=== PATIENT | female | born 2000 | race Caucasian/White ===

== ENCOUNTER 2021-11-08 12:56 | Emergency (ER) | payer OTHER ==
[2021-11-08 13:32] LABS: BASOPHILS % (AUTO) 0.4 %; EOSINOPHILS % (AUTO) 0.5 %; HCT - HEMATOCRIT 43.5 % (37.0-47.0); HGB - HEMOGLOBIN 14.4 g/dL (12.0-16.0); LYMPHOCYTES % (AUTO) 26.3 %; MEAN CORPUSCULAR HEMOGLOBIN 28.9 pg (27.0-31.0); MEAN CORPUSCULAR HGB CONC 33.1 g/dL (32.0-36.0); MEAN CORPUSCULAR VOLUME 87.3 fL (81.0-99.0); MEAN PLATELET VOLUME 10.4 fL (7.9-10.8); MONOCYTES # (AUTO) 0.5 10^3/uL (0.0-1.0); MONOCYTES % (AUTO) 6.7 %; NEUTROPHILS % (AUTO) 65.8 %; PLT - PLATELET COUNT 292 10^3/uL (130-450); RED BLOOD COUNT 4.98 10^6/uL (4.20-5.40); RED CELL DISTRIBUTION WIDTH 11.9 % (12.0-15.0); WHITE BLOOD COUNT 7.6 x10^3/uL (4.8-10.8)
[2021-11-08 13:58] LABS: ALBUMIN 4.1 g/dL (3.2-5.5); ALBUMIN/GLOBULIN RATIO 1.3 (1.0-2.2); BILIRUBIN,TOTAL 0.9 mg/dL (0.2-1.0); CALCIUM 9.1 mg/dL (8.5-10.3); CREATININE 0.7 mg/dL (0.4-1.0); POTASSIUM 4.1 mmol/L (3.5-5.0); TOTAL PROTEIN 7.2 g/dL (6.7-8.2)
[2021-11-08] MEDS ORDERED: SODIUM CHLORIDE 0.9% 1,000 ML IV STA (13:58)
--- NOTE | 2021-11-08 13:59 | ED Physician Documentation ---
PD HPI ABD PAIN - Stated complaint Stated Complaint: ABD PAIN/NAUSEA - Chief complaint Chief Complaint: Abd Pain - History obtained from History obtained from: Patient - Additional information Additional information: Patient comes the emergency department chief complaint of lower abdominal pain with nausea and vomiting for the last approximately 5 days. She states she has not been able to keep anything down including food or liquids during that time. She states it started with some mild lower abdominal discomfort and did not seem to be too bad. She went to the fair the next day and after eating some the food at the fair, began vomiting. That was 5 days ago. The patient denies a feeling of fever or chills, though she was seen in the urgent care clinic a couple of days ago and told she had a temperature of about 100 orally. Patient denies any cough or shortness of breath. She denies dysuria, back pain, diarrhea, or vaginal symptoms. She is not known to be . No other complaints at this time. Review of Systems Ten Systems: 10 systems reviewed and negative Constitutional: reports: Reviewed and negative Eyes: reports: Reviewed and negative Ears: reports: Reviewed and negative Nose: reports: Reviewed and negative Throat: reports: Reviewed and negative Cardiac: reports: Reviewed and negative Respiratory: reports: Reviewed and negative GI: reports: Abdominal Pain, Nausea, Vomiting : reports: Reviewed and negative Skin: reports: Reviewed and negative Musculoskeletal: reports: Reviewed and negative Neurologic: reports: Reviewed and negative Psychiatric: reports: Reviewed and negative Endocrine: reports: Reviewed and negative Immunocompromised: reports: Reviewed and negative PD PAST MEDICAL HISTORY - Past Medical History Past Medical History: Yes - Past Surgical History Past Surgical History: No - Present Medications Home Medications: Ambulatory Orders Medication Instructions Recorded Confirmed Ondansetron Odt [Zofran] 4 mg TL Q6H PRN #10 tablet 11/08/21 - Allergies Allergies/Adverse Reactions: Allergies Allergy/AdvReac Type Severity Reaction Status Date / Time sumatriptan Allergy Anaphylaxis Verified 11/08/21 13:05 - Social History Does the pt smoke?: No Smoking Status: Never smoker Does the pt drink ETOH?: No Does the pt have substance abuse?: No - Immunizations Immunizations are current?: Yes - POLST Patient has POLST: No PD ED PE NORMAL - Vitals Vital signs reviewed: Yes - General General: Alert and oriented X 3, No acute distress, Well developed/nourished - HEENT HEENT: Atraumatic, PERRL, EOMI, Moist mucous membranes - Neck Neck: Supple, no meningeal sign - Cardiac Cardiac: RRR, No murmur, Strong equal pulses - Respiratory Respiratory: No respiratory distress, Clear bilaterally - Abdomen Abdomen: Soft, Non distended, Other (Moderate tenderness left lower quadrant, no rebound or guarding) - Back Back: No CVA TTP - Derm Derm: Normal color, Warm and dry, No rash - Extremities Extremities: No deformity, No edema - Neuro Neuro: Alert and oriented X 3, 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, No motor deficit, Normal speech, Other (Grossly intact) - Psych Psych: Normal mood, Normal affect Results - Vitals Vitals: Vital Signs - 24 hr 11/08/21 11/08/21 13:01 15:50 Temperature 36.9 C Heart Rate 76 48 L Respiratory 16 18 Rate Blood Pressure 145/58 H 130/70 O2 Saturation 99 99 Oxygen O2 Source Room air - Labs Labs: Laboratory Tests 11/08/21 11/08/21 11/08/21 13:17 13:17 14:20 WBC 7.6 RBC 4.98 Hgb 14.4 Hct 43.5 MCV 87.3 MCH 28.9 MCHC 33.1 RDW 11.9 L Plt Count 292 MPV 10.4 Neut # (Auto) 5.0 Lymph # (Auto) 2.0 [place] # (Auto) 0.5 Eos # (Auto) 0.0 Baso # (Auto) 0.0 Absolute Nucleated RBC 0.00 Nucleated RBC % 0.0 Sodium 138 Potassium 4.1 Chloride 105 Carbon Dioxide 26 Anion Gap 7.0 BUN 8 Creatinine 0.7 Estimated GFR (MDRD) 108 Glucose 90 Calcium 9.1 Total Bilirubin 0.9 AST 17 ALT 19 Alkaline Phosphatase 59 Total Protein 7.2 Albumin 4.1 Globulin 3.1 Albumin/Globulin Ratio 1.3 Lipase 28 Urine Color YELLOW Urine Clarity CLEAR Urine pH 7.0 Ur Specific [place] 1.020 Urine Protein NEGATIVE Urine Glucose (UA) NEGATIVE Urine Ketones NEGATIVE Urine Occult Blood NEGATIVE Urine Nitrite NEGATIVE Urine Bilirubin NEGATIVE Urine Urobilinogen 1 (NORMAL) Ur Leukocyte Esterase NEGATIVE Ur Microscopic Review NOT INDICATED Urine Culture Comments NOT INDICATED Urine HCG, Qual NEGATIVE Urine Opiates Screen NEGATIVE Ur Oxycodone Screen NEGATIVE Urine Methadone Screen NEGATIVE Ur Propoxyphene Screen NEGATIVE Ur Barbiturates Screen NEGATIVE Ur Tricyclics Screen NEGATIVE Ur Phencyclidine Scrn NEGATIVE Ur Amphetamine Screen NEGATIVE U Methamphetamines Scrn NEGATIVE U Benzodiazepines Scrn NEGATIVE Urine Cocaine Screen NEGATIVE U Cannabinoids Screen NEGATIVE PD MEDICAL DECISION MAKING - ED course Complexity details: reviewed results, re-evaluated patient, considered differential, d/w patient ED course: The patient was treated with IV fluids, Toradol and Zofran, and worked up with laboratory studies and CT scan of the abdomen and pelvis, both of which were ultimately negative. Urinalysis was also sent and negative. I discussed the findings with the patient and that she most likely has a viral illness. We have discussed timeline for expected resolution of symptoms and the usual indications for follow-up and return. Departure - Departure Disposition: 01 Home, Self Care Clinical Impression: Viral syndrome Vomiting Qualifiers: Vomiting type: bilious vomiting Nausea presence: with nausea Qualified Code(s): R11.14 - Bilious vomiting Condition: Stable Instructions: ED Viral Syndrome, ED Nausea Vomiting Prescriptions: Ondansetron Odt [Zofran] 4 mg TL Q6H PRN #10 tablet PRN Reason: Nausea / Vomiting Comments: Your labs and CT look good, as does your urinalysis. There is no evidence of a serious condition causing your symptoms. You most likely have one of the many viruses that go around and cause such symptoms. In general, these symptoms are self-limited, given several days to week. A prescription for nausea medication has been electronically transmitted to [facility] in [place], your pharmacy of preference on record. You do not have appendicitis, diverticulitis, or gallstones, the most common conditions that would require antibiotics or surgery. You also do not have a urinary tract infection or kidney stones. Please take the medications prescribed, as needed. Take only very small amounts of clear liquids by mouth over the next 24 hours. Take only 1 or 2 sips, then wait a minimum of 20 minutes before trying it again. If you tolerate this, then you may gradually drink more clear liquid and ultimately, progressed to simple starches like saltine crackers, Ramen noodles, or white rice. If you tolerate these, then you may progress to more complex foods. You should follow-up with your primary care physician if you are not feeling better by the end of the weekend. Forms: Activity restrictions Discharge Date/Time: 11/08/21 15:55
[2021-11-08 14:24] LABS: MUDS CUTOFF CONCENTRATIONS CUTOFF CONC BELOW:
[2021-11-08 14:30] LABS: BILIRUBIN,URINE NEGATIVE (NEGATIVE); GLUCOSE, URINE (UA) NEGATIVE (NEGATIVE); KETONES,URINE (UA) NEGATIVE (NEGATIVE); LEUKOCYTE ESTERASE, URINE NEGATIVE (NEGATIVE); NITRITE,URINE NEGATIVE (NEGATIVE); OCCULT BLOOD,URINE NEGATIVE (NEGATIVE); PROTEIN,URINE NEGATIVE (NEGATIVE); UROBILINOGEN,URINE 1 (NORMAL) E.U./dL (NORMAL)
[2021-11-08 14:32] LABS: CLARITY,URINE CLEAR (CLEAR); HCG UR QUAL NEGATIVE
[2021-11-08 14:39] LABS: AMPHETAMINE SCREEN,URINE NEGATIVE (NEGATIVE); BARBITURATE SCREEN,UR NEGATIVE (NEGATIVE); BENZODIAZEPINES SCREEN, URINE NEGATIVE (NEGATIVE); COCAINE SCREEN URINE NEGATIVE (NEGATIVE); METHADONE SCREEN, URINE NEGATIVE (NEGATIVE); METHAMPHETAMINES SCREEN, URINE NEGATIVE (NEGATIVE); OPIATE SCREEN, URINE NEGATIVE (NEGATIVE); OXYCODONE SCREEN, URINE NEGATIVE (NEGATIVE); PROPOXYPHENE SCREEN, URINE NEGATIVE (NEGATIVE); THC CANNABINOID SCREEN, URINE NEGATIVE (NEGATIVE); TRICYCLIC ANTIDEPRESSANT,URINE NEGATIVE (NEGATIVE)
--- NOTE | 2021-11-08 15:28 | CT Report ---
PROCEDURE: Abdomen/Pelvis W INDICATIONS: LLQ abd pain/vomiting CONTRAST: IV CONTRAST: Optiray 320 ml: 100 PO CONTRAST: *NO PO CONTRAST TECHNIQUE: After the administration of IV contrast, 5 mm thick sections acquired from the diaphragms to the symp hysis. 5 mm thick coronal and sagittal reformats were acquired. For radiation dose reduction, the f ollowing was used: automated exposure control, adjustment of mA and/or kV according to patient size. COMPARISON: None. FINDINGS: Image quality: Excellent. ABDOMEN: Lung bases: Lung bases are clear. Heart size is normal. Solid organs: Liver and spleen are normal in size and enhancement. Gallbladder is within normal gutierrez its Biliary system is non dilated. Pancreas enhances normally. No adrenal nodules. Kidneys demons trate normal size and enhancement, without hydronephrosis. Peritoneum and bowel: Bowel loops demonstrate normal wall thickness and caliber. No free fluid or a ir. Normal appendix. Nodes and vessels: No retroperitoneal or mesenteric adenopathy by size criteria. Aorta and inferior vena cava are normal in size. Miscellaneous: No ventral hernias. PELVIS: Genitourinary: Bladder wall thickness is normal. Miscellaneous: No inguinal hernias or adenopathy. Bones: No suspicious bony lesions. No vertebral body compression fractures. IMPRESSION: 1. No acute process. 2. Normal appendix. Reviewed by: Gary Loomis MD on 11/08/2021 3:26 PM PDT Approved by: Gary Loomis MD on 11/08/2021 3:26 PM PDT Station ID: [id number]
[2021-11-08] MEDS ORDERED: KETOROLAC 30 MG/ML VIAL IVP STA (15:42)
[2021-11-08 15:51] VITALS: BP 130/70
== END 2021-11-08 15:55 | disposition home or self-care (01) ==
LOC: ED 12:56
DX: B34.9 Viral infection, unspecified (principal)
CPT/HCPCS: 36415; 74177; 80053; 80306; 81003; 81025; 83690; 85025; 96374; 99282; 99284; Q9967; 81001; 87086

== ENCOUNTER → 2022-10-11 | Outpatient (CLI) | payer OTHER | END | disposition short-term general hospital (02) | LOC: EMS 16:11 | DX: R07.9 Chest pain, unspecified (principal); R00.0 Tachycardia, unspecified | CPT/HCPCS: A0425; A0427 ==

== ENCOUNTER 2023-01-16 16:36 | Emergency (ER) | payer OTHER ==
[2023-01-16 16:48] VITALS: BP 150/80; O2SAT 99
[2023-01-16] MEDS ORDERED: IBUPROFEN 800 MG TABLET PO STA (16:53)
--- NOTE | 2023-01-16 16:57 | ED Physician Documentation ---
PD HPI LOWER EXT INJURY - Stated complaint Stated Complaint: LT ANK INJ - Chief complaint Chief Complaint: Ext Problem - History obtained from History obtained from: Patient - Additional information Additional information: Inversion injury of the left ankle with moderate pain, last happened at 9 AM today while at work. Is able to walk and bear weight. No other injuries. 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 - Past Surgical History Past Surgical History: No - Present Medications Home Medications: Ambulatory Orders Medication Instructions Recorded Confirmed Metoprolol Tartrate [Lopressor] 25 mg PO DAILY 01/16/23 - Allergies Allergies/Adverse Reactions: Allergies Allergy/AdvReac Type Severity Reaction Status Date / Time sumatriptan Allergy Anaphylaxis Verified 11/08/21 13:05 - Social History Does the pt smoke?: No Smoking Status: Never smoker Does the pt drink ETOH?: No Does the pt have substance abuse?: No - Immunizations Immunizations are current?: Yes - POLST Patient has POLST: No PD ED PE NORMAL - Vitals Vital signs reviewed: Yes - General General: Alert and oriented X 3, No acute distress - Extremities Extremities: Other (Tenderness over the ATFL more than the lateral malleolus of the left ankle. No swelling or deformity. No proximal foot tenderness. No proximal fibular tenderness.) - Neuro Neuro: Alert and oriented X 3, Normal speech Results - Vitals Vitals: Vital Signs - 24 hr 01/16/23 01/16/23 16:43 16:53 Temperature 37 C Heart Rate 79 Respiratory 18 17 Rate Blood Pressure 150/80 H O2 Saturation 99 Oxygen O2 Source Room air - Rads (name of study) Three-view x-ray of left ankle is negative Relevant Findings:: Final report received, EMP independent interpretation of test PD Medical Decision Making - ED course ED course: 22-year-old woman with ankle sprain, x-ray done given pain over the malleolus as well with negative findings. Wanted a boot as opposed to an Aircast. Departure - Departure Disposition: 01 Home, Self Care Clinical Impression: Left ankle sprain Qualifiers: Encounter type: initial encounter Involved ligament of ankle: anterior talofibular ligament Qualified Code(s): S93.492A - Sprain of other ligament of left ankle, initial encounter Condition: Good Record reviewed to determine appropriate education?: Yes Instructions: ED Sprain Ankle W X Ray Comments: Tylenol and/or ibuprofen as needed for pain. You can walk and bear weight as tolerated but keep it up as much as possible. Ice may be helpful as well. Follow-up with your doctor in a week if not improving. Forms: PCP List Discharge Date/Time: 01/16/23 17:52
--- NOTE | 2023-01-16 18:01 | XRAY Report ---
PROCEDURE: Ankle 3 View LT INDICATIONS: ankle inj TECHNIQUE: 3 views of the ankle were acquired. COMPARISON: None. FINDINGS: Bones: No fractures or dislocations. Ankle mortise is normally aligned. No suspicious bony lesions . Soft tissues: No tibiotalar joint effusion. Achilles tendon appears normal. IMPRESSION: No acute bony abnormality. Ankle mortise is congruent. Reviewed by: Aidan Hinton MD on 01/16/2023 6:00 PM [facility] Approved by: Aidan Hinton MD on 01/16/2023 6:00 PM [facility] Station ID: [id number]
== END 2023-01-16 17:52 | disposition home or self-care (01) ==
LOC: ED 16:36
DX: S93.492A Sprain of other ligament of left ankle, initial encounter (principal); X50.1XXA Overexertion from prolonged static or awkward postures, initial encounter; Y99.0 Civilian activity done for income or pay
CPT/HCPCS: 73610; 99283; A9270

== ENCOUNTER 2023-02-05 08:00 | Outpatient (CLI) | payer OTHER ==
[2023-02-06 12:09] LABS: ADENOVIRUS F 40/41 Not Detected (Not Detected); ASTROVIRUS Not Detected (Not Detected); C DIFFICILE TOXIN A/B Not Detected (Not Detected); CAMPYLOBACTER Not Detected (Not Detected); CRYPTOSPORIDIUM Not Detected (Not Detected); CYCLOSPORA CAYETANENSIS Not Detected (Not Detected); ENTAMOEBA HISTOLYTICA Not Detected (Not Detected); ENTEROAGGREGATIVE E COLI Not Detected (Not Detected); ENTEROPATHOGENIC E COLI Not Detected (Not Detected); ENTEROTOXIGENIC E COLI Not Detected (Not Detected); GIARDIA LAMBLIA Not Detected (Not Detected); NOROVIRUS GI/GII Not Detected (Not Detected); PLESIOMONAS SHIGELLOIDES Not Detected (Not Detected); ROTAVIRUS A Not Detected (Not Detected); SALMONELLA Not Detected (Not Detected); SAPOVIRUS Detected (Not Detected); SHIGA-TOXIN-PRODUCING E COLI Not Detected (Not Detected); SHIGELLA/ENTEROINVASIVE E COLI Not Detected (Not Detected); VIBRIO Not Detected (Not Detected); VIBRIO CHOLERAE Not Detected (Not Detected); YERSINIA ENTEROCOLITICA Not Detected (Not Detected)
== END 2023-02-05 23:59 | disposition home or self-care (01) ==
LOC: LAB.R 08:00
PROVIDERS: ATTEND Physician Assistant
DX: K52.9 Noninfective gastroenteritis and colitis, unspecified (principal)
CPT/HCPCS: 87507

== ENCOUNTER 2023-02-10 22:30 | Inpatient (IN) | payer OTHER ==
[2023-02-10 23:03] LABS: BILIRUBIN,URINE NEGATIVE (NEGATIVE); GLUCOSE, URINE (UA) NEGATIVE (NEGATIVE); KETONES,URINE (UA) NEGATIVE (NEGATIVE); LEUKOCYTE ESTERASE, URINE NEGATIVE (NEGATIVE); NITRITE,URINE NEGATIVE (NEGATIVE); OCCULT BLOOD,URINE NEGATIVE (NEGATIVE); PH,URINE 6.5 PH (5.0-7.5); PROTEIN,URINE NEGATIVE (NEGATIVE); UROBILINOGEN,URINE 2 E.U./dL (NORMAL)
[2023-02-10 23:04] LABS: CLARITY,URINE CLEAR (CLEAR); HCG UR QUAL NEGATIVE
[2023-02-10 23:22] LABS: BASOPHILS % (AUTO) 0.3 %; EOSINOPHILS % (AUTO) 0.7 %; HCT - HEMATOCRIT 43.6 % (37.0-47.0); HGB - HEMOGLOBIN 14.4 g/dL (12.0-16.0); LYMPHOCYTES # (AUTO) 2.2 10^3/uL (1.5-3.5); LYMPHOCYTES % (AUTO) 35.3 %; MEAN CORPUSCULAR HEMOGLOBIN 28.7 pg (27.0-31.0); MEAN PLATELET VOLUME 10.1 fL (7.9-10.8); MONOCYTES # (AUTO) 0.6 10^3/uL (0.0-1.0); MONOCYTES % (AUTO) 9.6 %; NEUTROPHILS # (AUTO) 3.3 10^3/uL (1.5-6.6); NEUTROPHILS % (AUTO) 53.9 %; PLT - PLATELET COUNT 283 10^3/uL (130-450); RED BLOOD COUNT 5.01 10^6/uL (4.20-5.40); RED CELL DISTRIBUTION WIDTH 11.9 % (12.0-15.0); WHITE BLOOD COUNT 6.1 x10^3/uL (4.8-10.8)
[2023-02-10] MEDS ORDERED: ONDANSETRON 4 MG/2 ML VIAL IVP STA (23:34)
[2023-02-10] MEDS ORDERED: HYDROmorphone 1 MG/ML CARPUJECT IVP STA (23:34)
[2023-02-10] MEDS ORDERED: SODIUM CHLORIDE 0.9% 1,000 ML IV STA (23:34)
[2023-02-10 23:38] LABS: ALBUMIN 4.4 g/dL (3.2-5.5); ALBUMIN/GLOBULIN RATIO 1.6 (1.0-2.2); BILIRUBIN,TOTAL 0.4 mg/dL (0.2-1.0); CALCIUM 9.2 mg/dL (8.5-10.3); CREATININE 0.6 mg/dL (0.6-1.3); POTASSIUM 3.5 mmol/L (3.5-4.5); TOTAL PROTEIN 7.2 g/dL (6.4-8.9)
--- NOTE | 2023-02-11 01:03 | Ultrasound Report ---
PROCEDURE: Abdomen Limited INDICATIONS: abd. pain TECHNIQUE: Real-time focused scanning was performed of the abdomen, with image documentation. COMPARISONS: CT abdomen and pelvis dated 11/08/2021. FINDINGS: Liver: Liver is heterogeneous in echotexture with possible 1.6 x 0.9 cm echogenic focus in the left hepatic lobe, possibly representing a hemangioma. There is normal hepatopedal flow. Gallbladder: Gallbladder wall measures at the upper limits of normal at 3 mm. Otherwise, no sonograph ic evidence for acute cholecystitis or cholelithiasis. Biliary ducts: Intrahepatic bile ducts are non-dilated. Extrahepatic bile duct caliber measures 4 m m. Normal is 6-7 mm or less in diameter, or 10 mm or less post-cholecystectomy. Pancreas: Not well visualized due to overlying bowel gas. Right kidney: Normal in size and echotexture. Right kidney measures 10.3 cm long. Tiny punctate echo genic foci measuring approximately 2 mm in size. No hydronephrosis. No solid masses. No complex bernadette l cystic lesions which require follow-up. Aorta: Visualized aorta is normal in caliber at less than 3 cm. IVC: Intrahepatic inferior vena cava is patent. Miscellaneous: No free abdominal fluid. IMPRESSION: Limited evaluation secondary to patient's inability to perform adequate breath-hold. There is also mo derate overlying bowel gas. There is heterogeneous hepatic echotexture with possible 1.6 cm left hepa tic lobe hemangioma. This was not definitively seen on comparison CT. Punctate nonobstructing 2 mm right renal stones. Borderline thickening of the gallbladder wall without evidence for cholelithiasis or acute cholecysti tis. Reviewed by: Tyler Gonsalez MD on 02/11/2023 1:01 AM PST Approved by: Tyler Gonsalez MD on 02/11/2023 1:01 AM PST Station ID: [id number]
[2023-02-11] MEDS ORDERED: ONDANSETRON 4 MG/2 ML VIAL IVP STA ×2 (01:20→05:19)
[2023-02-11] MEDS ORDERED: SODIUM CHLORIDE 0.9% 1,000 ML IV STA ×2 (01:20→05:19)
[2023-02-11] MEDS ORDERED: iohexoL-300 100 ML VIAL IVP ONE (01:24)
[2023-02-11] MEDS ORDERED: LIDOCAINE VISCOUS 2% 15 ML UDC MM STA (01:37)
[2023-02-11] MEDS ORDERED: MAG HYDROX/AL HYDROX/SIMETH 30 ML UDC PO STA ×2 (01:37→06:38)
[2023-02-11] MEDS ORDERED: KETOROLAC 30 MG/ML VIAL IVP STA (01:38)
[2023-02-11] MEDS ORDERED: PANTOPRAZOLE 40 MG VIAL IVP STA (01:38)
--- NOTE | 2023-02-11 01:59 | CT Report ---
PROCEDURE: ABDOMEN/PELVIS W INDICATIONS: abd. pain, TTP (RUQ, LLQ) CONTRAST: Omni 300 100ml TECHNIQUE: After the administration of intravenous contrast, 5 mm thick sections acquired from the diaphragms to the symphysis. 5 mm thick coronal and sagittal reformats were acquired. For radiation dose reducti on, the following was used: automated exposure control, adjustment of mA and/or kV according to brit ent size. COMPARISON: 11/08/2021 and ultrasound performed earlier same day. FINDINGS: Image quality: Diagnostic. Lung bases and heart: Unremarkable. Liver: Liver appears unremarkable in CT appearance. Previously described possible echogenic lesion in the left hepatic lobe is not visualized on CT. There is diffuse hypoattenuation of the liver relativ e to the spleen compatible with mild hepatic steatosis. Gallbladder and biliary tree: No radiopaque stones or wall thickening. No biliary dilation. Spleen: No splenomegaly. Pancreas: No pancreatic ductal dilation. Adrenals: No adrenal nodule. Kidneys and ureters: No hydronephrosis. No renal cystic lesion which requires follow up. No solid mas s. Bowel and peritoneum: No bowel distension. No pathologic free fluid. Normal appendix. Lymph nodes: Multiple scattered prominent mesenteric lymph nodes are more notable in number rather th an size and likely reactive in etiology. Vessels: No infrarenal aortic aneurysm. PELVIS Reproductive organs: Unremarkable. Bladder: No abnormal wall thickening, accounting for underdistension. Pelvic lymph nodes: No pelvic adenopathy by size criteria. Bones: No aggressive osseous abnormality. Other: No significant ventral or inguinal hernia. IMPRESSION: Multiple scattered prominent mesenteric lymph nodes which are more notable for number rather than siz e and are favored to represent reactive lymph nodes. Follow-up imaging can be considered if persisten t or worsening symptoms. Otherwise, no acute abnormalities identified in the abdomen or pelvis. The appendix is normal. Mild hepatic steatosis. Reviewed by: Tyler Gonsalez MD on 02/11/2023 1:58 AM PST Approved by: Tyler Gonsalez MD on 02/11/2023 1:58 AM PST Station ID: [id number]
--- NOTE | 2023-02-11 02:29 | ED Physician Documentation ---
PD HPI ABD PAIN - Stated complaint Stated Complaint: N/V/D/ABD PX - Chief complaint Chief Complaint: Abd Pain - History obtained from History obtained from: Patient - Additional information Additional information: HPI from patient. Patient c/o 8 days of nausea, vomiting, diarrhea, and generalized abdominal pain. There was no inciting event. The symptoms are exacerbated with PO intake; the n/v has progressed to the point of not tolerating any PO intake including liquids (she says she did have a small amount of food last night for dinner but vomited several hours later what appeared to be undigested food that she had for dinner). Patient did not have improvement with Zofran (prescribed for a previous illness, but was not an outdated/ prescription). 5 days ago, she went to a walk-in clinic for evaluation of the symptoms. She says that a stool test was performed and this detected no evidence of infectious cause. She says that Phenergan was prescribed. However, she says that not only did the Phenergan help with the symptoms, but she describes significant akathisia and thus did not take any more doses. Patient denies fever. Denies past abd/pelvic surgical history. Review of Systems Constitutional: denies: Fever Cardiac: reports: Reviewed and negative Respiratory: reports: Reviewed and negative GI: reports: Abdominal Pain, Abdominal Swelling, Nausea, Vomiting, Diarrhea. 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 - Past Surgical History Past Surgical History: No - Present Medications Home Medications: Ambulatory Orders Medication Instructions Recorded Confirmed Metoprolol Tartrate [Lopressor] 25 mg PO DAILY 01/16/23 - Allergies Allergies/Adverse Reactions: Allergies Allergy/AdvReac Type Severity Reaction Status Date / Time sumatriptan Allergy Anaphylaxis Verified 02/10/23 22:49 promethazine [From Phenergan] AdvReac Anxiety Verified 02/11/23 08:00 - Social History Does the pt smoke?: No Smoking Status: Never smoker Does the pt drink ETOH?: No Does the pt have substance abuse?: No - Immunizations Immunizations are current?: Yes - POLST Patient has POLST: No PD ED PE NORMAL - Vitals Vital signs reviewed: Yes - General General: Alert and oriented X 3, Other (appears to be in painful discomfort) - HEENT HEENT: Other (tacky/pasty mucous membranes) - Neck Neck: Supple, no meningeal sign - Cardiac Cardiac: RRR, No murmur - Respiratory Respiratory: No respiratory distress, Clear bilaterally - Abdomen Abdomen: Normal bowel sounds, Soft, Non distended, Other (mild TTP diffusely but more prominent in RUQ and LLQ; no rebound nor guarding) - Back Back: No CVA TTP Results - Vitals Vitals: Vital Signs - 24 hr 02/10/23 02/10/23 02/11/23 22:41 22:48 00:05 Temperature 36.7 C Heart Rate 86 86 67 Respiratory 18 18 17 Rate Blood Pressure 121/71 O2 Saturation 98 98 98 02/11/23 02/11/23 02/11/23 02:00 02:39 04:00 Temperature Heart Rate 67 66 71 Respiratory 17 17 17 Rate Blood Pressure 101/49 L O2 Saturation 97 98 99 02/11/23 06:00 Temperature Heart Rate 64 Respiratory 17 Rate Blood Pressure 128/65 O2 Saturation 96 Oxygen O2 Source Room air - Labs Labs: Laboratory Tests 02/10/23 02/10/23 02/10/23 22:54 23:07 23:07 WBC 6.1 RBC 5.01 Hgb 14.4 Hct 43.6 MCV 87.0 MCH 28.7 MCHC 33.0 RDW 11.9 L Plt Count 283 MPV 10.1 Neut # (Auto) 3.3 Lymph # (Auto) 2.2 [place] # (Auto) 0.6 Eos # (Auto) 0.0 Baso # (Auto) 0.0 Absolute Nucleated RBC 0.00 Nucleated RBC % 0.0 Sodium 137 Potassium 3.5 Chloride 104 Carbon Dioxide 27 Anion Gap 6.0 BUN 7 Creatinine 0.6 Estimated GFR (MDRD) 126 Glucose 94 Calcium 9.2 Total Bilirubin 0.4 AST 12 ALT 17 Alkaline Phosphatase 59 Total Protein 7.2 Albumin 4.4 Globulin 2.8 Albumin/Globulin Ratio 1.6 Lipase 57 Urine Color YELLOW Urine Clarity CLEAR Urine pH 6.5 Ur Specific [place] 1.010 Urine Protein NEGATIVE Urine Glucose (UA) NEGATIVE Urine Ketones NEGATIVE Urine Occult Blood NEGATIVE Urine Nitrite NEGATIVE Urine Bilirubin NEGATIVE Urine Urobilinogen 2 H Ur Leukocyte Esterase NEGATIVE Ur Microscopic Review NOT INDICATED Urine Culture Comments NOT INDICATED Urine HCG, Qual NEGATIVE - Rads (name of study) RUQ US Relevant Findings:: Prelim report reviewed, See rad report CT A/P with IV contrast Relevant Findings:: Prelim report reviewed, See rad report PD Medical Decision Making - ED course Complexity details: reviewed results, re-evaluated patient, considered differential, d/w patient ED course: I am able to see the results of the stool studies that were performed 02/05/2023, and there is a positive result on this test for sapovirus. This could certainly explain GI symptoms and cramping abdominal discomfort but the persistence of symptoms this long would be atypical for this organism. The panel was negative for a number of other infectious agents including c. diff, salmonella, norovirus, rotavirus, shigella, enteroinvasive e. coli, campylobacter. Patient CBC is normal except for low RDW. ER abdominal panel is normal. Urinalysis is normal except for urobilinogen. Urine hCG negative. Right upper quadrant ultrasound is limited, mostly due to overlying bowel gas, but there are no concerning or diagnostic findings on this study. A 1.6 cm hepatic lesion is noted suspicious for hemangioma; this can be followed up in the outpatient setting. Incidental note is also made of "punctate nonobstructing 2 mm right renal stones" (per radiologist reading).Radiologist reading also notes "borderline thickening of the gallbladder wall without evidence for cholelithiasis or acute cholecystitis". CT with contrast of the abdomen and pelvis is interpreted by the radiologist as "multiple scattered prominent mesenteric lymph nodes which are more notable for number rather than size and are favored to represent reactive lymph nodes. Follow-up imaging can be considered if persistent or worsening symptoms. Otherwise no acute abnormalities identified in the abdomen or pelvis. The appendix is normal. Mild hepatic steatosis". Despite nondiagnostic findings on these tests, patient's symptoms were persistent, particularly the nausea and vomiting, despite treatment which included IV fluids, IV zofran (8 mg IVP, subsequently given 4mg IV), PO viscous lidocaine with maalox w/ simethicone, 40mg IVP protonix, 30mg IV ketorolac. She was also given 1mg IV dilaudid which improved the pain level but required a second dose for gradually returning pain. The second dose did achieve good analgesia. Despite these interventions, she had recurrent vomiting. I discussed this case with telehealth who agrees with admission to [facility] for persistent/intractable vomiting. I did not order phenergan due to the description of akithesia with recent PO dose (reglan and compazine likely to cause similar side effect). Would consider inapsine but [facility] does not currently have this medication in stock. Telehealth practitioner says his orders will include doxylamine. Departure - Departure Disposition: ED Place in Observation Clinical Impression: Intractable vomiting with nausea, Abdominal pain Condition: Good
[2023-02-11] MEDS ORDERED: HYDROmorphone 1 MG/ML CARPUJECT IVP STA (05:19)
[2023-02-11] MEDS ORDERED: ONDANSETRON ODT 4 MG TABLET TL PRN (06:41)
[2023-02-11] MEDS ORDERED: DOXYLAMINE 25 MG TABLET PO PRN (06:45)
[2023-02-11] MEDS ORDERED: PANTOPRAZOLE 40 MG TABLET PO SCH (07:00)
[2023-02-11 07:13] LABS: BASOPHILS % (AUTO) 0.2 %; EOSINOPHILS # (AUTO) 0.1 10^3/uL (0.0-0.7); EOSINOPHILS % (AUTO) 1.6 %; HGB - HEMOGLOBIN 13.5 g/dL (12.0-16.0); LYMPHOCYTES # (AUTO) 2.4 10^3/uL (1.5-3.5); LYMPHOCYTES % (AUTO) 47.8 %; MEAN CORPUSCULAR HEMOGLOBIN 28.7 pg (27.0-31.0); MEAN CORPUSCULAR HGB CONC 32.9 g/dL (32.0-36.0); MEAN PLATELET VOLUME 10.1 fL (7.9-10.8); MONOCYTES # (AUTO) 0.5 10^3/uL (0.0-1.0); MONOCYTES % (AUTO) 9.2 %; NEUTROPHILS # (AUTO) 2.1 10^3/uL (1.5-6.6); PLT - PLATELET COUNT 240 10^3/uL (130-450); RED BLOOD COUNT 4.71 10^6/uL (4.20-5.40); RED CELL DISTRIBUTION WIDTH 11.9 % (12.0-15.0)
[2023-02-11 07:32] LABS: ALBUMIN 3.9 g/dL (3.2-5.5); ALBUMIN/GLOBULIN RATIO 1.6 (1.0-2.2); BILIRUBIN,TOTAL 0.4 mg/dL (0.2-1.0); CALCIUM 8.6 mg/dL (8.5-10.3); CREATININE 0.6 mg/dL (0.6-1.3); MAGNESIUM 1.7 mg/dL (1.7-2.3); POTASSIUM 3.4 mmol/L (3.5-4.5); TOTAL PROTEIN 6.3 g/dL (6.4-8.9)
[2023-02-11 07:44] LABS: THYROID STIMULATING HORMONE 5.65 uIU/mL (0.34-5.60)
--- NOTE | 2023-02-11 08:09 | HISTORY & PHYSICAL EXAMINATION ---
Chief Complaint - Chief Complaint Chief Complaint: N/V/D, abd pain History of Present Illness - Admitted From Admitted From:: ED - History Obtained From History obtained from: ED provider and the patient - History of Present Illness HPI Comment/Other: This is a 22-year-old female, is a [employer]ER, works here, with a history of migraines and takes oral contraceptive pill, has polycystic ovaries. She presented to the ER last night with complaints of 9 days of nausea, vomiting, diarrhea and abdominal pain. This is not the abd pain of her ovarian cysts. She has not even been able to keep down liquids orally for a day. She gets crampy abd pain and describes the diarrhea as watery or estrada-yellow and mucosy. She had a workup started on 02/05 in a clinic and a stool culture was sent off. This came back showing positive Sapovirus but negative for other organisms and neg for C. diff. In the ER today, she had abdominal pain and tenderness in the right abdomen and had incessant nausea and vomiting. She has required several doses of Dilaudid IV which helped the pain temporarily, and had multiple doses of antiemetics including repeat doses of Zofran, 8 mg, 4 mg doses, Phenergan was also given that caused her to be dystonic. Droperidol is not available. She underwent workup with CT abdomen pelvis that showed innumerable mesenteric lymph nodes, felt to be reactive. She had incidental findings of hepatic steatosis and a 1.6 cm left liver mass (probable hemangioma) and a punctate right-sided renal stones. The ER doctor reported these findings to her. She also underwent right upper quadrant ultrasound which was negative but there was a lot of intestinal gas seen. Her labs were stable and her hcg neg. While in the ER, she also received iv fluids, a GI cocktail, IV Protonix, IV Toradol and po Simethicone. Despite these, she has continued nausea and vomiting and the abd pain returns, is rated 9/10. The ER doctor spoke to the night Hospitalist who placed orders for Observation management of this patient, but did not meet the patient by video. The ER provider then spoke to me about the patient. She will be brought into Observation status for managing intractable nausea and vomiting. History - Past Medical History Cardiovascular: reports: None Respiratory: reports: None Neuro: reports: Migraines Endocrine/Autoimmune: reports: None CASH APPLICATION CLERK: reports: Other : reports: Other (Polycystic ovarian disease) Psych: reports: None Musculoskeletal: reports: None Derm: reports: None MRSA Hx?: No - Family & Social History Living arrangement: At home Living Situation: With spouse/s.o. Social History Notes: She is a non-smoker and drinks rarely. 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 - POLST Patient has POLST: No Meds/Allgy - Home Medications Home Medications: Ambulatory Orders Medication Instructions Recorded Confirmed Metoprolol Tartrate [Lopressor] 12.5 mg PO DAILY PRN 01/16/23 02/11/23 Norethindrone 0.35 mg PO DAILY 02/11/23 02/11/23 Promethazine [Phenergan] 25 mg PO Q6H PRN 02/11/23 02/11/23 Sertraline HCl 100 mg PO DAILY 02/11/23 02/11/23 - Allergies Allergies/Adverse Reactions: Allergies Allergy/AdvReac Type Severity Reaction Status Date / Time sumatriptan Allergy Anaphylaxis Verified 02/10/23 22:49 promethazine [From Phenergan] AdvReac Anxiety Verified 02/11/23 08:00 Review of Systems - Constitutional Constitutional: reports: Poor appetite - Gastrointestinal Gastrointestinal: reports: Abdominal pain, Abdominal distention, Diarrhea, Nausea, Vomiting - All Other Systems All Other Systems: reports: Reviewed and negative Exam - Vital Signs Vital Signs: Vital Signs x48h Pulse Resp BP Pulse Ox 02/11/23 06:00 64 17 128/65 96 02/11/23 04:00 71 17 99 02/11/23 02:39 66 17 101/49 L 98 02/11/23 02:00 67 17 97 02/11/23 00:05 67 17 98 - Physical Exam General Appearance: positive: Mild distress (from abd cramps) Eyes Bilateral: positive: Normal inspection, EOMI ENT: positive: No signs of dehydration Neck: positive: Nml inspection, No JVD Respiratory: positive: No respiratory distress, Breath sounds nml Cardiovascular: positive: Regular rate & rhythm, No murmur Abdomen: positive: Non-tender, No organomegaly, Nml bowel sounds Skin: positive: Warm, Dry Extremities: positive: Non-tender, No pedal edema Neurologic/Psychiatric: positive: Oriented x3, CN's nml (2-12), Motor nml Conclusion/Plan - Problem List (1) Intractable vomiting with nausea Conclusion/Plan: Etiology is not entirely clear. Her Sapovirus positive stool finding suggests that she had a viral ga stroenteritis. It is usually self-limited with symptoms subsiding in under a week. Hers have been lasting for 9 days. Excessive gas is found on imaging which could add to some of the symptoms but no t 9/10 pain Plan: Bowel rest by having clear liquid diet IV fluids Pain medications to include Tylenol and as needed Dilaudid iv Antiemetics with Zofran IV since Zofran trans lingual is not helping. The telemedicine night doctor also put her on Unisom and Pyridoxine which sometimes helps and nausea and vomiting of . I will add Haldol as needed nausea and vomiting as well Monitor for developing a surgical abdomen and will consider Gen Surg consult Avoid medications that could increase nausea such as marijuana (2) Diarrhea Conclusion/Plan: Her does not have any sx. She cannot remember eating anything unusual before her sx started. 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 Plan: Symptomatic treatment as in #1 and cont iv fluids (3) Polycystic ovarian disease Conclusion/Plan: Plan: Cont her hormonal meds Check a TSH, given her obesity (BMI 36.9) (4) Migraines Conclusion/Plan: As per Hx, none now Plan: Cont her B-yohana dosing for this - Lab Results Fish Bones: 02/12/23 10:59 02/12/23 10:59 - Diagnostic Imaging Results Diagnostic Imaging Results: positive: Final report reviewed
[2023-02-11] MEDS ORDERED: METOPROLOL TARTRATE 25 MG TABLET PO PRN (09:00)
[2023-02-11] MEDS: LACTATED RINGERS 1,000 ML IV SCH ×3 (09:04→23:15)
[2023-02-11] MEDS: PYRIDOXINE 100 MG TABLET PO SCH (09:06)
[2023-02-11] MEDS: SODIUM CHLORIDE FLUSH 0.9% 10 ML SYRINGE IVP SCH ×2 (09:06→16:29)
[2023-02-11] MEDS: ACETAMINOPHEN 325 MG TABLET PO PRN ×2 (09:06→16:23)
[2023-02-11] MEDS: SUCRALFATE 1 GM/10 ML UDC PO SCH ×4 (09:09→21:47)
[2023-02-11] MEDS: LACTOBACILLUS RHAMNOSUS GG CAPSULE PO SCH (09:12)
[2023-02-11] MEDS: SIMETHICONE CHEW 80 MG TABLET PO SCH ×3 (12:43→21:39)
[2023-02-11] MEDS: HYDROmorphone 1 MG/ML CARPUJECT IVP PRN ×4 (12:44→23:51)
[2023-02-11] MEDS: HALOPERIDOL 5 MG/ML VIAL IVP PRN ×2 (12:44→21:37)
[2023-02-11] MEDS: ONDANSETRON 4 MG/2 ML VIAL IVP PRN ×3 (14:40→23:44)
--- NOTE | 2023-02-11 14:49 | PHARMACY PROGRESS NOTE ---
- Best Possible Medication History Admit Date and Time: 02/11/23 0641 Processed by: Pharmacy Medication History completed: Yes Patient Interview: Completed Secondary Source(s): Insurance records As the person ultimately responsible for medication therapy, providers are able to order a medication from an existing home medication list in [facility] via the "Reconcile Routine" prior to Confirmation of that medication by presidential support specialist. Such practice is discouraged except when the physician, in their clinical judgment, deems that a medical need exists for a medication without regard to previous use.
[2023-02-11] MEDS ORDERED: SUCRALFATE 1 GM/10 ML UDC PO SCH ×2 (16:30→22:00)
[2023-02-11] MEDS: SODIUM CHLORIDE FLUSH 0.9% 10 ML SYRINGE IVP PRN ×4 (18:44→23:51)
[2023-02-11] MEDS: NORETHINDRONE 0.35 MG PO SCH (18:45)
[2023-02-11] MEDS ORDERED: NORETHINDRONE 0.35 MG PO SCH (19:30)
[2023-02-11] MEDS: PANTOPRAZOLE 40 MG VIAL IV SCH (21:36)
[2023-02-11] MEDS: LOPERAMIDE 2 MG CAPSULE PO PRN (23:51)
[2023-02-12] MEDS: SODIUM CHLORIDE FLUSH 0.9% 10 ML SYRINGE IVP SCH ×3 (01:40→18:03)
[2023-02-12] MEDS: ACETAMINOPHEN 325 MG TABLET PO PRN ×3 (01:47→17:10)
[2023-02-12] MEDS: HYDROmorphone 1 MG/ML CARPUJECT IVP PRN ×5 (04:50→22:07)
[2023-02-12] MEDS: ONDANSETRON 4 MG/2 ML VIAL IVP PRN ×4 (04:50→21:53)
[2023-02-12] MEDS: LACTATED RINGERS 1,000 ML IV SCH ×2 (06:38→16:55)
[2023-02-12] MEDS: SUCRALFATE 1 GM/10 ML UDC PO SCH ×4 (06:46→22:03)
[2023-02-12] MEDS: LACTOBACILLUS RHAMNOSUS GG CAPSULE PO SCH (08:18)
[2023-02-12] MEDS: PANTOPRAZOLE 40 MG VIAL IV SCH ×2 (08:18→22:03)
[2023-02-12] MEDS: PYRIDOXINE 100 MG TABLET PO SCH ×2 (08:18→21:57)
[2023-02-12] MEDS: SERTRALINE 50 MG TABLET PO SCH (08:18)
[2023-02-12] MEDS: SIMETHICONE CHEW 80 MG TABLET PO SCH ×4 (08:30→22:06)
[2023-02-12] MEDS ORDERED: METOPROLOL TARTRATE 25 MG TABLET PO PRN (10:40)
[2023-02-12 11:05] LABS: BASOPHILS % (AUTO) 0.5 %; EOSINOPHILS # (AUTO) 0.2 10^3/uL (0.0-0.7); EOSINOPHILS % (AUTO) 2.9 %; HCT - HEMATOCRIT 43.4 % (37.0-47.0); HGB - HEMOGLOBIN 14.2 g/dL (12.0-16.0); LYMPHOCYTES # (AUTO) 2.8 10^3/uL (1.5-3.5); LYMPHOCYTES % (AUTO) 42.5 %; MEAN CORPUSCULAR HEMOGLOBIN 27.8 pg (27.0-31.0); MEAN CORPUSCULAR HGB CONC 32.7 g/dL (32.0-36.0); MEAN CORPUSCULAR VOLUME 85.1 fL (81.0-99.0); MEAN PLATELET VOLUME 9.8 fL (7.9-10.8); MONOCYTES # (AUTO) 0.6 10^3/uL (0.0-1.0); MONOCYTES % (AUTO) 9.1 %; NEUTROPHILS % (AUTO) 44.8 %; PLT - PLATELET COUNT 295 10^3/uL (130-450); RED CELL DISTRIBUTION WIDTH 11.8 % (12.0-15.0); WHITE BLOOD COUNT 6.6 x10^3/uL (4.8-10.8)
[2023-02-12] MEDS: LOPERAMIDE 2 MG CAPSULE PO PRN (11:23)
[2023-02-12 14:26] LABS: ALBUMIN 4.4 g/dL (3.2-5.5); ALBUMIN/GLOBULIN RATIO 1.5 (1.0-2.2); BILIRUBIN,TOTAL 0.4 mg/dL (0.2-1.0); CALCIUM 9.6 mg/dL (8.5-10.3); CREATININE 0.8 mg/dL (0.6-1.3); MAGNESIUM 1.8 mg/dL (1.7-2.3); POTASSIUM 3.6 mmol/L (3.5-4.5); TOTAL PROTEIN 7.3 g/dL (6.4-8.9)
--- NOTE | 2023-02-12 14:56 | CT Report ---
PROCEDURE: ABDOMEN/PELVIS WO INDICATIONS: Persistent N/V, crampy abdominal pain, diarrhea TECHNIQUE: A CT scan of the abdomen and pelvis was performed without the use of intravenous contrast. Images we re recorded and evaluated at appropriate window settings. Reformats: coronal and sagittal. For radiat ion dose reduction, the following was used: automated exposure control, adjustment of mA and/or kV ac cording to patient size. COMPARISON: None. FINDINGS: Image quality: Excellent. Lung bases and heart: Unremarkable. Liver: No solid mass. Gallbladder and biliary tree: There is either milk of calcium present or numerous tiny stones or grav el. No gallbladder wall thickening. Spleen: No splenomegaly. Pancreas: No pancreatic ductal dilation. Adrenals: No adrenal nodule. Kidneys and ureters: No hydronephrosis. No renal cystic lesion which requires follow up. No solid mas s. Bowel and peritoneum: No bowel distension. No pathologic free fluid. Normal appendix. Lymph nodes: No central or retroperitoneal adenopathy. Vessels: No infrarenal aortic aneurysm. PELVIS Reproductive organs: Unremarkable. Bladder: No wall thickness, accounting for underdistention. Pelvic lymph nodes: No pelvic adenopathy by size criteria. Bones: No aggressive osseous abnormality. Other: No significant ventral or inguinal hernia. IMPRESSION: 1. No acute abdominal process noted. 2. Gallbladder milk of calcium versus numerous tiny stones or gravel. Reviewed by: Himanshu Rush MD on 02/12/2023 2:55 PM PST Approved by: Himanshu Rush MD on 02/12/2023 2:55 PM PST Station ID: [id number]
--- NOTE | 2023-02-12 16:40 | PROVIDER PROGRESS NOTE ---
Assessment/Plan - Problem List (1) Intractable vomiting with nausea Assessment/Plan: Etiology is not entirely clear. Her Sapovirus positive stool finding suggests that she had a viral gastroenteritis. It is usually self-limited with symptoms subsiding in under a week. Hers have been lasting for 9 days. Excessive gas was found on imaging which could add to some of the symptoms but not 9/10 pain Plan: When the medicines wear off, her nausea, vomiting and abdominal pain return. She is not ready ready for discharge. She will be admitted to inpatient status Cont clear liquid diet and iv maintenance fluids Repeat CT abd/pelvis today Cont pain medications to include Tylenol and as needed Dilaudid iv Cont Simethicone satnam QID Cont antiemetics with Zofran IV. The telemedicine night doctor also put her on Unisom and Pyridoxine which sometimes helps and nausea and vomiting of . These were ordered as needed. I will make the Unisom scheduled and make the pyridoxine scheduled and BID I will stop Haldol given her bradycardia and risk of QT prolongation. Monitor for developing a surgical abdomen and will consider Gen Surg consult Avoid medications that could increase nausea such as marijuana (2) Diarrhea Conclusion/Plan: Inciting cause is still unclear. 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 Plan: Symptomatic treatment as in #1 and cont iv fluids Imodium prn was started (3) Bradycardia Conclusion/Plan: While sleeping and asymptomatic, the patient's heart rate dropped to 29. This morning I learned she has a history of tachycardia-bradycardia syndrome and wore a Zio patch in the past Her bradycardia is not treating the tachycardia but was ordered for migraine treatment Plan: Will obtain an EKG, Echo and try to contact her carburizer, Dr Villaseñor at [facility] and learn what workup she had and what was found. Will stop the Metoprolol (4) Polycystic ovarian disease Her TSH was checked due to her obesity (BMI 36.9), and TSH came back elevated at 5.65 (upper limit of normal is 5.6) Plan: Cont her hormonal ( control?) meds Will check a free T4 to see if Thyroid meds are indicated (5) Migraines Conclusion/Plan: As per Hx, none now Plan: I will stop her beta-yohana, so that this will not promoting bradycardia She will need to be on different migraine medicine - Current Meds Current Meds: Current Medications Generic Name Dose Route Start Last Admin Trade Name Yoni PRN Reason Stop Dose Admin Acetaminophen 650 mg 02/11/23 06:50 02/12/23 08:18 Acetaminophen 325 Mg Tablet PO 650 mg Q6H PRN Administration Pain or Fever > 38C (100.4F) Hydromorphone HCl 1 mg 02/11/23 12:06 02/12/23 15:14 Hydromorphone 1 Mg/Ml Carpuject IVP 1 mg Q2HR PRN Administration Severe Pain (Level 7-10) Lactated Ringer's 1,000 mls @ 150 mls/hr 02/11/23 07:00 02/12/23 06:38 Lr IV 150 mls/hr .Q6H40M SATNAM Administration Lactobacillus Rhamnosus 1 cap 02/11/23 09:00 02/12/23 08:18 Lactobacillus Rhamnosus Gg Capsule PO 1 cap DAILY SATNAM Administration Loperamide HCl 2 mg 02/11/23 19:06 02/12/23 11:23 Loperamide 2 Mg Capsule PO 2 mg QID PRN Administration Diarrhea Ondansetron HCl 4 mg 02/11/23 12:08 02/12/23 08:59 Ondansetron 4 Mg/2 Ml Vial IVP 4 mg Q4HR PRN Administration Nausea / Vomiting Pantoprazole Sodium 40 mg 02/11/23 21:00 02/12/23 08:18 Pantoprazole 40 Mg Vial IV 40 mg BID SATNAM Administration Patient Own Med ( 1 each 02/11/23 19:00 02/11/23 18:45 Incassia 0.35mg) PO 1 each 1900 SATNAM Administration Sertraline HCl 100 mg 02/12/23 09:00 02/12/23 08:18 Sertraline 50 Mg Tablet PO 100 mg DAILY SATNAM Administration Simethicone 80 mg 02/11/23 13:00 02/12/23 15:13 Simethicone Chew 80 Mg Tablet PO 80 mg 0900,1300,1800,2100 SATNAM Administration Sodium Chloride 10 ml 02/11/23 06:41 02/11/23 23:51 Sodium Chloride Flush 0.9% 10 Ml Syringe IVP 10 ml PRN PRN Administration NEEDED PER PROVIDER ORDERS Sodium Chloride 10 ml 02/11/23 09:00 02/12/23 04:51 Sodium Chloride Flush 0.9% 10 Ml Syringe IVP 10 ml 0100,0900,1700 SATNAM Administration Sucralfate 1 gm 02/11/23 07:00 02/12/23 15:10 Sucralfate 1 Gm/10 Ml Udc PO 1 gm 0700,1100,1600,2200 SATNAM Administration - Lab Result Fish Bone Diagrams: 02/13/23 05:21 02/13/23 05:38 - EKG Results EKG Comparison: Old EKG unavailable EKG Findings: Normal sinus rhythm, normal intervals and axis, and is within normal limits. - Additional Planning My Orders: My Active Orders 02/11/23 19:00 Patient Own Med 1 each PO 1900 02/11/23 19:06 Loperamide [Imodium] 2 mg PO QID PRN 02/11/23 21:00 Pantoprazole [Protonix] 40 mg IV BID 02/12/23 09:00 Sertraline [Zoloft] 100 mg PO DAILY 02/12/23 10:40 Metoprolol Tartrate [Lopressor] 12.5 mg PO DAILY PRN 02/12/23 10:41 Echo Transthoracic Complete [ECHO] Routine 02/12/23 13:48 Telemetry- [RC] Q4HR 02/12/23 21:00 Doxylamine [Unisom] 25 mg PO QPM Pyridoxine [Vitamin B-6] 100 mg PO BID 02/13/23 05:00 BMP - BASIC METABOLIC PANEL [CHEM] DAILYLAB CBC - COMP BLD CT W/AUTO DIFF [HEME] DAILYLAB MAGNESIUM [CHEM] DAILYLAB 02/14/23 05:00 BMP - BASIC METABOLIC PANEL [CHEM] DAILYLAB CBC - COMP BLD CT W/AUTO DIFF [HEME] DAILYLAB 02/15/23 05:00 BMP - BASIC METABOLIC PANEL [CHEM] DAILYLAB CBC - COMP BLD CT W/AUTO DIFF [HEME] DAILYLAB Subjective - Subjective Patient Reports: Abdominal Pain (still reaches 8/10 pain, needs iv Dilaudid), Nausea (Needed anti-emetics all day. Vomited liquid breakfast . No vomiting since this afternoon, 1/2 cup of liquids or dinner is staying down) Objective Vital Signs: Vital Signs - 24 hr 02/11/23 02/12/23 02/12/23 21:18 00:00 07:46 Temperature 37.0 C 36.6 C 36.8 C Heart Rate [ 53 L 70 58 L Brachial] Respiratory 16 16 17 Rate Blood Pressure 105/49 L 121/59 L 122/66 [Right Brachial artery] O2 Saturation 96 94 98 02/12/23 14:11 Temperature 36.6 C Heart Rate [ 59 L Brachial] Respiratory 16 Rate Blood Pressure 116/64 [Right Brachial artery] O2 Saturation 98 Oxygen O2 Source Room air I&O (Last 24 Hrs): Intake and Output Totals x24h 02/10/23 02/11/23 02/12/23 23:59 23:59 23:59 Intake Total 4652.5 1540 Output Total 0 Balance 4652.5 1540 General: Alert, Moderate distress (from abd pain and nausea) HEENT: EOMI, Mucous membr. moist/pink Neck: Supple, No JVD Neuro: Alert, Non Focal Cardiovascular: Regular rate, No murmurs Respiratory: No respiratory distress, Breath sounds nml Abdomen: Normal bowel sounds, Soft, Other (Mild tenderness, mid abd, no rebound or guarding.) Extremities: No clubbing, No edema, No tenderness/swelling - Results Results: Laboratory Results WBC 6.6 x10^3/uL (4.8-10.8) 02/12/23 10:59 RBC 5.10 10^6/uL (4.20-5.40) 02/12/23 10:59 Hgb 14.2 g/dL (12.0-16.0) 02/12/23 10:59 Hct 43.4 % (37.0-47.0) 02/12/23 10:59 MCV 85.1 fL (81.0-99.0) 02/12/23 10:59 MCH 27.8 pg (27.0-31.0) 02/12/23 10:59 MCHC 32.7 g/dL (32.0-36.0) 02/12/23 10:59 RDW 11.8 % (12.0-15.0) L 02/12/23 10:59 Plt Count 295 10^3/uL (130-450) 02/12/23 10:59 MPV 9.8 fL (7.9-10.8) 02/12/23 10:59 Neut # (Auto) 3.0 10^3/uL (1.5-6.6) 02/12/23 10:59 Lymph # (Auto) 2.8 10^3/uL (1.5-3.5) 02/12/23 10:59 [place] # (Auto) 0.6 10^3/uL (0.0-1.0) 02/12/23 10:59 Eos # (Auto) 0.2 10^3/uL (0.0-0.7) 02/12/23 10:59 Baso # (Auto) 0.0 10^3/uL (0.0-0.1) 02/12/23 10:59 Absolute Nucleated RBC 0.00 x10^3/uL 02/12/23 10:59 Nucleated RBC % 0.0 /100WBC 02/12/23 10:59 Sodium 136 mmol/L (135-145) 02/12/23 10:59 Potassium 3.6 mmol/L (3.5-4.5) 02/12/23 10:59 Chloride 102 mmol/L (101-111) 02/12/23 10:59 Carbon Dioxide 28 mmol/L (21-32) 02/12/23 10:59 Anion Gap 6.0 (6-13) 02/12/23 10:59 BUN 4 mg/dL (6-20) L 02/12/23 10:59 Creatinine 0.8 mg/dL (0.6-1.3) 02/12/23 10:59 Estimated GFR (MDRD) 91 (>89) 02/12/23 10:59 Glucose 92 mg/dL (74-104) 02/12/23 10:59 Calcium 9.6 mg/dL (8.5-10.3) 02/12/23 10:59 Magnesium 1.8 mg/dL (1.7-2.3) 02/12/23 10:59 Total Bilirubin 0.4 mg/dL (0.2-1.0) 02/12/23 10:59 AST 17 IU/L (10-42) 02/12/23 10:59 ALT 19 IU/L (10-60) 02/12/23 10:59 Alkaline Phosphatase 57 IU/L (42-121) 02/12/23 10:59 Total Protein 7.3 g/dL (6.4-8.9) 02/12/23 10:59 Albumin 4.4 g/dL (3.2-5.5) 02/12/23 10:59 Globulin 2.9 g/dL (2.1-4.2) 02/12/23 10:59 Albumin/Globulin Ratio 1.5 (1.0-2.2) 02/12/23 10:59 Lipase 57 U/L (11-82) 02/10/23 23:07 TSH 5.65 uIU/mL (0.34-5.60) H 02/11/23 07:10 Free T4 Direct 0.95 ng/dL (0.58-1.64) 02/12/23 10:59 Urine Color YELLOW 02/10/23 22:54 Urine Clarity CLEAR (CLEAR) 02/10/23 22:54 Urine pH 6.5 PH (5.0-7.5) 02/10/23 22:54 Ur Specific [place] 1.010 (1.002-1.030) 02/10/23 22:54 Urine Protein NEGATIVE mg/dL (NEGATIVE) 02/10/23 22:54 Urine Glucose (UA) NEGATIVE mg/dL (NEGATIVE) 02/10/23 22:54 Urine Ketones NEGATIVE mg/dL (NEGATIVE) 02/10/23 22:54 Urine Occult Blood NEGATIVE (NEGATIVE) 02/10/23 22:54 Urine Nitrite NEGATIVE (NEGATIVE) 02/10/23 22:54 Urine Bilirubin NEGATIVE (NEGATIVE) 02/10/23 22:54 Urine Urobilinogen 2 E.U./dL (NORMAL) H 02/10/23 22:54 Ur Leukocyte Esterase NEGATIVE (NEGATIVE) 02/10/23 22:54 Ur Microscopic Review NOT INDICATED 02/10/23 22:54 Urine Culture Comments NOT INDICATED 02/10/23 22:54 Urine HCG, Qual NEGATIVE 02/10/23 22:54
[2023-02-12] MEDS: NORETHINDRONE 0.35 MG PO SCH (19:02)
[2023-02-12] MEDS: DOXYLAMINE 25 MG TABLET PO SCH (21:57)
[2023-02-13] MEDS: HYDROmorphone 1 MG/ML CARPUJECT IVP PRN ×9 (00:19→20:40)
[2023-02-13] MEDS: SODIUM CHLORIDE FLUSH 0.9% 10 ML SYRINGE IVP SCH ×3 (00:19→16:04)
[2023-02-13] MEDS: LACTATED RINGERS 1,000 ML IV SCH ×2 (00:19→07:42)
[2023-02-13] MEDS: ONDANSETRON 4 MG/2 ML VIAL IVP PRN ×6 (01:48→22:34)
[2023-02-13 05:49] LABS: BASOPHILS % (AUTO) 0.6 %; EOSINOPHILS # (AUTO) 0.2 10^3/uL (0.0-0.7); EOSINOPHILS % (AUTO) 2.9 %; HCT - HEMATOCRIT 41.3 % (37.0-47.0); HGB - HEMOGLOBIN 13.6 g/dL (12.0-16.0); LYMPHOCYTES # (AUTO) 2.4 10^3/uL (1.5-3.5); LYMPHOCYTES % (AUTO) 45.1 %; MEAN CORPUSCULAR HEMOGLOBIN 28.6 pg (27.0-31.0); MEAN CORPUSCULAR HGB CONC 32.9 g/dL (32.0-36.0); MEAN CORPUSCULAR VOLUME 86.8 fL (81.0-99.0); MEAN PLATELET VOLUME 9.8 fL (7.9-10.8); MONOCYTES # (AUTO) 0.5 10^3/uL (0.0-1.0); MONOCYTES % (AUTO) 9.7 %; NEUTROPHILS # (AUTO) 2.2 10^3/uL (1.5-6.6); NEUTROPHILS % (AUTO) 41.3 %; PLT - PLATELET COUNT 246 10^3/uL (130-450); RED BLOOD COUNT 4.76 10^6/uL (4.20-5.40); RED CELL DISTRIBUTION WIDTH 11.9 % (12.0-15.0); WHITE BLOOD COUNT 5.3 x10^3/uL (4.8-10.8)
[2023-02-13] MEDS: SUCRALFATE 1 GM/10 ML UDC PO SCH ×4 (05:50→21:16)
[2023-02-13 06:15] LABS: CALCIUM 9.3 mg/dL (8.5-10.3); CREATININE 0.8 mg/dL (0.6-1.3); MAGNESIUM 1.8 mg/dL (1.7-2.3)
[2023-02-13] MEDS: SERTRALINE 50 MG TABLET PO SCH (09:32)
[2023-02-13] MEDS: LACTOBACILLUS RHAMNOSUS GG CAPSULE PO SCH (09:32)
[2023-02-13] MEDS: SIMETHICONE CHEW 80 MG TABLET PO SCH ×4 (09:32→21:16)
[2023-02-13] MEDS: PANTOPRAZOLE 40 MG VIAL IV SCH ×2 (09:32→21:17)
[2023-02-13] MEDS: PYRIDOXINE 100 MG TABLET PO SCH ×2 (09:32→21:17)
[2023-02-13] MEDS: ACETAMINOPHEN 325 MG TABLET PO PRN ×2 (11:53→20:46)
[2023-02-13] MEDS ORDERED: D5NS W/20 MEQ KCL 1,000 ML IV STA (12:26)
[2023-02-13] MEDS ORDERED: MAGNESIUM SULFATE 2 GRAM 2 GM/50 ML BAG IV ONE (12:31)
--- NOTE | 2023-02-13 16:41 | PROVIDER PROGRESS NOTE ---
Assessment/Plan - Problem List (1) Intractable vomiting with nausea Assessment/Plan: Etiology is not entirely clear. Her Sapovirus positive stool finding suggests that she had a viral gastroenteritis. It is usually self-limited with symptoms subsiding in under a week. Hers have been lasting for >[address] abd/pelvis yesterday showed no signif findings except gallbladder sand. I stopped Haldol prn nausea, given the bradycardia we saw and risk of QT prolongation. Excessive gas was found on imaging and today she c/o increased flatulance and burping Today she has c/o twitching of the right arm and right facial muscles which her RN saw, and this could be from getting Unisom, per my discussion with our Pharmacist Sigrid. Today I called and requested a consult with GI, but was told they only do consults for established patients. I spoke to Int Medicine Hospitalist doctor and reviewed the case. Recommendation was to get a lactic acid level and also to try Reglan before meals Mg level 1.8 today (all labs were reviewed) Plan: Cont clear liquid diet and iv maintenance fluids I discussed with her that Unisom could be adding to muscle twitching which would decrease if Unisom is stopped but twitching would not be permanent. She opted to continue with scheduled Unisom to help control nausea Cont pain medications as needed with Dilaudid iv daytime, and will make Dilaudid 1 mg iv satnam q2h between midnite and 0600, and give Toradol at 0100 and 0500 scheduled Cont Simethicone satnam QID Cont prn Zofran IV. Will give a Mg iv Deshaun today. Watch Mg and BMP daily Will obtain a Lactic Acid level and order Reglan iv 30 min before meal tray The gallbladder will need outpatient follow-up. The doctor also thought the most likely cause of her illness is the Sapovirus, which usually has the course of getting better than a second flareup occurs, which is what happened in this case. I explained all this and the doctor's recommendations to the patient. 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 This was also the impression of the IM doctor at that I spoke to today. Plan: Symptomatic treatment as in #1 and cont iv fluids Imodium prn was started (3) Bradycardia Conclusion/Plan: While sleeping and asymptomatic, the patient's heart rate dropped to 29 several nights ago. The next day she told us that she has a history of Tachy-kain syndrome and that she had tachycardia at 140 which was associated with syncope. Possibly that was Asfib, she said. She wore a Zio patch twice in the past Her prn Metoprolol is not treating the tachycardia but was ordered for migraine treatment Her EKG done yesterday was within normal limits Today I contacted the office of her Wireless Team Member, Dr Villaseñor at [facility] and learned that she does not carry a diagnosis of Tachy-Kain or Afib like she told us. Her Zio patch wearing both times did not show any SVT, only PACs and PVCs. Her Echo was normal. Plan: Remain off the Metoprolol (4) Polycystic ovarian disease Her TSH was checked due to her obesity (BMI 36.9), and TSH came back elevated at 5.65 (upper limit of normal is 5.6). Her free T4 was low end of normal range. She told us the TSH is followed by her PCP because it has been elevated in the past. Plan: Cont her hormonal ( control?) med (5) Migraines Conclusion/Plan: As per Hx, none now Plan: Remian off the beta-yohana, so that this will not promoting bradycardia She will need to be on different migraine medicine - Current Meds Current Meds: Current Medications Generic Name Dose Route Start Last Admin Trade Name Freq PRN Reason Stop Dose Admin Acetaminophen 650 mg 02/11/23 06:50 02/13/23 11:53 Acetaminophen 325 Mg Tablet PO 650 mg Q6H PRN Administration Pain or Fever > 38C (100.4F) Doxylamine Succinate 25 mg 02/12/23 21:00 02/12/23 21:57 Doxylamine 25 Mg Tablet PO 25 mg QPM SATNAM Administration Hydromorphone HCl 1 mg 02/11/23 12:06 02/13/23 16:02 Hydromorphone 1 Mg/Ml Carpuject IVP 1 mg Q2HR PRN Administration Severe Pain (Level 7-10) Potassium Chloride/Dextrose/Sod Cl 1,000 mls @ 125 mls/hr 02/13/23 12:26 02/13/23 15:00 D5ns W/20 Meq Kcl IV 02/13/23 20:25 125 mls/hr .Q8H STA Infusion Lactobacillus Rhamnosus 1 cap 02/11/23 09:00 02/13/23 09:32 Lactobacillus Rhamnosus Gg Capsule PO 1 cap DAILY SATNAM Administration Loperamide HCl 2 mg 02/11/23 19:06 02/12/23 11:23 Loperamide 2 Mg Capsule PO 2 mg QID PRN Administration Diarrhea Ondansetron HCl 8 mg 02/12/23 18:13 02/13/23 13:57 Ondansetron 4 Mg/2 Ml Vial IVP 8 mg Q4HR PRN Administration Nausea / Vomiting Pantoprazole Sodium 40 mg 02/11/23 21:00 02/13/23 09:32 Pantoprazole 40 Mg Vial IV 40 mg BID SATNAM Administration Patient Own Med ( 1 each 02/11/23 19:00 02/12/23 19:02 Incassia 0.35mg) PO 1 each 1900 SATNAM Administration Pyridoxine HCl 100 mg 02/12/23 21:00 02/13/23 09:32 Pyridoxine 100 Mg Tablet PO 100 mg BID SATNAM Administration Sertraline HCl 100 mg 02/12/23 09:00 02/13/23 09:32 Sertraline 50 Mg Tablet PO 100 mg DAILY SATNAM Administration Simethicone 80 mg 02/11/23 13:00 02/13/23 14:06 Simethicone Chew 80 Mg Tablet PO 80 mg 0900,1300,1800,2100 SATNAM Administration Sodium Chloride 10 ml 02/11/23 06:41 02/11/23 23:51 Sodium Chloride Flush 0.9% 10 Ml Syringe IVP 10 ml PRN PRN Administration NEEDED PER PROVIDER ORDERS Sodium Chloride 10 ml 02/11/23 09:00 02/13/23 16:04 Sodium Chloride Flush 0.9% 10 Ml Syringe IVP 10 ml 0100,0900,1700 SATNAM Administration Sucralfate 1 gm 02/11/23 07:00 02/13/23 16:00 Sucralfate 1 Gm/10 Ml Udc PO 1 gm 0700,1100,1600,2200 SATNAM Administration - Lab Result Fish Bone Diagrams: 02/13/23 05:21 02/13/23 05:38 - Additional Planning My Orders: My Active Orders 02/12/23 18:13 Ondansetron Inj [Zofran Inj] 8 mg IVP Q4HR PRN 02/12/23 21:00 Doxylamine [Unisom] 25 mg PO QPM Pyridoxine [Vitamin B-6] 100 mg PO BID 02/13/23 12:26 D5ns W/20 Meq KCl 1,000 ml IV 125 mls/hr 02/13/23 16:16 LACTIC ACID, VENOUS [CHEM] Stat 02/13/23 16:30 Metoclopramide Inj [Reglan Inj] 5 mg IVP AC 02/14/23 05:00 BMP - BASIC METABOLIC PANEL [CHEM] DAILYLAB CBC - COMP BLD CT W/AUTO DIFF [HEME] DAILYLAB 02/15/23 05:00 BMP - BASIC METABOLIC PANEL [CHEM] DAILYLAB CBC - COMP BLD CT W/AUTO DIFF [HEME] DAILYLAB Subjective - Subjective Patient Reports: Abdominal Pain, Diarrhea (watery & yellow), Nausea (No vomiting for a day), Other (Feels muscle twitching in R cheek and R upper arm this a.m.) Objective Vital Signs: Vital Signs - 24 hr 02/12/23 02/12/23 02/13/23 17:39 19:51 00:24 Temperature 37.1 C 37.1 C 37 C Heart Rate [ 67 71 74 Brachial] Respiratory 16 18 18 Rate Blood Pressure 131/69 H 139/71 H 119/71 [Right Brachial artery] O2 Saturation 96 94 97 02/13/23 02/13/23 02/13/23 05:36 09:00 12:09 Temperature 37 C 37.0 C Heart Rate [ 76 63 76 Brachial] Respiratory 16 16 Rate Blood Pressure 126/76 133/77 H 139/84 H [Right Brachial artery] O2 Saturation 97 95 02/13/23 16:17 Temperature 36.7 C Heart Rate [ 70 Brachial] Respiratory 20 Rate Blood Pressure 129/80 [Right Brachial artery] O2 Saturation 96 Oxygen O2 Source Room air I&O (Last 24 Hrs): Intake and Output Totals x24h 02/11/23 02/12/23 02/13/23 23:59 23:59 23:59 Intake Total 4652.5 3540 1390 Output Total 0 Balance 4652.5 3540 1390 General: Alert, Moderate distress (from abd pain, gassiness and nausea) HEENT: EOMI, Mucous membr. moist/pink Neck: Supple, No JVD Neuro: Alert, Non Focal Cardiovascular: Regular rate, No murmurs Abdomen: Normal bowel sounds, Other (Distended, mild tenderness, no guarding or rebound) Extremities: No clubbing, No edema, No tenderness/swelling (several old iv sites have bruises) - Results Results: Laboratory Results WBC 5.3 x10^3/uL (4.8-10.8) 02/13/23 05:21 RBC 4.76 10^6/uL (4.20-5.40) 02/13/23 05:21 Hgb 13.6 g/dL (12.0-16.0) 02/13/23 05:21 Hct 41.3 % (37.0-47.0) 02/13/23 05:21 MCV 86.8 fL (81.0-99.0) 02/13/23 05:21 MCH 28.6 pg (27.0-31.0) 02/13/23 05:21 MCHC 32.9 g/dL (32.0-36.0) 02/13/23 05:21 RDW 11.9 % (12.0-15.0) L 02/13/23 05:21 Plt Count 246 10^3/uL (130-450) 02/13/23 05:21 MPV 9.8 fL (7.9-10.8) 02/13/23 05:21 Neut # (Auto) 2.2 10^3/uL (1.5-6.6) 02/13/23 05:21 Lymph # (Auto) 2.4 10^3/uL (1.5-3.5) 02/13/23 05:21 [place] # (Auto) 0.5 10^3/uL (0.0-1.0) 02/13/23 05:21 Eos # (Auto) 0.2 10^3/uL (0.0-0.7) 02/13/23 05:21 Baso # (Auto) 0.0 10^3/uL (0.0-0.1) 02/13/23 05:21 Absolute Nucleated RBC 0.00 x10^3/uL 02/13/23 05:21 Nucleated RBC % 0.0 /100WBC 02/13/23 05:21 Sodium 141 mmol/L (135-145) 02/13/23 05:38 Potassium 4.0 mmol/L (3.5-4.5) 02/13/23 05:38 Chloride 105 mmol/L (101-111) 02/13/23 05:38 Carbon Dioxide 30 mmol/L (21-32) 02/13/23 05:38 Anion Gap 6.0 (6-13) 02/13/23 05:38 BUN 4 mg/dL (6-20) L 02/13/23 05:38 Creatinine 0.8 mg/dL (0.6-1.3) 02/13/23 05:38 Estimated GFR (MDRD) 91 (>89) 02/13/23 05:38 Glucose 79 mg/dL (74-104) 02/13/23 05:38 POC Whole Bld Glucose 100 mg/dL (70 - 100) 02/13/23 10:53 Calcium 9.3 mg/dL (8.5-10.3) 02/13/23 05:38 Magnesium 1.8 mg/dL (1.7-2.3) 02/13/23 05:38 Total Bilirubin 0.4 mg/dL (0.2-1.0) 02/12/23 10:59 AST 17 IU/L (10-42) 02/12/23 10:59 ALT 19 IU/L (10-60) 02/12/23 10:59 Alkaline Phosphatase 57 IU/L (42-121) 02/12/23 10:59 Total Protein 7.3 g/dL (6.4-8.9) 02/12/23 10:59 Albumin 4.4 g/dL (3.2-5.5) 02/12/23 10:59 Globulin 2.9 g/dL (2.1-4.2) 02/12/23 10:59 Albumin/Globulin Ratio 1.5 (1.0-2.2) 02/12/23 10:59 Lipase 57 U/L (11-82) 02/10/23 23:07 TSH 5.65 uIU/mL (0.34-5.60) H 02/11/23 07:10 Free T4 Direct 0.95 ng/dL (0.58-1.64) 02/12/23 10:59 Urine Color YELLOW 02/10/23 22:54 Urine Clarity CLEAR (CLEAR) 02/10/23 22:54 Urine pH 6.5 PH (5.0-7.5) 02/10/23 22:54 Ur Specific [employer] 1.010 (1.002-1.030) 02/10/23 22:54 Urine Protein NEGATIVE mg/dL (NEGATIVE) 02/10/23 22:54 Urine Glucose (UA) NEGATIVE mg/dL (NEGATIVE) 02/10/23 22:54 Urine Ketones NEGATIVE mg/dL (NEGATIVE) 02/10/23 22:54 Urine Occult Blood NEGATIVE (NEGATIVE) 02/10/23 22:54 Urine Nitrite NEGATIVE (NEGATIVE) 02/10/23 22:54 Urine Bilirubin NEGATIVE (NEGATIVE) 02/10/23 22:54 Urine Urobilinogen 2 E.U./dL (NORMAL) H 02/10/23 22:54 Ur Leukocyte Esterase NEGATIVE (NEGATIVE) 02/10/23 22:54 Ur Microscopic Review NOT INDICATED 02/10/23 22:54 Urine Culture Comments NOT INDICATED 02/10/23 22:54 Urine HCG, Qual NEGATIVE 02/10/23 22:54
[2023-02-13] MEDS: METOCLOPRAMIDE 10 MG/2 ML VIAL IVP SCH (17:09)
[2023-02-13] MEDS: NORETHINDRONE 0.35 MG PO SCH (19:34)
[2023-02-13] MEDS: SODIUM CHLORIDE FLUSH 0.9% 10 ML SYRINGE IVP PRN ×2 (21:17→22:34)
[2023-02-13] MEDS: DOXYLAMINE 25 MG TABLET PO SCH (21:17)
[2023-02-14] MEDS: SODIUM CHLORIDE FLUSH 0.9% 10 ML SYRINGE IVP SCH ×3 (00:22→17:19)
[2023-02-14] MEDS: HYDROmorphone 1 MG/ML CARPUJECT IVP PRN ×5 (00:23→22:18)
[2023-02-14] MEDS: KETOROLAC 30 MG/ML VIAL IVP SCH ×2 (01:54→05:50)
[2023-02-14] MEDS: HYDROmorphone 1 MG/ML CARPUJECT IVP SCH ×4 (02:28→11:54)
[2023-02-14] MEDS: ONDANSETRON 4 MG/2 ML VIAL IVP PRN ×3 (02:32→18:11)
[2023-02-14] MEDS: SODIUM CHLORIDE FLUSH 0.9% 10 ML SYRINGE IVP PRN ×4 (05:52→22:18)
[2023-02-14 06:39] LABS: BASOPHILS % (AUTO) 0.8 %; EOSINOPHILS # (AUTO) 0.2 10^3/uL (0.0-0.7); EOSINOPHILS % (AUTO) 3.7 %; HCT - HEMATOCRIT 45.1 % (37.0-47.0); HGB - HEMOGLOBIN 14.7 g/dL (12.0-16.0); LYMPHOCYTES # (AUTO) 2.4 10^3/uL (1.5-3.5); LYMPHOCYTES % (AUTO) 47.4 %; MEAN CORPUSCULAR HEMOGLOBIN 28.6 pg (27.0-31.0); MEAN CORPUSCULAR HGB CONC 32.6 g/dL (32.0-36.0); MEAN CORPUSCULAR VOLUME 87.7 fL (81.0-99.0); MEAN PLATELET VOLUME 10.2 fL (7.9-10.8); MONOCYTES # (AUTO) 0.5 10^3/uL (0.0-1.0); MONOCYTES % (AUTO) 9.6 %; NEUTROPHILS # (AUTO) 1.9 10^3/uL (1.5-6.6); NEUTROPHILS % (AUTO) 38.1 %; PLT - PLATELET COUNT 291 10^3/uL (130-450); RED BLOOD COUNT 5.14 10^6/uL (4.20-5.40); RED CELL DISTRIBUTION WIDTH 11.8 % (12.0-15.0); WHITE BLOOD COUNT 5.1 x10^3/uL (4.8-10.8)
[2023-02-14 06:50] LABS: CALCIUM 9.5 mg/dL (8.5-10.3); CREATININE 0.7 mg/dL (0.6-1.3); POTASSIUM 3.7 mmol/L (3.5-4.5)
[2023-02-14] MEDS: METOCLOPRAMIDE 10 MG/2 ML VIAL IVP SCH ×3 (07:02→16:05)
[2023-02-14] MEDS: SUCRALFATE 1 GM/10 ML UDC PO SCH ×4 (07:02→22:18)
[2023-02-14] MEDS: SIMETHICONE CHEW 80 MG TABLET PO SCH ×4 (08:27→20:42)
[2023-02-14] MEDS: LACTOBACILLUS RHAMNOSUS GG CAPSULE PO SCH (08:27)
[2023-02-14] MEDS: PYRIDOXINE 100 MG TABLET PO SCH ×2 (08:27→20:40)
[2023-02-14] MEDS: SERTRALINE 50 MG TABLET PO SCH (08:28)
[2023-02-14] MEDS: PANTOPRAZOLE 40 MG VIAL IV SCH ×2 (08:28→20:35)
[2023-02-14] MEDS: ACETAMINOPHEN 325 MG TABLET PO PRN ×3 (08:43→19:01)
[2023-02-14] MEDS: D5.45NS W/20 MEQ KCL 1,000 ML IV SCH ×2 (09:57→22:33)
[2023-02-14] MEDS ORDERED: GADOTERATE MEGLUMINE 2.5 MMOL/5 ML VIAL ONE (15:37)
[2023-02-14] MEDS ORDERED: GADOTERATE MEGLUMINE 10 MMOL/20 ML VIAL ONE (15:37)
[2023-02-14] MEDS ORDERED: GADOTERATE MEGLUMINE 10 MMOL/20 ML VIAL IVP ONE (17:35)
--- NOTE | 2023-02-14 18:04 | MRI Report ---
PROCEDURE: MRCP W/WO INDICATIONS: Abd pain and abn GB on US CONTRAST: CLARISCAN 21.4 ML TECHNIQUE: Coronal ultra fast SE through the abdomen, axial 2-D spoiled GE in- and [id number], and breath-hold T2 FSE with fat saturation through the biliary system and pancreas. Oblique coronal and axial thin- slice ultra fast SE, radial thick-slab ultra fast SE centered on the extrahepatic bile ducts. COMPARISON: CT abdomen pelvis without contrast 02/12/2023. FINDINGS: Image quality: Excellent. Gallbladder: Not significantly distended. No stones identified. Biliary tree: No intrahepatic or extrahepatic dilation. No filling defects within the common bile [place] t. Pancreas: No pancreatic ductal dilation. Lung bases and heart: Unremarkable. Liver: No solid mass. Spleen: No splenomegaly. Adrenals: No adrenal nodule. Kidneys and ureters: No hydronephrosis. No renal cystic lesion which requires follow up. No solid mas s. Bowel and peritoneum: No bowel distension. No pathologic free fluid. Normal appendix. Lymph nodes: No central or retroperitoneal adenopathy. Vessels: No infrarenal aortic aneurysm. Bones: No aggressive osseous abnormality. Other: No significant ventral hernia. IMPRESSION: 1. No acute cholecystitis. No free fluid. No gallstones identified. 2. No biliary or pancreatic ductal dilatation. Reviewed by: Gregg Vaz MD on 02/14/2023 6:02 PM PST Approved by: Gregg Vaz MD on 02/14/2023 6:02 PM PST Station ID: [id number]
[2023-02-14] MEDS: KETOROLAC 30 MG/ML VIAL IVP PRN (19:02)
[2023-02-14] MEDS: NORETHINDRONE 0.35 MG PO SCH (19:02)
--- NOTE | 2023-02-14 19:46 | PROVIDER PROGRESS NOTE ---
Assessment/Plan - Problem List (1) Intractable vomiting with nausea Assessment/Plan: Etiology is not entirely clear. Her Sapovirus positive stool finding suggests that she had a viral gastroenteritis. First CT and repeat CT abd/pelvis showed no signif findings except gallbladder sand. I stopped Haldol prn nausea, given the bradycardia we saw and risk of QT prolongation. Excessive gas was found on imaging and Simethicone has helped Today she has vomited again and needs around the clock antiemetics and Dilaudid and Toradol On 02/13 I called and requested a consult with GI, but was told they only do consults for established patients. I spoke to Int Medicine Hospitalist doctor and reviewed the case. Recommendation was to get a lactic acid level and also to try Reglan before meals and to cont supportive care and that doctor thought it may last a few more days Plan: Cont clear liquid diet and iv maintenance fluids Cont antiemetics and pain meds iv I will get MRCP today to more closely eval the GB>> normal MRCP result. 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 This was also the impression of the IM doctor at that I spoke to. Plan: Symptomatic treatment as in #1 and cont iv fluids Imodium prn was started (3) Bradycardia Conclusion/Plan: While sleeping and asymptomatic, the patient's heart rate dropped to 29 several nights ago. The next day she told us that she has a history of Tachy-aria syndrome and that she had tachycardia at 140 which was associated with syncope. Possibly that was Asfib, she said. She wore a Zio patch twice in the past Her prn Metoprolol is not treating the tachycardia but was ordered for migraine treatment Her EKG done was within normal limits On 02/13 I contacted the office of her Manager Of Compensation, Dr Villaseñor at [facility] and learned that she does not carry a diagnosis of Tachy-Aria or Afib like she told us. Her Zio patch wearing both times did not show any SVT, only PACs and PVCs. Her Echo was normal. Plan: The prn Metoprolol was stopped (4) Polycystic ovarian disease Her TSH was checked due to her obesity (BMI 36.9), and TSH came back elevated at 5.65 (upper limit of normal is 5.6). Her free T4 was low end of normal range. She told us the TSH is followed by her PCP because it has been elevated in the past. Plan: Cont her hormonal ( control?) med (5) Migraines Conclusion/Plan: As per Hx, none now Plan: Remain off the beta-yohana, so that this will not promoting bradycardia She will need to be on different migraine medicine - Current Meds Current Meds: Current Medications Generic Name Dose Route Start Last Admin Trade Name Freq PRN Reason Stop Dose Admin Acetaminophen 650 mg 02/11/23 06:50 02/14/23 19:01 Acetaminophen 325 Mg Tablet PO 650 mg Q6H PRN Administration Pain or Fever > 38C (100.4F) Doxylamine Succinate 25 mg 02/12/23 21:00 02/13/23 21:17 Doxylamine 25 Mg Tablet PO 25 mg QPM HUMBERTO Administration Hydromorphone HCl 1 mg 02/11/23 12:06 02/14/23 18:12 Hydromorphone 1 Mg/Ml Carpuject IVP 1 mg Q2HR PRN Administration Severe Pain (Level 7-10) Hydromorphone HCl 1 mg 02/14/23 12:00 02/14/23 11:54 Hydromorphone 1 Mg/Ml Carpuject IVP 1 mg 1200 HUMBERTO Administration Hydromorphone HCl 1 mg 02/14/23 02:00 02/14/23 02:28 Hydromorphone 1 Mg/Ml Carpuject IVP 1 mg 0200 HUMBERTO Administration Hydromorphone HCl 1 mg 02/14/23 04:00 02/14/23 05:00 Hydromorphone 1 Mg/Ml Carpuject IVP 1 mg 0400 HUMBERTO Administration Hydromorphone HCl 1 mg 02/14/23 06:00 02/14/23 06:58 Hydromorphone 1 Mg/Ml Carpuject IVP 1 mg 0600 HUMBERTO Administration Potassium Chloride/Dextrose/Sod Cl 1,000 mls @ 100 mls/hr 02/14/23 10:00 02/14/23 18:48 D5.45ns W/20 Meq Kcl IV 100 mls/hr .Q10H HUMBERTO Infusion Ketorolac Tromethamine 30 mg 02/14/23 01:00 02/14/23 05:50 Ketorolac 30 Mg/Ml Vial IVP 02/19/23 00:59 30 mg 0100,0500 HUMBERTO Administration Ketorolac Tromethamine 30 mg 02/14/23 18:41 02/14/23 19:02 Ketorolac 30 Mg/Ml Vial IVP 02/19/23 18:40 30 mg Q6HR PRN Administration Severe Pain (Level 7-10) Lactobacillus Rhamnosus 1 cap 02/11/23 09:00 02/14/23 08:27 Lactobacillus Rhamnosus Gg Capsule PO 1 cap DAILY HUMBERTO Administration Loperamide HCl 2 mg 02/11/23 19:06 02/12/23 11:23 Loperamide 2 Mg Capsule PO 2 mg QID PRN Administration Diarrhea Metoclopramide HCl 5 mg 02/13/23 16:30 02/14/23 16:05 Metoclopramide 10 Mg/2 Ml Vial IVP 5 mg AC HUMBERTO Administration Ondansetron HCl 8 mg 02/12/23 18:13 02/14/23 18:11 Ondansetron 4 Mg/2 Ml Vial IVP 8 mg Q4HR PRN Administration Nausea / Vomiting Pantoprazole Sodium 40 mg 02/11/23 21:00 02/14/23 08:28 Pantoprazole 40 Mg Vial IV 40 mg BID HUMBERTO Administration Patient Own Med ( 1 each 02/11/23 19:00 02/14/23 19:02 Incassia 0.35mg) PO 1 each 1900 HUMBERTO Administration Pyridoxine HCl 100 mg 02/12/23 21:00 02/14/23 08:27 Pyridoxine 100 Mg Tablet PO 100 mg BID HUMBERTO Administration Sertraline HCl 100 mg 02/12/23 09:00 02/14/23 08:28 Sertraline 50 Mg Tablet PO 100 mg DAILY HUMBERTO Administration Simethicone 80 mg 02/11/23 13:00 02/14/23 17:19 Simethicone Chew 80 Mg Tablet PO 80 mg 0900,1300,1800,2100 HUMBERTO Administration Sodium Chloride 10 ml 02/11/23 06:41 02/14/23 09:57 Sodium Chloride Flush 0.9% 10 Ml Syringe IVP 10 ml PRN PRN Administration NEEDED PER PROVIDER ORDERS Sodium Chloride 10 ml 02/11/23 09:00 02/14/23 17:19 Sodium Chloride Flush 0.9% 10 Ml Syringe IVP 10 ml 0100,0900,1700 HUMBERTO Administration Sucralfate 1 gm 02/11/23 07:00 02/14/23 16:04 Sucralfate 1 Gm/10 Ml Udc PO 1 gm 0700,1100,1600,2200 HUMBERTO Administration - Lab Result Fish Bone Diagrams: 02/14/23 05:51 02/14/23 05:51 - Additional Planning My Orders: My Active Orders 02/14/23 01:00 Ketorolac Inj (30Mg) [Toradol Inj (30Mg)] 30 mg IVP 0100,0500 02/14/23 02:00 HYDROmorphone 1MG CARP [Dilaudid 1Mg Carp] 1 mg IVP 0200 02/14/23 04:00 HYDROmorphone 1MG CARP [Dilaudid 1Mg Carp] 1 mg IVP 0400 02/14/23 06:00 HYDROmorphone 1MG CARP [Dilaudid 1Mg Carp] 1 mg IVP 0600 02/14/23 10:00 D5.45ns W/20 Meq KCl 1,000 ml IV 100 mls/hr 02/14/23 12:00 HYDROmorphone 1MG CARP [Dilaudid 1Mg Carp] 1 mg IVP 1200 02/14/23 18:41 Ketorolac Inj (30Mg) [Toradol Inj (30Mg)] 30 mg IVP Q6HR PRN 02/15/23 05:00 BMP - BASIC METABOLIC PANEL [CHEM] DAILYLAB CBC - COMP BLD CT W/AUTO DIFF [HEME] DAILYLAB MAGNESIUM [CHEM] DAILYLAB Subjective - Subjective Patient Reports: Abdominal Pain, Nausea (Her nausea comes back if she does not get IV antiemetics. She vomited twice today after breakfast. (Had not vomited for the past 2 days already)) Objective Vital Signs: Vital Signs - 24 hr 02/13/23 02/14/23 02/14/23 19:45 00:00 05:00 Temperature 36.6 C 36.8 C 36.9 C Heart Rate [ 61 57 L 67 Brachial] Respiratory 16 14 16 Rate Blood Pressure 112/51 L 125/84 H [Left Brachial artery] Blood Pressure 130/61 [Right Brachial artery] O2 Saturation 98 97 99 02/14/23 02/14/23 02/14/23 08:19 12:15 17:00 Temperature 36.9 C 36.7 C 36.5 C Heart Rate [ 55 L 82 78 Brachial] Respiratory 14 16 16 Rate Blood Pressure 125/76 131/86 H 144/85 H [Left Brachial artery] Blood Pressure [Right Brachial artery] O2 Saturation 96 96 95 Oxygen O2 Source Room air I&O (Last 24 Hrs): Intake and Output Totals x24h 02/12/23 02/13/23 02/14/23 23:59 23:59 23:59 Intake Total 3540 3617.5 945 Output Total 0 70 150 Balance 3540 3547.5 795 General: Moderate distress (She is rolled up in the left lateral decubitus position, has abdominal pain and nausea) HEENT: Mucous membr. moist/pink Neck: Supple Neuro: Alert, Non Focal Cardiovascular: Regular rate Respiratory: No respiratory distress Abdomen: Normal bowel sounds, Other (mild tenderness, no rebound, diminished bowel sounds) Extremities: No clubbing, No edema, No tenderness/swelling - Results Results: Laboratory Results WBC 5.1 x10^3/uL (4.8-10.8) 02/14/23 05:51 RBC 5.14 10^6/uL (4.20-5.40) 02/14/23 05:51 Hgb 14.7 g/dL (12.0-16.0) 02/14/23 05:51 Hct 45.1 % (37.0-47.0) 02/14/23 05:51 MCV 87.7 fL (81.0-99.0) 02/14/23 05:51 MCH 28.6 pg (27.0-31.0) 02/14/23 05:51 MCHC 32.6 g/dL (32.0-36.0) 02/14/23 05:51 RDW 11.8 % (12.0-15.0) L 02/14/23 05:51 Plt Count 291 10^3/uL (130-450) 02/14/23 05:51 MPV 10.2 fL (7.9-10.8) 02/14/23 05:51 Neut # (Auto) 1.9 10^3/uL (1.5-6.6) 02/14/23 05:51 Lymph # (Auto) 2.4 10^3/uL (1.5-3.5) 02/14/23 05:51 [place] # (Auto) 0.5 10^3/uL (0.0-1.0) 02/14/23 05:51 Eos # (Auto) 0.2 10^3/uL (0.0-0.7) 02/14/23 05:51 Baso # (Auto) 0.0 10^3/uL (0.0-0.1) 02/14/23 05:51 Absolute Nucleated RBC 0.00 x10^3/uL 02/14/23 05:51 Nucleated RBC % 0.0 /100WBC 02/14/23 05:51 Sodium 140 mmol/L (135-145) 02/14/23 05:51 Potassium 3.7 mmol/L (3.5-4.5) 02/14/23 05:51 Chloride 105 mmol/L (101-111) 02/14/23 05:51 Carbon Dioxide 28 mmol/L (21-32) 02/14/23 05:51 Anion Gap 7.0 (6-13) 02/14/23 05:51 BUN 4 mg/dL (6-20) L 02/14/23 05:51 Creatinine 0.7 mg/dL (0.6-1.3) 02/14/23 05:51 Estimated GFR (MDRD) 106 (>89) 02/14/23 05:51 Glucose 74 mg/dL (74-104) 02/14/23 05:51 POC Whole Bld Glucose 100 mg/dL (70 - 100) 02/13/23 10:53 Lactic Acid 0.6 mmol/L (0.5-2.2) 02/13/23 16:16 Calcium 9.5 mg/dL (8.5-10.3) 02/14/23 05:51 Magnesium 1.8 mg/dL (1.7-2.3) 02/13/23 05:38 Total Bilirubin 0.4 mg/dL (0.2-1.0) 02/12/23 10:59 AST 17 IU/L (10-42) 02/12/23 10:59 ALT 19 IU/L (10-60) 02/12/23 10:59 Alkaline Phosphatase 57 IU/L (42-121) 02/12/23 10:59 Total Protein 7.3 g/dL (6.4-8.9) 02/12/23 10:59 Albumin 4.4 g/dL (3.2-5.5) 02/12/23 10:59 Globulin 2.9 g/dL (2.1-4.2) 02/12/23 10:59 Albumin/Globulin Ratio 1.5 (1.0-2.2) 02/12/23 10:59 Lipase 57 U/L (11-82) 02/10/23 23:07 TSH 5.65 uIU/mL (0.34-5.60) H 02/11/23 07:10 Free T4 Direct 0.95 ng/dL (0.58-1.64) 02/12/23 10:59 Urine Color YELLOW 02/10/23 22:54 Urine Clarity CLEAR (CLEAR) 02/10/23 22:54 Urine pH 6.5 PH (5.0-7.5) 02/10/23 22:54 Ur Specific [place] 1.010 (1.002-1.030) 02/10/23 22:54 Urine Protein NEGATIVE mg/dL (NEGATIVE) 02/10/23 22:54 Urine Glucose (UA) NEGATIVE mg/dL (NEGATIVE) 02/10/23 22:54 Urine Ketones NEGATIVE mg/dL (NEGATIVE) 02/10/23 22:54 Urine Occult Blood NEGATIVE (NEGATIVE) 02/10/23 22:54 Urine Nitrite NEGATIVE (NEGATIVE) 02/10/23 22:54 Urine Bilirubin NEGATIVE (NEGATIVE) 02/10/23 22:54 Urine Urobilinogen 2 E.U./dL (NORMAL) H 02/10/23 22:54 Ur Leukocyte Esterase NEGATIVE (NEGATIVE) 02/10/23 22:54 Ur Microscopic Review NOT INDICATED 02/10/23 22:54 Urine Culture Comments NOT INDICATED 02/10/23 22:54 Urine HCG, Qual NEGATIVE 02/10/23 22:54
[2023-02-14] MEDS: DOXYLAMINE 25 MG TABLET PO SCH (20:40)
[2023-02-15] MEDS: SODIUM CHLORIDE FLUSH 0.9% 10 ML SYRINGE IVP SCH ×3 (00:50→18:00)
[2023-02-15] MEDS: KETOROLAC 30 MG/ML VIAL IVP SCH ×3 (00:54→08:23)
[2023-02-15] MEDS: SODIUM CHLORIDE FLUSH 0.9% 10 ML SYRINGE IVP PRN ×6 (00:55→22:33)
[2023-02-15] MEDS: HYDROmorphone 1 MG/ML CARPUJECT IVP SCH ×4 (01:58→12:37)
[2023-02-15] MEDS: ONDANSETRON 4 MG/2 ML VIAL IVP PRN ×4 (04:04→19:31)
[2023-02-15 06:02] LABS: BASOPHILS % (AUTO) 0.6 %; EOSINOPHILS # (AUTO) 0.2 10^3/uL (0.0-0.7); EOSINOPHILS % (AUTO) 3.7 %; HCT - HEMATOCRIT 41.5 % (37.0-47.0); HGB - HEMOGLOBIN 13.7 g/dL (12.0-16.0); LYMPHOCYTES % (AUTO) 30.5 %; MEAN CORPUSCULAR HEMOGLOBIN 28.1 pg (27.0-31.0); MEAN PLATELET VOLUME 9.9 fL (7.9-10.8); MONOCYTES # (AUTO) 0.7 10^3/uL (0.0-1.0); MONOCYTES % (AUTO) 11.5 %; NEUTROPHILS # (AUTO) 3.5 10^3/uL (1.5-6.6); NEUTROPHILS % (AUTO) 53.5 %; PLT - PLATELET COUNT 289 10^3/uL (130-450); RED BLOOD COUNT 4.88 10^6/uL (4.20-5.40); RED CELL DISTRIBUTION WIDTH 11.6 % (12.0-15.0); WHITE BLOOD COUNT 6.5 x10^3/uL (4.8-10.8)
[2023-02-15 06:27] LABS: CALCIUM 9.1 mg/dL (8.5-10.3); CREATININE 0.9 mg/dL (0.6-1.3); MAGNESIUM 1.8 mg/dL (1.7-2.3); POTASSIUM 3.8 mmol/L (3.5-4.5)
[2023-02-15] MEDS: SUCRALFATE 1 GM/10 ML UDC PO SCH ×4 (06:29→21:24)
[2023-02-15] MEDS: METOCLOPRAMIDE 10 MG/2 ML VIAL IVP SCH ×3 (07:25→16:32)
[2023-02-15] MEDS: SERTRALINE 50 MG TABLET PO SCH (08:21)
[2023-02-15] MEDS: PANTOPRAZOLE 40 MG VIAL IV SCH ×2 (08:21→20:50)
[2023-02-15] MEDS: PYRIDOXINE 100 MG TABLET PO SCH ×2 (08:21→21:22)
[2023-02-15] MEDS: LACTOBACILLUS RHAMNOSUS GG CAPSULE PO SCH (08:22)
[2023-02-15] MEDS: D5.45NS W/20 MEQ KCL 1,000 ML IV SCH ×2 (10:33→20:48)
[2023-02-15] MEDS: SIMETHICONE CHEW 80 MG TABLET PO SCH ×4 (10:35→20:50)
[2023-02-15] MEDS: ACETAMINOPHEN 325 MG TABLET PO PRN (10:36)
--- NOTE | 2023-02-15 10:58 | PROVIDER PROGRESS NOTE ---
Assessment/Plan - Problem List (1) Gastroenteritis due to sapovirus Assessment/Plan: Plan: I asked for Surg consult today from Dr Gilmore, and we spoke about this patient. He feels she does not have a surgical abdomen. As per literature review, the virus can shed for 6 weeks, so she needs to be in contact infectious isolation, which had not been advised by our Infection diesel dinkey operator or by the [facility] doctor I spoke to several days ago. Possibly her Sapovirus result needs to be reported to [facility][NOTE 3]. I will contact our Infection diesel dinkey operator, Kathrine Marcial (but today is Sat and she is not here on weekends) (2) Intractable vomiting with nausea Assessment/Plan: Etiology is not entirely clear. Her only abn finding is her Sapovirus positive stool finding suggests a viral gastroenteritis. First CT and repeat CT abd/pelvis showed no signif findings except gallbladder sand. MRCP done 02/14 showed normal result. I stopped Haldol prn nausea, given the bradycardia we saw and risk of QT prolongation. Excessive gas was found on initial imaging and Simethicone has helped She vomited last on 02/14 and needs around the clock antiemetics and Dilaudid and Toradol On 02/13 I called and requested a consult with GI, but was told they only do consults for established patients. I spoke to Int Medicine Hospitalist doctor and reviewed the case. Recommendation was to get a lactic acid level which was normal and also to use Reglan before meals and to cont supportive care and that doctor thought it may last a few more days. She is on Day #14 with symptoms. 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 This was also the impression of the IM doctor at that I spoke to. Plan: Recheck daphne for C. diff and a repeat stool cx, since her diarrhea has changed Symptomatic treatment as in #2 and cont iv fluids Imodium prn was started (4) Bradycardia Conclusion/Plan: While sleeping and asymptomatic, the patient's heart rate dropped to 29 several nights ago. The next day she told us that she has a history of Tachy-kain syndrome and that she had tachycardia at 140 which was associated with syncope. Possibly that was Asfib, she said. She wore a Zio patch twice in the past Her prn Metoprolol is not treating the tachycardia but was ordered for migraine treatment Her EKG done was within normal limits On 02/13 I contacted the office of her Order Booker, Dr Villaseñor at [facility] and learned that she does not carry a diagnosis of Tachy-Kain or Afib like she told us. Her Zio patch wearing both times did not show any SVT, only PACs and PVCs. Her Echo was normal. Plan: The prn Metoprolol was stopped (5) Polycystic ovarian disease Her TSH was checked due to her obesity (BMI 36.9), and TSH came back elevated at 5.65 (upper limit of normal is 5.6). Her free T4 was low end of normal range. She told us the TSH is followed by her PCP because it has been elevated in the past. Plan: Cont her hormonal ( control?) med (6) Migraines Conclusion/Plan: As per Hx, none now Plan: Remain off the beta-yohana, so that this will not promoting bradycardia She will need to be on different migraine medicine - Current Meds Current Meds: Current Medications Generic Name Dose Route Start Last Admin Trade Name Freq PRN Reason Stop Dose Admin Acetaminophen 650 mg 02/11/23 06:50 02/15/23 10:36 Acetaminophen 325 Mg Tablet PO 650 mg Q6H PRN Administration Pain or Fever > 38C (100.4F) Doxylamine Succinate 25 mg 02/12/23 21:00 02/14/23 20:40 Doxylamine 25 Mg Tablet PO 25 mg QPM HUMBERTO Administration Hydromorphone HCl 1 mg 02/11/23 12:06 02/14/23 22:18 Hydromorphone 1 Mg/Ml Carpuject IVP 1 mg Q2HR PRN Administration Severe Pain (Level 7-10) Hydromorphone HCl 1 mg 02/14/23 12:00 02/14/23 11:54 Hydromorphone 1 Mg/Ml Carpuject IVP 1 mg 1200 HUMBERTO Administration Hydromorphone HCl 1 mg 02/14/23 02:00 02/15/23 01:58 Hydromorphone 1 Mg/Ml Carpuject IVP 1 mg 0200 HUMBERTO Administration Hydromorphone HCl 1 mg 02/14/23 04:00 02/15/23 03:59 Hydromorphone 1 Mg/Ml Carpuject IVP 1 mg 0400 HUMBERTO Administration Hydromorphone HCl 1 mg 02/14/23 06:00 02/15/23 05:53 Hydromorphone 1 Mg/Ml Carpuject IVP 1 mg 0600 HUMBERTO Administration Potassium Chloride/Dextrose/Sod Cl 1,000 mls @ 100 mls/hr 02/14/23 10:00 02/15/23 10:33 D5.45ns W/20 Meq Kcl IV 100 mls/hr .Q10H HUMBERTO Administration Ketorolac Tromethamine 30 mg 02/14/23 01:00 02/15/23 08:23 Ketorolac 30 Mg/Ml Vial IVP 02/19/23 00:59 30 mg 0100,0500 HUMBERTO Administration Ketorolac Tromethamine 30 mg 02/14/23 18:41 02/14/23 19:02 Ketorolac 30 Mg/Ml Vial IVP 02/19/23 18:40 30 mg Q6HR PRN Administration Severe Pain (Level 7-10) Lactobacillus Rhamnosus 1 cap 02/11/23 09:00 02/15/23 08:22 Lactobacillus Rhamnosus Gg Capsule PO 1 cap DAILY HUMBERTO Administration Loperamide HCl 2 mg 02/11/23 19:06 02/12/23 11:23 Loperamide 2 Mg Capsule PO 2 mg QID PRN Administration Diarrhea Metoclopramide HCl 5 mg 02/13/23 16:30 02/15/23 07:25 Metoclopramide 10 Mg/2 Ml Vial IVP 5 mg AC HUMBERTO Administration Ondansetron HCl 8 mg 02/12/23 18:13 02/15/23 08:22 Ondansetron 4 Mg/2 Ml Vial IVP 8 mg Q4HR PRN Administration Nausea / Vomiting Pantoprazole Sodium 40 mg 02/11/23 21:00 02/15/23 08:21 Pantoprazole 40 Mg Vial IV 40 mg BID HUMBERTO Administration Patient Own Med ( 1 each 02/11/23 19:00 02/14/23 19:02 Incassia 0.35mg) PO 1 each 1900 HUMBERTO Administration Pyridoxine HCl 100 mg 02/12/23 21:00 02/15/23 08:21 Pyridoxine 100 Mg Tablet PO 100 mg BID HUMBERTO Administration Sertraline HCl 100 mg 02/12/23 09:00 02/15/23 08:21 Sertraline 50 Mg Tablet PO 100 mg DAILY HUMBERTO Administration Simethicone 80 mg 02/11/23 13:00 02/15/23 10:35 Simethicone Chew 80 Mg Tablet PO 80 mg 0900,1300,1800,2100 HUMBERTO Administration Sodium Chloride 10 ml 02/11/23 06:41 02/15/23 09:10 Sodium Chloride Flush 0.9% 10 Ml Syringe IVP 10 ml PRN PRN Administration NEEDED PER PROVIDER ORDERS Sodium Chloride 10 ml 02/11/23 09:00 02/15/23 08:22 Sodium Chloride Flush 0.9% 10 Ml Syringe IVP Not Given 0100,0900,1700 HUMBERTO Sucralfate 1 gm 02/11/23 07:00 02/15/23 06:29 Sucralfate 1 Gm/10 Ml Udc PO 1 gm 0700,1100,1600,2200 HUMBERTO Administration - Lab Result Fish Bone Diagrams: 02/15/23 05:43 02/15/23 05:43 - Additional Planning My Orders: My Active Orders 02/14/23 10:00 D5.45ns W/20 Meq KCl 1,000 ml IV 100 mls/hr 02/14/23 12:00 HYDROmorphone 1MG CARP [Dilaudid 1Mg Carp] 1 mg IVP 1200 02/14/23 18:41 Ketorolac Inj (30Mg) [Toradol Inj (30Mg)] 30 mg IVP Q6HR PRN 02/15/23 Consult [General Surgery Consult] [CONS] Routine 02/15/23 10:57 Isolation [Infection Precautions] [RC] QSHIFT Subjective - Subjective Patient Reports: Feeling Better (Only had to ask for iv Dilaudid once in the past 12 hours. No vomiting today.), Diarrhea (Increased diarrhea which is now green and liquid) Objective Vital Signs: Vital Signs - 24 hr 02/14/23 02/14/23 02/14/23 12:15 17:00 20:30 Temperature 36.7 C 36.5 C 37.0 C Heart Rate [ 82 78 76 Brachial] Respiratory 16 16 16 Rate Blood Pressure 131/86 H 144/85 H 107/63 [Left Brachial artery] O2 Saturation 96 95 98 02/15/23 02/15/2323 00:55 04:40 08:23 Temperature 36.7 C 36.7 C 36.9 C Heart Rate [ 66 64 86 Brachial] Respiratory 18 16 16 Rate Blood Pressure 122/69 114/64 117/66 [Left Brachial artery] O2 Saturation 99 97 96 Oxygen O2 Source Room air I&O (Last 24 Hrs): Intake and Output Totals x24h 02/13/23 02/14/23 02/15/23 23:59 23:59 23:59 Intake Total 3617.5 1320 1120 Output Total 70 150 Balance 3547.5 1170 1120 General: Alert, Oriented x3 HEENT: Mucous membr. moist/pink Neck: Supple Neuro: Alert, Non Focal Cardiovascular: Regular rate Respiratory: No respiratory distress Abdomen: Soft Extremities: No clubbing, No edema, No tenderness/swelling - Results Results: Laboratory Results WBC 6.5 x10^3/uL (4.8-10.8) 02/15/23 05:43 RBC 4.88 10^6/uL (4.20-5.40) 02/15/23 05:43 Hgb 13.7 g/dL (12.0-16.0) 02/15/23 05:43 Hct 41.5 % (37.0-47.0) 02/15/23 05:43 MCV 85.0 fL (81.0-99.0) 02/15/23 05:43 MCH 28.1 pg (27.0-31.0) 02/15/23 05:43 MCHC 33.0 g/dL (32.0-36.0) 02/15/23 05:43 RDW 11.6 % (12.0-15.0) L 02/15/23 05:43 Plt Count 289 10^3/uL (130-450) 02/15/23 05:43 MPV 9.9 fL (7.9-10.8) 02/15/23 05:43 Neut # (Auto) 3.5 10^3/uL (1.5-6.6) 02/15/23 05:43 Lymph # (Auto) 2.0 10^3/uL (1.5-3.5) 02/15/23 05:43 [place] # (Auto) 0.7 10^3/uL (0.0-1.0) 02/15/23 05:43 Eos # (Auto) 0.2 10^3/uL (0.0-0.7) 02/15/23 05:43 Baso # (Auto) 0.0 10^3/uL (0.0-0.1) 02/15/23 05:43 Absolute Nucleated RBC 0.00 x10^3/uL 02/15/23 05:43 Nucleated RBC % 0.0 /100WBC 02/15/23 05:43 Sodium 138 mmol/L (135-145) 02/15/23 05:43 Potassium 3.8 mmol/L (3.5-4.5) 02/15/23 05:43 Chloride 104 mmol/L (101-111) 02/15/23 05:43 Carbon Dioxide 27 mmol/L (21-32) 02/15/23 05:43 Anion Gap 7.0 (6-13) 02/15/23 05:43 BUN 6 mg/dL (6-20) 02/15/23 05:43 Creatinine 0.9 mg/dL (0.6-1.3) 02/15/23 05:43 Estimated GFR (MDRD) 79 (>89) L 02/15/23 05:43 Glucose 99 mg/dL (74-104) 02/15/23 05:43 POC Whole Bld Glucose 100 mg/dL (70 - 100) 02/13/23 10:53 Lactic Acid 0.6 mmol/L (0.5-2.2) 02/13/23 16:16 Calcium 9.1 mg/dL (8.5-10.3) 02/15/23 05:43 Phosphorus 4.5 mg/dL (2.5-5.0) 02/15/23 05:43 Magnesium 1.8 mg/dL (1.7-2.3) 02/15/23 05:43 Total Bilirubin 0.4 mg/dL (0.2-1.0) 02/12/23 10:59 AST 17 IU/L (10-42) 02/12/23 10:59 ALT 19 IU/L (10-60) 02/12/23 10:59 Alkaline Phosphatase 57 IU/L (42-121) 02/12/23 10:59 Total Protein 7.3 g/dL (6.4-8.9) 02/12/23 10:59 Albumin 4.4 g/dL (3.2-5.5) 02/12/23 10:59 Globulin 2.9 g/dL (2.1-4.2) 02/12/23 10:59 Albumin/Globulin Ratio 1.5 (1.0-2.2) 02/12/23 10:59 Lipase 57 U/L (11-82) 02/10/23 23:07 TSH 5.65 uIU/mL (0.34-5.60) H 02/11/23 07:10 Free T4 Direct 0.95 ng/dL (0.58-1.64) 02/12/23 10:59 Urine Color YELLOW 02/10/23 22:54 Urine Clarity CLEAR (CLEAR) 02/10/23 22:54 Urine pH 6.5 PH (5.0-7.5) 02/10/23 22:54 Ur Specific [place] 1.010 (1.002-1.030) 02/10/23 22:54 Urine Protein NEGATIVE mg/dL (NEGATIVE) 02/10/23 22:54 Urine Glucose (UA) NEGATIVE mg/dL (NEGATIVE) 02/10/23 22:54 Urine Ketones NEGATIVE mg/dL (NEGATIVE) 02/10/23 22:54 Urine Occult Blood NEGATIVE (NEGATIVE) 02/10/23 22:54 Urine Nitrite NEGATIVE (NEGATIVE) 02/10/23 22:54 Urine Bilirubin NEGATIVE (NEGATIVE) 02/10/23 22:54 Urine Urobilinogen 2 E.U./dL (NORMAL) H 02/10/23 22:54 Ur Leukocyte Esterase NEGATIVE (NEGATIVE) 02/10/23 22:54 Ur Microscopic Review NOT INDICATED 02/10/23 22:54 Urine Culture Comments NOT INDICATED 02/10/23 22:54 Urine HCG, Qual NEGATIVE 02/10/23 22:54
--- NOTE | 2023-02-15 11:25 | CONSULTATION NOTE ---
Surgery Consult - Admit Date Hospital Admission Date: 02/12/23 - Consult Date Consult Date: 02/15/23 Requesting Provider: Dr. Faith Yu - Chief Complaint Chief Complaint: Protracted nausea, vomiting and diarrhea - Home Meds/Allergies Home Medications: Patient History Medication Instructions Recorded Confirmed Metoprolol Tartrate [Lopressor] 12.5 mg PO DAILY PRN 01/16/23 02/11/23 Norethindrone 0.35 mg PO DAILY 02/11/23 02/11/23 Promethazine [Phenergan] 25 mg PO Q6H PRN 02/11/23 02/11/23 Sertraline HCl 100 mg PO DAILY 02/11/23 02/11/23 Allergies/Adverse Reactions: Allergies Allergy/AdvReac Type Severity Reaction Status Date / Time sumatriptan Allergy Anaphylaxis Verified 02/10/23 22:49 promethazine [From Phenergan] AdvReac Anxiety Verified 02/11/23 08:00 - Vital Signs Vital Signs: Last Vital Signs Temp 36.9 C 02/15/23 08:23 Pulse 86 02/15/23 08:23 Resp 16 02/15/23 08:23 BP 117/66 02/15/23 08:23 Pulse Ox 96 02/15/23 08:23 O2 Flow Rate Intake & Output: Intake & Output 02/12/23 02/13/23 02/14/23 02/15/23 23:59 23:59 23:59 23:59 Intake Total 3540 3617.5 1320 1120 Output Total 0 70 150 Balance 3540 3547.5 1170 1120 - Lab Results Result Diagrams: 02/15/23 05:43 02/15/23 05:43 - Consultation Note Consultation Note: I was called on consultation by Dr. Faith Yu to evaluate this patient for protracted nausea and vomiting and diarrhea. An extensive workup has already been completed and it has been shown that she has been infected with Sapovirus. Before I go much further into the description of the viral infection let me state that a chart review shows that the patient's labs are normal, her radiographic studies are normal and nothing is seen to suggest that surgical intervention will be helpful. Rather, Dr. Yu and myself put her heads together and I did a "deep dive" into sapoviruses. In summary this single stranded RNA infection causes disease in humans of all ages both sporadically and with outbreaks. These cause acute gastroenteritis with the associated symptoms. The transmission appears to be fecal oral. Patients are described as infectious for weeks (even after resolution of the symptoms). The vomitus and the stool carry a very high viral load (10^9 particles per gram of feces or vomit) and only a small amount of the virus is necessary to infect someone else (as few as 10 particles). Infection can occur via inhalation, such as after a patient vomits or when the toilet is flushed. Poor personal hygiene can also result in infection. As a result strict isolation is recommended. Disinfection with bleach and the wearing of personal protective gear is indicated. In general, vomiting, watery diarrhea, stomach pain and/or cramps, headache and less commonly fever are the presenting symptoms. There typically is a 1 to 4- day incubation followed by a 4 to 8-day course. Because this is a single-strand ed RNA particle the treatment is strictly supportive. To be clear, I did not examine this patient and there does not appear to be a surgical issue. I wish to thank Dr. Faith Yu very much for this opportunity to collaborate with her in this very interesting patient's care.
[2023-02-15] MEDS: LOPERAMIDE 2 MG CAPSULE PO PRN (12:13)
[2023-02-15] MEDS: HYDROmorphone 1 MG/ML CARPUJECT IVP PRN ×3 (12:53→20:50)
[2023-02-15] MEDS: KETOROLAC 30 MG/ML VIAL IVP PRN ×2 (16:32→22:33)
[2023-02-15] MEDS: NORETHINDRONE 0.35 MG PO SCH (18:38)
[2023-02-15] MEDS: DOXYLAMINE 25 MG TABLET PO SCH (21:22)
[2023-02-16] MEDS: ACETAMINOPHEN 325 MG TABLET PO PRN ×2 (00:22→18:02)
[2023-02-16] MEDS: ONDANSETRON 4 MG/2 ML VIAL IVP PRN ×4 (00:26→19:05)
[2023-02-16] MEDS: SODIUM CHLORIDE FLUSH 0.9% 10 ML SYRINGE IVP SCH ×3 (00:32→14:39)
[2023-02-16] MEDS: HYDROmorphone 1 MG/ML CARPUJECT IVP SCH ×3 (02:01→06:10)
[2023-02-16] MEDS: KETOROLAC 30 MG/ML VIAL IVP SCH (05:14)
[2023-02-16] MEDS: D5.45NS W/20 MEQ KCL 1,000 ML IV SCH ×2 (07:10→08:50)
[2023-02-16] MEDS: SUCRALFATE 1 GM/10 ML UDC PO SCH ×4 (07:10→21:18)
[2023-02-16] MEDS: METOCLOPRAMIDE 10 MG/2 ML VIAL IVP SCH ×3 (07:10→16:33)
[2023-02-16] MEDS: SIMETHICONE CHEW 80 MG TABLET PO SCH ×4 (08:50→21:26)
[2023-02-16] MEDS: PYRIDOXINE 100 MG TABLET PO SCH ×2 (08:50→21:17)
[2023-02-16] MEDS: PANTOPRAZOLE 40 MG VIAL IV SCH ×2 (08:50→21:17)
[2023-02-16] MEDS: LACTOBACILLUS RHAMNOSUS GG CAPSULE PO SCH (08:50)
[2023-02-16] MEDS: SODIUM CHLORIDE FLUSH 0.9% 10 ML SYRINGE IVP PRN ×2 (11:18→21:18)
[2023-02-16] MEDS: HYDROmorphone 1 MG/ML CARPUJECT IVP PRN ×2 (11:19→22:54)
[2023-02-16] MEDS: SERTRALINE 50 MG TABLET PO SCH (11:26)
[2023-02-16] MEDS: KETOROLAC 30 MG/ML VIAL IVP PRN (14:48)
--- NOTE | 2023-02-16 15:31 | PROVIDER PROGRESS NOTE ---
Assessment/Plan - Problem List (1) Gastroenteritis due to sapovirus Assessment/Plan: As per literature review, the virus can shed for 6 weeks, so she needed to be put in contact infectious isolation, which was started on 02/15.. This had not been advised by our Infection building guard deputy sheriff or by the doctor I spoke to several days ago. Possibly her Sapovirus result needs to be reported to [facility]. I will contact our Infection building guard deputy sheriff, Kathrine Marcial (but today is Sat and she is not here on weekends) (2) Intractable vomiting with nausea Assessment/Plan: Etiology is most likely the sa[povirus gastroenteritis. Her first CT and repeat CT abd/pelvis showed no signif findings except gallbladder sand. MRCP done 02/14 showed normal result. Excessive gas was found on initial imaging and Simethicone has helped On 02/13 I called and spoke to Int Medicine Hospitalist doctor and reviewed the case. Recommendation was to use Reglan before meals and to cont supportive care and that doctor thought it may last a few more days. She is on Day #15 with symptoms. Since yesterday afternoon she feels a little bit stronger. 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 This was also the impression of the IM doctor at that I spoke to. Plan: Recheck daphne for C. diff and a repeat stool cx, since her diarrhea has changed Symptomatic treatment as in #2 and cont iv fluids Imodium prn was started (4) Bradycardia Conclusion/Plan: While sleeping and asymptomatic, the patient's heart rate dropped to 29 several nights ago. The next day she told us that she has a history of Tachy-kain syndrome and that she had tachycardia at 140 which was associated with syncope. Possibly that was Asfib, she said. She wore a Zio patch twice in the past Her prn Metoprolol is not treating the tachycardia but was ordered for migraine treatment Her EKG done was within normal limits On 02/13 I contacted the office of her Medical Csr, Dr Villaseñor at [facility] and learned that she does not carry a diagnosis of Tachy-Kain or Afib like she told us. Her Zio patch wearing both times did not show any SVT, only PACs and PVCs. Her Echo was normal. Plan: The prn Metoprolol was stopped (5) Polycystic ovarian disease Her TSH was checked due to her obesity (BMI 36.9), and TSH came back elevated at 5.65 (upper limit of normal is 5.6). Her free T4 was low end of normal range. She told us the TSH is followed by her PCP because it has been elevated in the past. Plan: Cont her hormonal ( control?) med (6) Migraines Conclusion/Plan: As per Hx, none now Plan: Remain off the beta-yohana, so that this will not promoting bradycardia She will need to be on different migraine medicine - Current Meds Current Meds: Current Medications Generic Name Dose Route Start Last Admin Trade Name Freq PRN Reason Stop Dose Admin Acetaminophen 650 mg 02/11/23 06:50 02/16/23 00:22 Acetaminophen 325 Mg Tablet PO 650 mg Q6H PRN Administration Pain or Fever > 38C (100.4F) Doxylamine Succinate 25 mg 02/12/23 21:00 02/15/23 21:22 Doxylamine 25 Mg Tablet PO 25 mg QPM HUMBERTO Administration Hydromorphone HCl 1 mg 02/11/23 12:06 02/16/23 11:19 Hydromorphone 1 Mg/Ml Carpuject IVP 1 mg Q2HR PRN Administration Severe Pain (Level 7-10) Hydromorphone HCl 1 mg 02/14/23 04:00 02/16/23 04:03 Hydromorphone 1 Mg/Ml Carpuject IVP 1 mg 0400 HUMBERTO Administration Potassium Chloride/Dextrose/Sod Cl 1,000 mls @ 60 mls/hr 02/16/23 07:40 02/16/23 08:50 D5.45ns W/20 Meq Kcl IV 60 mls/hr .[id number] HUMBERTO Administration Ketorolac Tromethamine 30 mg 02/14/23 18:41 02/16/23 14:48 Ketorolac 30 Mg/Ml Vial IVP 02/19/23 18:40 30 mg Q6HR PRN Administration Severe Pain (Level 7-10) Lactobacillus Rhamnosus 1 cap 02/11/23 09:00 02/16/23 08:50 Lactobacillus Rhamnosus Gg Capsule PO 1 cap DAILY HUMBERTO Administration Loperamide HCl 2 mg 02/11/23 19:06 02/15/23 12:13 Loperamide 2 Mg Capsule PO 2 mg QID PRN Administration Diarrhea Metoclopramide HCl 5 mg 02/13/23 16:30 02/16/23 11:24 Metoclopramide 10 Mg/2 Ml Vial IVP 5 mg AC HUMBERTO Administration Ondansetron HCl 8 mg 02/12/23 18:13 02/16/23 14:40 Ondansetron 4 Mg/2 Ml Vial IVP 8 mg Q4HR PRN Administration Nausea / Vomiting Pantoprazole Sodium 40 mg 02/11/23 21:00 02/16/23 08:50 Pantoprazole 40 Mg Vial IV 40 mg BID HUMBERTO Administration Patient Own Med ( 1 each 02/11/23 19:00 02/15/23 18:38 Incassia 0.35mg) PO 1 each 1900 HUMBERTO Administration Pyridoxine HCl 100 mg 02/12/23 21:00 02/16/23 08:50 Pyridoxine 100 Mg Tablet PO 100 mg BID HUMBERTO Administration Sertraline HCl 100 mg 02/12/23 09:00 02/16/23 11:26 Sertraline 50 Mg Tablet PO 100 mg DAILY HUMBERTO Administration Simethicone 80 mg 02/11/23 13:00 02/16/23 14:39 Simethicone Chew 80 Mg Tablet PO 80 mg 0900,1300,1800,2100 HUMBERTO Administration Sodium Chloride 10 ml 02/11/23 06:41 02/16/23 11:18 Sodium Chloride Flush 0.9% 10 Ml Syringe IVP 10 ml PRN PRN Administration NEEDED PER PROVIDER ORDERS Sodium Chloride 10 ml 02/11/23 09:00 02/16/23 14:39 Sodium Chloride Flush 0.9% 10 Ml Syringe IVP 10 ml 0100,0900,1700 HUMBERTO Administration Sucralfate 1 gm 02/11/23 07:00 02/16/23 11:26 Sucralfate 1 Gm/10 Ml Udc PO 1 gm 0700,1100,1600,2200 HUMBERTO Administration - Lab Result Fish Bone Diagrams: 02/15/23 05:43 02/15/23 05:43 - Additional Planning My Orders: My Active Orders 02/16/23 07:40 D5.45ns W/20 Meq KCl 1,000 ml IV 60 mls/hr 02/16/23 15:05 C DIFF PCR Urgent STOOL CULTURE [REFLAB] Stat 02/17/23 01:00 HYDROmorphone 1MG CARP [Dilaudid 1Mg Carp] 1 mg IVP 0100 02/17/23 03:00 Ketorolac Inj (30Mg) [Toradol Inj (30Mg)] 30 mg IVP 0300 Subjective - Subjective Patient Reports: Feeling Better (Still has abdominal pain, no further diarrhea, slightly better nausea) Objective Vital Signs: Vital Signs - 24 hr 02/15/23 02/16/23 02/16/23 21:10 00:23 05:00 Temperature 36.8 C 36.6 C 36.5 C Heart Rate [ 61 64 61 Brachial] Respiratory 16 16 16 Rate Blood Pressure 105/65 96/52 L 107/57 L [Left Brachial artery] O2 Saturation 98 98 97 02/16/23 02/16/23 08:08 12:04 Temperature 36.6 C 37.1 C Heart Rate [ 67 70 Brachial] Respiratory 14 14 Rate Blood Pressure 133/62 H 123/66 [Left Brachial artery] O2 Saturation 94 97 Oxygen O2 Source Room air I&O (Last 24 Hrs): Intake and Output Totals x24h 02/14/23 02/15/23 02/16/23 23:59 23:59 23:59 Intake Total 1320 2516.667 1503.333 Output Total 150 Balance 1170 2516.667 1503.333 General: Alert, Oriented x3 HEENT: EOMI, Mucous membr. moist/pink Neck: Supple Neuro: Alert, Non Focal Cardiovascular: Regular rate Respiratory: No respiratory distress Abdomen: Soft, No tenderness Extremities: No clubbing, No edema, No tenderness/swelling - Results Results: Laboratory Results WBC 6.5 x10^3/uL (4.8-10.8) 02/15/23 05:43 RBC 4.88 10^6/uL (4.20-5.40) 02/15/23 05:43 Hgb 13.7 g/dL (12.0-16.0) 02/15/23 05:43 Hct 41.5 % (37.0-47.0) 02/15/23 05:43 MCV 85.0 fL (81.0-99.0) 02/15/23 05:43 MCH 28.1 pg (27.0-31.0) 02/15/23 05:43 MCHC 33.0 g/dL (32.0-36.0) 02/15/23 05:43 RDW 11.6 % (12.0-15.0) L 02/15/23 05:43 Plt Count 289 10^3/uL (130-450) 02/15/23 05:43 MPV 9.9 fL (7.9-10.8) 02/15/23 05:43 Neut # (Auto) 3.5 10^3/uL (1.5-6.6) 02/15/23 05:43 Lymph # (Auto) 2.0 10^3/uL (1.5-3.5) 02/15/23 05:43 [place] # (Auto) 0.7 10^3/uL (0.0-1.0) 02/15/23 05:43 Eos # (Auto) 0.2 10^3/uL (0.0-0.7) 02/15/23 05:43 Baso # (Auto) 0.0 10^3/uL (0.0-0.1) 02/15/23 05:43 Absolute Nucleated RBC 0.00 x10^3/uL 02/15/23 05:43 Nucleated RBC % 0.0 /100WBC 02/15/23 05:43 Sodium 138 mmol/L (135-145) 02/15/23 05:43 Potassium 3.8 mmol/L (3.5-4.5) 02/15/23 05:43 Chloride 104 mmol/L (101-111) 02/15/23 05:43 Carbon Dioxide 27 mmol/L (21-32) 02/15/23 05:43 Anion Gap 7.0 (6-13) 02/15/23 05:43 BUN 6 mg/dL (6-20) 02/15/23 05:43 Creatinine 0.9 mg/dL (0.6-1.3) 02/15/23 05:43 Estimated GFR (MDRD) 79 (>89) L 02/15/23 05:43 Glucose 99 mg/dL (74-104) 02/15/23 05:43 POC Whole Bld Glucose 100 mg/dL (70 - 100) 02/13/23 10:53 Lactic Acid 0.6 mmol/L (0.5-2.2) 02/13/23 16:16 Calcium 9.1 mg/dL (8.5-10.3) 02/15/23 05:43 Phosphorus 4.5 mg/dL (2.5-5.0) 02/15/23 05:43 Magnesium 1.8 mg/dL (1.7-2.3) 02/15/23 05:43 Total Bilirubin 0.4 mg/dL (0.2-1.0) 02/12/23 10:59 AST 17 IU/L (10-42) 02/12/23 10:59 ALT 19 IU/L (10-60) 02/12/23 10:59 Alkaline Phosphatase 57 IU/L (42-121) 02/12/23 10:59 Total Protein 7.3 g/dL (6.4-8.9) 02/12/23 10:59 Albumin 4.4 g/dL (3.2-5.5) 02/12/23 10:59 Globulin 2.9 g/dL (2.1-4.2) 02/12/23 10:59 Albumin/Globulin Ratio 1.5 (1.0-2.2) 02/12/23 10:59 Lipase 57 U/L (11-82) 02/10/23 23:07 TSH 5.65 uIU/mL (0.34-5.60) H 02/11/23 07:10 Free T4 Direct 0.95 ng/dL (0.58-1.64) 02/12/23 10:59 Urine Color YELLOW 02/10/23 22:54 Urine Clarity CLEAR (CLEAR) 02/10/23 22:54 Urine pH 6.5 PH (5.0-7.5) 02/10/23 22:54 Ur Specific [place] 1.010 (1.002-1.030) 02/10/23 22:54 Urine Protein NEGATIVE mg/dL (NEGATIVE) 02/10/23 22:54 Urine Glucose (UA) NEGATIVE mg/dL (NEGATIVE) 02/10/23 22:54 Urine Ketones NEGATIVE mg/dL (NEGATIVE) 02/10/23 22:54 Urine Occult Blood NEGATIVE (NEGATIVE) 02/10/23 22:54 Urine Nitrite NEGATIVE (NEGATIVE) 02/10/23 22:54 Urine Bilirubin NEGATIVE (NEGATIVE) 02/10/23 22:54 Urine Urobilinogen 2 E.U./dL (NORMAL) H 02/10/23 22:54 Ur Leukocyte Esterase NEGATIVE (NEGATIVE) 02/10/23 22:54 Ur Microscopic Review NOT INDICATED 02/10/23 22:54 Urine Culture Comments NOT INDICATED 02/10/23 22:54 Urine HCG, Qual NEGATIVE 02/10/23 22:54
[2023-02-16] MEDS: LOPERAMIDE 2 MG CAPSULE PO PRN (19:05)
[2023-02-16] MEDS: NORETHINDRONE 0.35 MG PO SCH (21:17)
[2023-02-16] MEDS: DOXYLAMINE 25 MG TABLET PO SCH (21:17)
[2023-02-17] MEDS ORDERED: HYDROmorphone 1 MG/ML CARPUJECT IVP SCH (01:00)
[2023-02-17] MEDS: D5.45NS W/20 MEQ KCL 1,000 ML IV SCH (01:48)
[2023-02-17] MEDS: ACETAMINOPHEN 325 MG TABLET PO PRN (01:48)
[2023-02-17] MEDS: SODIUM CHLORIDE FLUSH 0.9% 10 ML SYRINGE IVP SCH ×3 (02:00→16:38)
[2023-02-17] MEDS ORDERED: KETOROLAC 30 MG/ML VIAL IVP SCH (03:00)
[2023-02-17] MEDS ORDERED: oxyCODONE 5 MG TABLET PO PRN (04:32)
[2023-02-17] MEDS: METOCLOPRAMIDE 10 MG/2 ML VIAL IVP SCH ×3 (07:04→16:36)
[2023-02-17] MEDS: SUCRALFATE 1 GM/10 ML UDC PO SCH ×3 (07:04→16:36)
[2023-02-17] MEDS: LACTOBACILLUS RHAMNOSUS GG CAPSULE PO SCH (10:02)
[2023-02-17] MEDS: PANTOPRAZOLE 40 MG VIAL IV SCH (10:02)
[2023-02-17] MEDS: PYRIDOXINE 100 MG TABLET PO SCH (10:02)
[2023-02-17] MEDS: SERTRALINE 50 MG TABLET PO SCH (10:03)
[2023-02-17] MEDS: SIMETHICONE CHEW 80 MG TABLET PO SCH ×2 (10:03→13:15)
[2023-02-17] MEDS: HYDROmorphone 1 MG/ML CARPUJECT IVP SCH (12:59)
[2023-02-17 16:09] VITALS: O2SAT 97
--- NOTE | 2023-02-17 17:46 | Discharge Plan ---
Discharge Plan Problem Reviewed?: Yes Disposition: Home, Self Care Condition: Fair Prescriptions: Diphenoxylate/Atropine [Lomotil] 1 each PO QID PRN #10 tablet PRN Reason: Diarrhea ONDANSETRON ODT Prepack 2 [ZOFRAN ODT Prepack 2] 4 mg TL Q6H PRN #10 tablet PRN Reason: Nausea / Vomiting Diet: Soft Activity Restrictions: Activity as Tolerated Shower Restrictions: No Driving Restrictions: No Health Concerns: You were hospitalized to treat a severe case of Sapovirus gastroenteritis causing nausea, vomiting and diarrhea. You needed bowel rest by having clear liquids and you needed IV fluids. We gave you antiemetics and antidiarrheal medicines. The last 12 to 24 hours you have improved and are tolerating a pured diet therefore you are being discharged home today. If you have vomiting or diarrhea, remember there are particles of virus in those liquids that could be contagious to other people, so practice good hygiene. Please still get plenty of rest. Stay well-hydrated. Please still eat a pured bland diet for many days and advance slowly as tolerated. Several tablets of Lomotil for diarrhea and Zofran for nausea have been prescribed for you and electronically sent to your [facility] in [place]. Please do not use your Metoprolol, since we documented that your heart rate can go as low as 29 when you are sleeping. Please have follow-up with a (different) Automotive Mechanic. You need to get established with a new Primary Care Provider. You need a hospital follow-up visit with a PCP doctor's office, in the next 1 to 2 weeks. Plan of Treatment: As above. Care Goals: Improvement in symptoms and stabilization are the goals. Assessment: The patient understands and is agreeable with the plan. Additional Instructions or Follow Up instructions: If you have new or worsening symptoms, call your PCP or your Automotive Mechanic, or come to the ER. No Smoking: If you smoke, Please STOP! Call for help.
[2023-02-17 18:03] VITALS: BP 120/70
--- NOTE | 2023-02-18 12:15 | DISCHARGE SUMMARY ---
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 She presented to the ER last night with complaints of 9 days of nausea, vomiting, diarrhea and abdominal pain. This is not the abd pain of her ovarian cysts. She has not even been able to keep down liquids orally for a day. She gets crampy abd pain and describes the diarrhea as watery or estrada-yellow and mucosy. She had a workup started on 02/05 in a clinic and a stool culture was sent off. This came back showing positive Sapovirus but negative for other organisms and neg for C. diff. In the ER today, she had abdominal pain and tenderness in the right abdomen and had incessant nausea and vomiting. She has required several doses of Dilaudid IV which helped the pain temporarily, and had multiple doses of antiemetics including repeat doses of Zofran, 8 mg, 4 mg doses, Phenergan was also given that caused her to be dystonic. Droperidol is not available. She underwent workup with CT abdomen pelvis that showed innumerable mesenteric lymph nodes, felt to be reactive. She had incidental findings of hepatic steatosis and a 1.6 cm left liver mass (probable hemangioma) and a punctate right-sided renal stones. The ER doctor reported these findings to her. She also underwent right upper quadrant ultrasound which was negative but there was a lot of intestinal gas seen. Her labs were stable and her hcg neg. While in the ER, she also received iv fluids, a GI cocktail, IV Protonix, IV Toradol and po Simethicone. Despite these, she has continued nausea and vomiting and the abd pain returns, is rated 9/10. The ER doctor spoke to the night Hospitalist who placed orders for Observation management of this patient, but did not meet the patient by telemedicine video. The ER provider then spoke to me on Day shift about the patient. She will be brought into Observation status for managing intractable nausea and vomiting. - HOSPITAL COURSE Hospital Course: (1) Gastroenteritis due to sapovirus As per literature review, the virus can shed for 6 weeks, so she was put in contact infectious isolation, which was started on 02/15/23. Isolation had not been advised by our Infection cartridge belt puncher or by the doctor I spoke to. (2) Intractable vomiting with nausea Her N/V persisted and she was made an Inpatient. Her first CT and a repeat CT abd/pelvis showed no signif findings except gallbladder sand. MRCP done 02/14/23 showed normal result. All her labs including Lipase and LFTs were normal. She required frequent pain meds (iv Dilaudid and iv Toradol) and frequent Zofran. Excessive gas was found on initial imaging and Simethicone also helped. She was on a clear liquid diet and got iv fluids throughout her hospital stay. The etiology was most likely sapovirus gastroenteritis. On 02/13/23, I katy led for advice and was put in contact with Int Medicine Hospitalist doctor (GI only gave assistance if the patient was an established GI patient, they said). and reviewed the case. Recommendation was to use Reglan before meals and to continue supportive care. On 02/17/23, she tried pureed food, had no N/V/D, and was able to be discharged with diet instructions. 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 Later she remembered she had eaten shellfish 2 days before the sx began. She received iv fluids throughout her hospital stay and Imodium prn. We sent off a stool to recheck, which was not resulted at the time of discharge. (4) Bradycardia While sleeping the patient's heart rate dropped to 29 one night. The next day she told us that she may have a history of Tachy-aria syndrome and that she had tachycardia at 140 which was associated once with syncope. She wore a Zio patch twice in the past. Her EKG was done here and was within normal limits. I contacted the office of her Speaking Unit Assembler, Dr Villaseñor at [facility] and learned that she does not carry a diagnosis of Tachy-Aria like she told us. Her Zio patch wearing both times did not show any SVT, or bradycardia, only PACs and PVCs. Her Echo at their office was normal. Her prn Metoprolol, which she used for migraine treatment, was stopped. (5) Polycystic ovarian disease Her TSH was checked due to her obesity (BMI 36.9), and TSH came back elevated at 5.65 (upper limit of normal is 5.6). Her free T4 was low end of normal range. She told us the TSH is followed by her PCP because it has been elevated in the past. She was kept on her hormonal ( control?) med. (6) Migraines As per Hx, none during this admission. She was advised to remain off the beta-bl ockers to not promote bradycardia. She will need to be on different migraine medicine - ALLERGIES Allergies/Adverse Reactions: Allergies Allergy/AdvReac Type Severity Reaction Status Date / Time sumatriptan Allergy Anaphylaxis Verified 02/10/23 22:49 promethazine [From Phenergan] AdvReac Anxiety Verified 02/11/23 08:00 - MEDICATIONS Home Medications: Ambulatory Orders Medication Instructions Recorded Confirmed Norethindrone 0.35 mg PO DAILY 02/11/23 02/11/23 Promethazine [Phenergan] 25 mg PO Q6H PRN 02/11/23 02/11/23 Sertraline HCl 100 mg PO DAILY 02/11/23 02/11/23 Diphenoxylate/Atropine [Lomotil] 1 each PO QID PRN #10 tablet 02/17/23 ONDANSETRON ODT Prepack 2 [ZOFRAN 4 mg TL Q6H PRN #10 tablet 02/17/23 ODT Prepack 2] - PHYSICAL EXAM AT DISCHARGE General Appearance: positive: No acute distress, Alert Eyes Bilateral: positive: Normal inspection, EOMI ENT: positive: ENT inspection nml, No signs of dehydration Neck: positive: Nml inspection, No JVD Respiratory: positive: No respiratory distress Cardiovascular: positive: Regular rate & rhythm Abdomen: positive: Non-tender, No distention, Other (Obese) Skin: positive: Warm, Dry Extremities: positive: Non-tender, No pedal edema Neurologic/Psychiatric: positive: Oriented x3, CN's nml (2-12), Motor nml - LABS Result Diagrams: 02/15/23 05:43 02/15/23 05:43 - DIAGNOSTIC IMAGING Diagnostic Imaging Results: Final report reviewed - FOLLOW UP Follow Up: Establish with a PCP and have a hospital follow-up office visit in 5-10 days. - TIME SPENT Time Spent in Discharge (Minutes): 45
== END 2023-02-17 18:15 | disposition home or self-care (01) | DRG 392 ==
LOC: ED 22:30 → MS3 02-11 06:41 → OBSVTOIN 02-12 10:36
PROVIDERS: ADMIT Student in an Organized Health Care Education/Training Program; ATTEND Internal Medicine
DX: A08.39 Other viral enteritis (principal); R00.1 Bradycardia, unspecified; E28.2 Polycystic ovarian syndrome; G43.909 Migraine, unspecified, not intractable, without status migrainosus; N20.0 Calculus of kidney
CPT/HCPCS: 36415; 74176; 74177; 74183; 76705; 80048; 80053; 81003; 81025; 83605; 83690; 83735; 84100; 84439; 84443; 85025; 87045; 87046; 87427; 93005; 93306; 96361; 96374; 96375; 96376; 99285; A9270; A9575; G0378; J1170; J2765; J7120; Q0162; Q9967; 81001; 87086; 87493

== ENCOUNTER 2023-02-19 01:42 | Outpatient (CLI) | payer OTHER | END 2023-02-19 01:43 | disposition critical access hospital (66) | LOC: EMS 01:42 | DX: R10.84 Generalized abdominal pain (principal); R11.2 Nausea with vomiting, unspecified; R19.7 Diarrhea, unspecified | CPT/HCPCS: A0425; A0427 ==

== ENCOUNTER 2023-02-19 02:12 | Emergency (ER) | payer OTHER ==
--- NOTE | 2023-02-19 02:31 | ED Physician Documentation ---
PD HPI ABD PAIN - Stated complaint Stated Complaint: ABD PX - Chief complaint Chief Complaint: Abd Pain - History obtained from History obtained from: Patient, EMS - History of Present Illness Quality: Cramping - Additional information Additional information: BIBA. HPI from patient. Patient c/o generalized abdominal pain, nausea and vomiting. Pain was 9 (of 10), improved to 7 after 15mg IV toradol by EMS. EMS also administered 4mg IV zofran en route. Patient was admitted 02/11 to [facility] for these symptoms, discharged 02/17. When she was admitted, symptoms included diarrhea, but this has significantly improved with lomotil. Before being admitted, she had outpatient evaluation including GI PCR (stool) which was positive for sapovirus. Her inpatient workup included a second CT A/P (first was performed in ED as was RUQ US), MRCP, and echocardiogram. There were no diagnostic findings on these studies and her symptoms were suspected to be due to the sapovirus on 02/05/23 GI PCR result. Review of Systems Constitutional: reports: Reviewed and negative Cardiac: reports: Reviewed and negative Respiratory: reports: Reviewed and negative GI: reports: Abdominal Pain, Nausea, Vomiting. 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 : Other Psych: None Musculoskeletal: None Derm: None - Past Surgical History Past Surgical History: No HEENT: Tonsil/Adenoidectomy - Present Medications Home Medications: Ambulatory Orders Medication Instructions Recorded Confirmed Norethindrone 0.35 mg PO DAILY 02/11/23 02/19/23 Promethazine [Phenergan] 25 mg PO Q6H PRN 02/11/23 02/19/23 Sertraline HCl 100 mg PO DAILY 02/11/23 02/19/23 Diphenoxylate/Atropine [Lomotil] 1 each PO QID PRN #10 tablet 02/17/23 02/19/23 ONDANSETRON ODT Prepack 2 [ZOFRAN 4 mg TL Q6H PRN #10 tablet 02/17/23 02/19/23 ODT Prepack 2] Lidocaine Viscous 2% [Xylocaine 5 - 10 ml MM Q4H #100 ml 02/19/23 Viscous 2%] Ondansetron [Ondansetron Odt] 8 mg PO TID #14 tab 02/19/23 Pantoprazole [Protonix] 40 mg PO DAILY #14 tablet 02/19/23 oxyCODONE [Roxicodone] 5 - 10 mg PO Q6H PRN #14 tablet 02/19/23 - Allergies Allergies/Adverse Reactions: Allergies Allergy/AdvReac Type Severity Reaction Status Date / Time sumatriptan Allergy Anaphylaxis Verified 02/19/23 02:23 promethazine [From Phenergan] AdvReac Anxiety Verified 02/19/23 02:23 - Social History Does the pt smoke?: No Smoking Status: Never smoker Does the pt drink ETOH?: No Does the pt have substance abuse?: No - Immunizations Immunizations are current?: Yes - POLST Patient has POLST: No PD ED PE NORMAL - Vitals Vital signs reviewed: Yes - General General: Alert and oriented X 3, Well developed/nourished, Other (appears to be in mild-moderate painful discomfort) - Cardiac Cardiac: RRR, No murmur - Respiratory Respiratory: No respiratory distress, Clear bilaterally - Abdomen Abdomen: Normal bowel sounds, Soft, Non tender, Non distended - Back Back: No CVA TTP - Derm Derm: Normal color, Warm and dry Results - Vitals Vitals: Oxygen O2 Source Room air - Labs Labs: Laboratory Tests 02/19/23 02/19/23 02/19/23 02:45 02:45 03:40 WBC 8.3 RBC 4.81 Hgb 13.7 Hct 41.4 MCV 86.1 MCH 28.5 MCHC 33.1 RDW 12.0 Plt Count 306 MPV 10.0 Neut # (Auto) 4.6 Lymph # (Auto) 2.7 [place] # (Auto) 0.7 Eos # (Auto) 0.2 Baso # (Auto) 0.1 Absolute Nucleated RBC 0.00 Nucleated RBC % 0.0 Sodium 138 Potassium 3.7 Chloride 107 Carbon Dioxide 26 Anion Gap 5.0 L BUN 8 Creatinine 0.7 Estimated GFR (MDRD) 106 Glucose 97 Calcium 9.3 Total Bilirubin 0.4 AST 39 ALT 58 Alkaline Phosphatase 50 Total Protein 6.5 Albumin 4.0 Globulin 2.5 Albumin/Globulin Ratio 1.6 Lipase 57 Urine Color YELLOW Urine Clarity CLEAR Urine pH 6.0 Ur Specific [place] >=1.030 H Urine Protein NEGATIVE Urine Glucose (UA) NEGATIVE Urine Ketones TRACE Urine Occult Blood NEGATIVE Urine Nitrite NEGATIVE Urine Bilirubin NEGATIVE Urine Urobilinogen 1 (NORMAL) Ur Leukocyte Esterase NEGATIVE Ur Microscopic Review NOT INDICATED Urine Culture Comments NOT INDICATED PD Medical Decision Making - ED course Complexity details: reviewed old records, reviewed results, re-evaluated patient, considered differential, d/w patient ED course: Normal CBC and ER abdominal panel (insignificant/noncontributory finding of anion gap 5). She is given 4mg IV zofran (in addition to 4mg IV by EMS), pyridoxine 100mg PO with doxylamine 25mg PO, dilaudid 1 mg IVP with repeat dose, NS IV 1 liter, 10ml PO viscous lidocaine with 30cc mylanta plus. On reevaluation, test results reviewed with patient. She is in NAD and reports good symptom relief. She might benefit from further testing which can take place in outpatient setting at this point. Return precautions are discussed and she will seek follow up with PCP for reevaluation. I electronically submitted prescriptions for oxycodone, viscous lidocaine, protonix, and 8mg TL ondansetron to the [facility] pharmacy in [place]. The cause of her symptoms is not apparent at this time. The duration of symptoms would be outside of the expected range I am finding in the literature regarding sapovirus. I am prescribing a short course of short-acting opioid pain medication for this patient. I have reviewed the patients ASPARAGUS BUNCHER and no concerning findings were noted. I have discussed that the opioids are for short term therapy only, and will not be refilled from the ED. Departure - Departure Disposition: 01 Home, Self Care Clinical Impression: Abdominal pain Qualifiers: Abdominal location: generalized Qualified Code(s): R10.84 - Generalized abdominal pain Condition: Good Instructions: ED Abdominal Pain Female Non-Specific Abdominal Pain Prescriptions: Ondansetron [Ondansetron Odt] 8 mg PO TID #14 tab Pantoprazole [Protonix] 40 mg PO DAILY #14 tablet oxyCODONE [Roxicodone] 5 - 10 mg PO Q6H PRN #14 tablet PRN Reason: Pain 5-7 Lidocaine Viscous 2% [Xylocaine Viscous 2%] 5 - 10 ml MM Q4H #100 ml Comments: Tonight's blood tests were normal. Given the recent (inpatient) tests performed, and your improvement in symptoms in the ER, further emergent testing is unlikely to yield a diagnosis or change immediate management. This is not to say that you do not need any further tests, but at this time further testing can take place in the outpatient setting. Follow-up with your primary care provider (next available appointment) for reevaluation. I have electronically submitted prescriptions (to the [facility] pharmacy in [place]) for oxycodone (narcotic/opiate pain medication), viscous lidocaine (liquid oral medication that can help numb the esophagus and stomach which often helps with several different causes of abdominal pain), protonix (acid-blocking medication), and ondansetron at a higher dose than what you were previously prescribed. As we discussed, you can also take 25mg doxylamine at bedtime as needed for nausea/vomiting. This is [id number] (one of the more common brand names is Unisom) and thus no prescription is needed. You can also take Simethicone for bloating symptoms; this is an anti-gas medication and is also [id number] (mylicon is one of the more common brand names, take per label instructions. Alternatively you can take mylicon plus which includes antacids). I am prescribing a short course of narcotic pain medication for you. These are potentially dangerous and addictive medications that should be used carefully. These medications may constipate you. Take an sdfj-kbo-gklncpd stool softener (docusate) twice daily with plenty of water while taking these medications. If you go 24 hours without a bowel movement, take pbxk-hhu-tiyfujg miralax, per package instructions. Do not drink or drive while taking these medications. If you received narcotic or sedating medications while in the emergency department, do not drive for 24 hours. Store this medication in a safe, secure place and out of reach of children. It is a violation of federal law to give or sell this medication to another person or to use in a manner other than prescribed. The ED will not refill narcotic prescriptions, including prescriptions lost or stolen. To dispose of unwanted medications: 1. [facility] [address] in [place] has a medication drop box. They accept prescription medications (in pill form) Friday through Friday 9:00 a.m. to 5:00 p.m. 2. The [facility] accepts prescription medications (in pill form only) for disposal year round. Call for more information. 3. Contact the [facility] for the next [facility] sponsored prescription drug collection event. , [phone], or [phone]; Forms: PCP List Discharge Date/Time: 02/19/23 06:15
[2023-02-19] MEDS ORDERED: ONDANSETRON 4 MG/2 ML VIAL IVP STA (02:39)
[2023-02-19] MEDS ORDERED: HYDROmorphone 1 MG/ML CARPUJECT IVP STA ×2 (02:39→04:56)
[2023-02-19] MEDS ORDERED: MAG HYDROX/AL HYDROX/SIMETH 30 ML UDC PO STA (02:40)
[2023-02-19] MEDS ORDERED: LIDOCAINE VISCOUS 2% 15 ML ORAL SYRINGE MM STA (02:40)
[2023-02-19] MEDS ORDERED: SODIUM CHLORIDE 0.9% 1,000 ML IV STA (02:42)
[2023-02-19 02:57] LABS: BASOPHILS # (AUTO) 0.1 10^3/uL (0.0-0.1); BASOPHILS % (AUTO) 0.6 %; EOSINOPHILS # (AUTO) 0.2 10^3/uL (0.0-0.7); EOSINOPHILS % (AUTO) 2.2 %; HCT - HEMATOCRIT 41.4 % (37.0-47.0); HGB - HEMOGLOBIN 13.7 g/dL (12.0-16.0); LYMPHOCYTES # (AUTO) 2.7 10^3/uL (1.5-3.5); LYMPHOCYTES % (AUTO) 32.5 %; MEAN CORPUSCULAR HEMOGLOBIN 28.5 pg (27.0-31.0); MEAN CORPUSCULAR HGB CONC 33.1 g/dL (32.0-36.0); MEAN CORPUSCULAR VOLUME 86.1 fL (81.0-99.0); MONOCYTES # (AUTO) 0.7 10^3/uL (0.0-1.0); MONOCYTES % (AUTO) 8.7 %; NEUTROPHILS # (AUTO) 4.6 10^3/uL (1.5-6.6); NEUTROPHILS % (AUTO) 55.8 %; PLT - PLATELET COUNT 306 10^3/uL (130-450); RED BLOOD COUNT 4.81 10^6/uL (4.20-5.40); WHITE BLOOD COUNT 8.3 x10^3/uL (4.8-10.8)
[2023-02-19 03:06] LABS: ALBUMIN/GLOBULIN RATIO 1.6 (1.0-2.2); BILIRUBIN,TOTAL 0.4 mg/dL (0.2-1.0); CALCIUM 9.3 mg/dL (8.5-10.3); CREATININE 0.7 mg/dL (0.6-1.3); POTASSIUM 3.7 mmol/L (3.5-4.5); TOTAL PROTEIN 6.5 g/dL (6.4-8.9)
[2023-02-19 04:42] LABS: BILIRUBIN,URINE NEGATIVE (NEGATIVE); GLUCOSE, URINE (UA) NEGATIVE (NEGATIVE); KETONES,URINE (UA) TRACE mg/dL (NEGATIVE); LEUKOCYTE ESTERASE, URINE NEGATIVE (NEGATIVE); NITRITE,URINE NEGATIVE (NEGATIVE); OCCULT BLOOD,URINE NEGATIVE (NEGATIVE); PROTEIN,URINE NEGATIVE (NEGATIVE); UROBILINOGEN,URINE 1 (NORMAL) E.U./dL (NORMAL)
[2023-02-19 04:43] LABS: CLARITY,URINE CLEAR (CLEAR)
[2023-02-19] MEDS ORDERED: DOXYLAMINE 25 MG TABLET PO STA (04:56)
[2023-02-19] MEDS ORDERED: PYRIDOXINE 100 MG TABLET PO STA (04:57)
[2023-02-19 07:30] VITALS: BP 101/60; O2SAT 97
== END 2023-02-19 06:15 | disposition home or self-care (01) ==
LOC: EDUNIT# → ED 02:12
DX: R10.84 Generalized abdominal pain (principal)
CPT/HCPCS: 36415; 80053; 81003; 83690; 85025; 96374; 96376; 99283; A9270; J1170; 81001; 87086

== ENCOUNTER 2023-03-10 19:57 | Emergency (ER) | payer OTHER ==
--- NOTE | 2023-03-10 20:06 | ED Physician Documentation ---
PD HPI NVD - Stated complaint Stated Complaint: ABD PX,N/V - Chief complaint Chief Complaint: Abd Pain - History obtained from History obtained from: Patient - History of Present Illness Timing - onset: Yesterday Timing - details: Abrupt onset, Still present, Waxing and waning (The patient started with lower abdominal crampy pain associate with nausea and vomiting frequently since yesterday. She has had similar symptoms several times over the past few months lasting days at a time. No hematemesis. Some loose stool only. Previously associated with diarrhea.) Associated symptoms: Abdominal pain (cramping lower abd mainly), Dizzy (generally weak and lightheaded), Loss of appetite. No: Fever, Chest pain, Hematemesis Contributing factors: No: Sick contact, Bad food, Recent antibiotics Improved by: Vomiting (briefly) Worsened by: Eating Similar symptoms before: No diagnosis (Previous episode was associated with admission to the hospital for 8 days with a stool PCR testing showing a stool virus Saprovirus. Consideration of subsequent IBD/Crohns as has had repeated bouts lasting days at a time.) Recently seen: Admitted (early Jan (a month ago) for similar with labs and CT scan without particular findings.) Review of Systems Constitutional: denies: Fever, Chills, Myalgias Nose: denies: Rhinorrhea / runny nose, Congestion Throat: denies: Sore throat Respiratory: denies: Cough : denies: Dysuria, Discharge PD PAST MEDICAL HISTORY - Past Medical History Past Medical History: Yes Cardiovascular: Other (tachycardia at times, considering POTS but not firm diagnosis. 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 : Other Psych: None Musculoskeletal: None Derm: None - Past Surgical History Past Surgical History: No HEENT: Tonsil/Adenoidectomy - Present Medications Home Medications: Ambulatory Orders Medication Instructions Recorded Confirmed Norethindrone 0.35 mg PO DAILY 02/11/23 02/19/23 Promethazine [Phenergan] 25 mg PO Q6H PRN 02/11/23 02/19/23 Sertraline HCl 100 mg PO DAILY 02/11/23 02/19/23 Diphenoxylate/Atropine [Lomotil] 1 each PO QID PRN #10 tablet 02/17/23 02/19/23 ONDANSETRON ODT Prepack 2 [ZOFRAN 4 mg TL Q6H PRN #10 tablet 02/17/23 02/19/23 ODT Prepack 2] Lidocaine Viscous 2% [Xylocaine 5 - 10 ml MM Q4H #100 ml 02/19/23 Viscous 2%] Ondansetron [Ondansetron Odt] 8 mg PO TID #14 tab 02/19/23 Pantoprazole [Protonix] 40 mg PO DAILY #14 tablet 02/19/23 oxyCODONE [Roxicodone] 5 - 10 mg PO Q6H PRN #14 tablet 02/19/23 Digestive 8/L.acidoph/Pectin 2 each PO DAILY #40 tablet 03/10/23 [Digestive Enzymes Tablet] Hyoscyamine [Levsin] 0.125 mg SL AC PRN #20 tablet 03/10/23 Metoclopramide [Reglan] 10 mg PO ACHS PRN #20 tablet 03/10/23 Prochlorperazine Supp [Compazine 25 mg [place] ONCE PRN #5 supp 03/10/23 Supp] Simethicone 180 mg PO BID PRN #20 cap 03/10/23 - Allergies Allergies/Adverse Reactions: Allergies Allergy/AdvReac Type Severity Reaction Status Date / Time sumatriptan Allergy Anaphylaxis Verified 03/10/23 20:00 promethazine [From Phenergan] AdvReac Anxiety Verified 03/10/23 20:00 - Living Situation Living Arrangement: reports: At home - Social History Does the pt smoke?: No Smoking Status: Never smoker Does the pt drink ETOH?: No Does the pt have substance abuse?: No Substance Use and Type: Other (denies cannibis use) - Immunizations Immunizations are current?: Yes - POLST Patient has POLST: No PD ED PE NORMAL - Vitals Vital signs reviewed: Yes - General General: Alert and oriented X 3, Well developed/nourished, Other (active emesis during exam/in ER. No hematemesis. ) - Neck Neck: Supple, no meningeal sign, No adenopathy - Cardiac Cardiac: RRR, No murmur - Abdomen Abdomen: Normal bowel sounds, Soft, No organomegaly, Other (some bloated but not firmly distended lower abd. Tender to palpation lower abd both sides. ) Results - Vitals Vitals: Oxygen O2 Source Room air - Labs Labs: Microbiology 03/10/23 20:43 Urine Culture - Final Urine,Random 50-100,000 COLONIES/ML Polymicrobial growth including potential pathogens. This is suggestive of skin or other contamination. Laboratory Tests 03/10/23 03/10/23 03/10/23 20:30 20:30 20:43 WBC RBC Hgb Hct MCV MCH MCHC RDW Plt Count MPV Neut # (Auto) Lymph # (Auto) [place] # (Auto) Eos # (Auto) Baso # (Auto) Absolute Nucleated RBC Nucleated RBC % ESR Sodium Potassium Chloride Carbon Dioxide Anion Gap BUN Creatinine Estimated GFR (MDRD) Glucose Calcium Magnesium Total Bilirubin AST ALT Alkaline Phosphatase C-Reactive Protein Total Protein Albumin Globulin Albumin/Globulin Ratio Lipase Urine Color YELLOW Urine Clarity CLEAR Urine pH 6.0 Ur Specific [place] >=1.030 H Urine Protein NEGATIVE Urine Glucose (UA) NEGATIVE Urine Ketones TRACE Urine Occult Blood NEGATIVE Urine Nitrite NEGATIVE Urine Bilirubin NEGATIVE Urine Urobilinogen 1 (NORMAL) Ur Leukocyte Esterase SMALL H Urine RBC 0-5 Urine WBC 4-5 Ur Squamous Epith Cells FEW Squamous Urine Bacteria Many H Ur Microscopic Review INDICATED Urine Culture Comments INDICATED Urine HCG, Qual NEGATIVE Stool Leukocytes, Qual NEGATIVE Stool H. pylori Ag NEGATIVE Tiss Transglutamin IgA 03/10/23 03/10/23 03/10/23 20:45 20:45 20:45 WBC 8.2 RBC 4.88 Hgb 13.6 Hct 42.8 MCV 87.7 MCH 27.9 MCHC 31.8 L RDW 12.3 Plt Count 293 MPV 10.2 Neut # (Auto) 4.9 Lymph # (Auto) 2.5 [place] # (Auto) 0.6 Eos # (Auto) 0.1 Baso # (Auto) 0.0 Absolute Nucleated RBC 0.00 Nucleated RBC % 0.0 ESR 6 Sodium 138 Potassium 3.9 Chloride 106 Carbon Dioxide 24 Anion Gap 8.0 BUN 14 Creatinine 0.7 Estimated GFR (MDRD) 106 Glucose 96 Calcium 9.2 Magnesium 1.8 Total Bilirubin 0.4 AST 18 ALT 23 Alkaline Phosphatase 55 C-Reactive Protein < 0.5 Total Protein 6.8 Albumin 4.3 Globulin 2.5 Albumin/Globulin Ratio 1.7 Lipase 44 Urine Color Urine Clarity Urine pH Ur Specific [place] Urine Protein Urine Glucose (UA) Urine Ketones Urine Occult Blood Urine Nitrite Urine Bilirubin Urine Urobilinogen Ur Leukocyte Esterase Urine RBC Urine WBC Ur Squamous Epith Cells Urine Bacteria Ur Microscopic Review Urine Culture Comments Urine HCG, Qual Stool Leukocytes, Qual Stool H. pylori Ag Tiss Transglutamin IgA 03/10/23 20:45 WBC RBC Hgb Hct MCV MCH MCHC RDW Plt Count MPV Neut # (Auto) Lymph # (Auto) [place] # (Auto) Eos # (Auto) Baso # (Auto) Absolute Nucleated RBC Nucleated RBC % ESR Sodium Potassium Chloride Carbon Dioxide Anion Gap BUN Creatinine Estimated GFR (MDRD) Glucose Calcium Magnesium Total Bilirubin AST ALT Alkaline Phosphatase C-Reactive Protein Total Protein Albumin Globulin Albumin/Globulin Ratio Lipase Urine Color Urine Clarity Urine pH Ur Specific [place] Urine Protein Urine Glucose (UA) Urine Ketones Urine Occult Blood Urine Nitrite Urine Bilirubin Urine Urobilinogen Ur Leukocyte Esterase Urine RBC Urine WBC Ur Squamous Epith Cells Urine Bacteria Ur Microscopic Review Urine Culture Comments Urine HCG, Qual Stool Leukocytes, Qual Stool H. pylori Ag Tiss Transglutamin IgA <2 PD Medical Decision Making - ED course Complexity details: reviewed old records (records from admission in February 11- here and ER visit 02/19/2023. CT reports from that time. ), reviewed results, re-evaluated patient (she was improved fairly readily with IV fluids and meds of Inapsine and Toradol, Levsin. Still with some pains and cramps, so Dilaudid dose as well. has been referred to GI but still not for a month or so. Shared discussion to get some GI stool tests to get started with eval of IBD/Crohns type. ), considered differential (episode of NVD (only small loose stools so far, not as much diarrhea as prior times) with lower abd cramping pain, similar to other episodes in the past 2-3 months. Had intestinal virus on prior. COnsider IBD as well and can get stool tests for that. To give IV fluids, meds. ), d/w patient Departure - Departure Disposition: 01 Home, Self Care Clinical Impression: Bilateral lower abdominal cramping, Nausea vomiting and diarrhea Condition: Stable Record reviewed to determine appropriate education?: Yes Instructions: ED Abdominal Pain Female Non-Specific Abdominal Pain Prescriptions: Prochlorperazine Supp [Compazine Supp] 25 mg [place] ONCE PRN #5 supp PRN Reason: Nausea / Vomiting Digestive 8/L.acidoph/Pectin [Digestive Enzymes Tablet] 2 each PO DAILY #40 tablet Hyoscyamine [Levsin] 0.125 mg SL AC PRN #20 tablet PRN Reason: Abdominal Pain Metoclopramide [Reglan] 10 mg PO ACHS PRN #20 tablet PRN Reason: Nausea / Vomiting Simethicone 180 mg PO BID PRN #20 cap PRN Reason: Abdominal Pain Comments: Small frequent fluids tonight. [place] food. Progress diet as tolerated. For the nausea and vomiting, use the ondansetron that you have at home. You can add in or alternatively use metoclopramide/Reglan 4 times daily if needed. If you are having enough vomiting that oral medications are not tolerable, I did write for some Compazine suppositories. Regarding the cramps, continue with your proton pump inhibitor. Add simethicone for gas. You can do Levsin/hyoscyamine every 6-8 hours if needed for cramps when they are more severe. Tylenol or ibuprofen if needed for pains as well. I would also suggest perhaps some digestive enzymes daily for a few weeks and see if that helps and you could also do some probiotics. Your intestinal stool studies are pending. The results should come back in the next 2 to 3 days. Follow-up with your primary care regarding those. I sent your prescriptions to the [facility]. Return if worse again. Forms: PCP List, Activity restrictions Discharge Date/Time: 03/10/23 22:17
[2023-03-10 20:10] VITALS: O2SAT 98
[2023-03-10] MEDS ORDERED: SODIUM CHLORIDE 0.9% 1,000 ML IV STA (20:23)
[2023-03-10] MEDS ORDERED: KETOROLAC 15 MG/ML VIAL IVP STA (20:23)
[2023-03-10] MEDS ORDERED: HYDROmorphone 1 MG/ML CARPUJECT IVP STA (20:23)
[2023-03-10] MEDS ORDERED: SUCRALFATE 1 GM/10 ML UDC PO STA (20:23)
[2023-03-10] MEDS ORDERED: DROPERIDOL 5 MG/2 ML VIAL IVP STA (20:23)
[2023-03-10] MEDS ORDERED: SIMETHICONE 40 MG/0.6 ML 15 ML BOTTLE PO STA (20:24)
[2023-03-10] MEDS ORDERED: HYOSCYAMINE SL 0.125 MG TABLET SL STA (20:32)
[2023-03-10 20:54] LABS: BASOPHILS % (AUTO) 0.5 %; EOSINOPHILS # (AUTO) 0.1 10^3/uL (0.0-0.7); EOSINOPHILS % (AUTO) 1.2 %; HCT - HEMATOCRIT 42.8 % (37.0-47.0); HGB - HEMOGLOBIN 13.6 g/dL (12.0-16.0); LYMPHOCYTES # (AUTO) 2.5 10^3/uL (1.5-3.5); MEAN CORPUSCULAR HEMOGLOBIN 27.9 pg (27.0-31.0); MEAN CORPUSCULAR HGB CONC 31.8 g/dL (32.0-36.0); MEAN CORPUSCULAR VOLUME 87.7 fL (81.0-99.0); MEAN PLATELET VOLUME 10.2 fL (7.9-10.8); MONOCYTES # (AUTO) 0.6 10^3/uL (0.0-1.0); MONOCYTES % (AUTO) 7.7 %; NEUTROPHILS # (AUTO) 4.9 10^3/uL (1.5-6.6); NEUTROPHILS % (AUTO) 59.5 %; PLT - PLATELET COUNT 293 10^3/uL (130-450); RED BLOOD COUNT 4.88 10^6/uL (4.20-5.40); RED CELL DISTRIBUTION WIDTH 12.3 % (12.0-15.0); WHITE BLOOD COUNT 8.2 x10^3/uL (4.8-10.8)
[2023-03-10 20:58] LABS: H. PYLORIS ANTIGEN STL NEGATIVE (Negative)
[2023-03-10] MEDS ORDERED: MAG HYDROX/AL HYDROX/SIMETH 30 ML UDC PO STA (21:00)
[2023-03-10 21:03] LABS: BILIRUBIN,URINE NEGATIVE (NEGATIVE); GLUCOSE, URINE (UA) NEGATIVE (NEGATIVE); KETONES,URINE (UA) TRACE mg/dL (NEGATIVE); LEUKOCYTE ESTERASE, URINE SMALL (NEGATIVE); NITRITE,URINE NEGATIVE (NEGATIVE); OCCULT BLOOD,URINE NEGATIVE (NEGATIVE); PROTEIN,URINE NEGATIVE (NEGATIVE); UROBILINOGEN,URINE 1 (NORMAL) E.U./dL (NORMAL)
[2023-03-10 21:10] LABS: ALBUMIN 4.3 g/dL (3.2-5.5); ALBUMIN/GLOBULIN RATIO 1.7 (1.0-2.2); ALKALINE PHOSPHATASE 55 IU/L (42-121); ALT ALANINE AMINOTRANSFERASE 23 IU/L (10-60); AST ASPARTATE AMINOTRANSFERASE 18 IU/L (10-42); BILIRUBIN,TOTAL 0.4 mg/dL (0.2-1.0); BUN - BLOOD UREA NITROGEN 14 mg/dL (6-20); CALCIUM 9.2 mg/dL (8.5-10.3); CARBON DIOXIDE - CO2 24 mmol/L (21-32); CHLORIDE 106 mmol/L (101-111); CREATININE 0.7 mg/dL (0.6-1.3); CRP - C-REACTIVE PROTEIN < 0.5 mg/dL (<0.5); GFR - MDRD 106 (>89); GLUCOSE 96 mg/dL (74-104); LIPASE 44 U/L (11-82); MAGNESIUM 1.8 mg/dL (1.7-2.3); POTASSIUM 3.9 mmol/L (3.5-4.5); SODIUM 138 mmol/L (135-145); TOTAL PROTEIN 6.8 g/dL (6.4-8.9)
[2023-03-10 21:10] LABS: CLARITY,URINE CLEAR (CLEAR); HCG UR QUAL NEGATIVE
[2023-03-10 21:11] LABS: BACTERIA,URINE Many /HPF (None Seen); RBC,URINE 0-5 /HPF (0-5); SQUAMOUS EPITHELIAL CELL,UR FEW Squamous (<= Few)
[2023-03-10] MEDS ORDERED: SIMETHICONE CHEW 80 MG TABLET PO STA (21:34)
[2023-03-10 22:19] VITALS: BP 110/60
[2023-03-18 13:10] LABS: FECAL FATS NEUTRAL Increased (.); FECAL FATS TOTAL Increased (.)
== END 2023-03-10 22:17 | disposition home or self-care (01) ==
LOC: ED 19:57
DX: R10.31 Right lower quadrant pain (principal); R10.32 Left lower quadrant pain; R11.2 Nausea with vomiting, unspecified; R19.7 Diarrhea, unspecified; Z79.899 Other long term (current) drug therapy
CPT/HCPCS: 36415; 80053; 81001; 81025; 82705; 83630; 83690; 83735; 83993; 85025; 85651; 86140; 86364; 87045; 87046; 87086; 87338; 87427; 96374; 96375; 99283; A9270; J1170; 81003

== ENCOUNTER 2023-03-22 20:48 | Outpatient (CLI) | payer OTHER | END 2023-03-22 23:59 | disposition short-term general hospital (02) | LOC: EMS 20:48 | DX: R10.30 Lower abdominal pain, unspecified (principal); R07.9 Chest pain, unspecified; R06.02 Shortness of breath; R20.0 Anesthesia of skin; R11.0 Nausea | CPT/HCPCS: A0425; A0427 ==

== ENCOUNTER 2023-03-24 12:07 | Emergency (ER) | payer OTHER ==
[2023-03-24 12:51] LABS: BASOPHILS % (AUTO) 0.3 %; EOSINOPHILS # (AUTO) 0.1 10^3/uL (0.0-0.7); EOSINOPHILS % (AUTO) 0.7 %; HCT - HEMATOCRIT 43.4 % (37.0-47.0); HGB - HEMOGLOBIN 14.3 g/dL (12.0-16.0); LYMPHOCYTES # (AUTO) 1.5 10^3/uL (1.5-3.5); LYMPHOCYTES % (AUTO) 22.1 %; MEAN CORPUSCULAR HEMOGLOBIN 28.5 pg (27.0-31.0); MEAN CORPUSCULAR HGB CONC 32.9 g/dL (32.0-36.0); MEAN CORPUSCULAR VOLUME 86.6 fL (81.0-99.0); MEAN PLATELET VOLUME 10.3 fL (7.9-10.8); MONOCYTES # (AUTO) 0.4 10^3/uL (0.0-1.0); NEUTROPHILS # (AUTO) 4.8 10^3/uL (1.5-6.6); NEUTROPHILS % (AUTO) 70.8 %; PLT - PLATELET COUNT 292 10^3/uL (130-450); RED BLOOD COUNT 5.01 10^6/uL (4.20-5.40); RED CELL DISTRIBUTION WIDTH 12.2 % (12.0-15.0); WHITE BLOOD COUNT 6.8 x10^3/uL (4.8-10.8)
[2023-03-24 13:09] LABS: ALBUMIN 4.6 g/dL (3.2-5.5); ALBUMIN/GLOBULIN RATIO 1.6 (1.0-2.2); BILIRUBIN,TOTAL 0.8 mg/dL (0.2-1.0); CALCIUM 9.4 mg/dL (8.5-10.3); CREATININE 0.5 mg/dL (0.6-1.3); POTASSIUM 3.6 mmol/L (3.5-4.5); TOTAL PROTEIN 7.5 g/dL (6.4-8.9)
--- NOTE | 2023-03-24 13:24 | ED Physician Documentation ---
PD HPI ABD PAIN - Stated complaint Stated Complaint: VOMIT,ABD,DIZZY - Chief complaint Chief Complaint: Abd Pain - History obtained from History obtained from: Patient - History of Present Illness Timing - onset: How many months ago (several months of mid to upper abd pain wtih episodes of severe nausea and vomiting, lasting days sometimes.) Timing - duration: Days (current episode is several days. Has had pain most of the time for months, worse at times. N/V for few days. Seen at [facility] ER 2 days ago and had IV fluids/meds, and again given referral for GI. Pt has appt for early May.) Timing - details: Gradual onset, Still present, Waxing and waning Quality: Cramping, Aching, Pain Location: Epigastric, LUQ Radiation: Upper back. No: Chest Improved by: Vomiting. No: Eating Worsened by: Eating Associated symptoms: Nausea, Vomiting, Loss of appetite. 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 Psych: None Musculoskeletal: None Derm: None - Past Surgical History Past Surgical History: No HEENT: Tonsil/Adenoidectomy - Present Medications Home Medications: Ambulatory Orders Medication Instructions Recorded Confirmed Norethindrone 0.35 mg PO DAILY 02/11/23 02/19/23 Promethazine [Phenergan] 25 mg PO Q6H PRN 02/11/23 02/19/23 Sertraline HCl 100 mg PO DAILY 02/11/23 02/19/23 Diphenoxylate/Atropine [Lomotil] 1 each PO QID PRN #10 tablet 02/17/23 02/19/23 ONDANSETRON ODT Prepack 2 [ZOFRAN 4 mg TL Q6H PRN #10 tablet 02/17/23 02/19/23 ODT Prepack 2] Lidocaine Viscous 2% [Xylocaine 5 - 10 ml MM Q4H #100 ml 12/20/23 Viscous 2%] Ondansetron [Ondansetron Odt] 8 mg PO TID #14 tab 02/19/23 Pantoprazole [Protonix] 40 mg PO DAILY #14 tablet 02/19/23 oxyCODONE [Roxicodone] 5 - 10 mg PO Q6H PRN #14 tablet 02/19/23 Digestive 8/L.acidoph/Pectin 2 each PO DAILY #40 tablet 03/10/23 [Digestive Enzymes Tablet] Hyoscyamine [Levsin] 0.125 mg SL AC PRN #20 tablet 03/10/23 Metoclopramide [Reglan] 10 mg PO ACHS PRN #20 tablet 03/10/23 Prochlorperazine Supp [Compazine 25 mg [place] ONCE PRN #5 supp 03/10/23 Supp] Simethicone 180 mg PO BID PRN #20 cap 03/10/23 - Allergies Allergies/Adverse Reactions: Allergies Allergy/AdvReac Type Severity Reaction Status Date / Time sumatriptan Allergy Anaphylaxis Verified 03/24/23 13:52 promethazine [From Phenergan] AdvReac Anxiety Verified 03/24/23 13:52 - Social History Does the pt smoke?: No Smoking Status: Never smoker Does the pt drink ETOH?: No Does the pt have substance abuse?: No - Immunizations Immunizations are current?: Yes - POLST Patient has POLST: No PD ED PE NORMAL - Vitals Vital signs reviewed: Yes - General General: Alert and oriented X 3, Well developed/nourished - Neck Neck: Supple, no meningeal sign, No adenopathy - Cardiac Cardiac: No murmur. No: RRR (regular but tachycardic) - Respiratory Respiratory: No respiratory distress, Clear bilaterally - Abdomen Abdomen: Soft, Non distended, No organomegaly, Other (tender mid abd to upper abd and more left than right. Guarding mildly, with some percussion tenderness mid to upper abd.). No: Normal bowel sounds (increased) - Female Female : Deferred - Rectal Rectal: Deferred - Back Back: No CVA TTP - Derm Derm: Normal color, Warm and dry Results - Vitals Vitals: Vital Signs - 24 hr 03/24/23 03/24/23 12:33 15:28 Temperature 36 C L Heart Rate 105 H 100 Respiratory 16 18 Rate Blood Pressure 139/64 H 128/60 O2 Saturation 100 95 Oxygen O2 Source Room air - Labs Labs: Laboratory Tests 03/24/23 03/24/23 03/24/23 12:47 12:47 12:47 WBC 6.8 RBC 5.01 Hgb 14.3 Hct 43.4 MCV 86.6 MCH 28.5 MCHC 32.9 RDW 12.2 Plt Count 292 MPV 10.3 Neut # (Auto) 4.8 Lymph # (Auto) 1.5 [place] # (Auto) 0.4 Eos # (Auto) 0.1 Baso # (Auto) 0.0 Absolute Nucleated RBC 0.00 Nucleated RBC % 0.0 Sodium 139 Potassium 3.6 Chloride 105 Carbon Dioxide 22 Anion Gap 12.0 BUN 10 Creatinine 0.5 L Estimated GFR (MDRD) 156 Glucose 83 Calcium 9.4 Magnesium 1.6 L Total Bilirubin 0.8 AST 12 ALT 13 Alkaline Phosphatase 53 Total Protein 7.5 Albumin 4.6 Globulin 2.9 Albumin/Globulin Ratio 1.6 Lipase 38 PD Medical Decision Making - ED course Complexity details: reviewed old records (has had visits for similar with prior CTs, US, HIDA. Labs. Has referral to [facility] but not until early May. ), reviewed results (normal renal function so does not seem chronic dehydrated per se. Mag low at 1.6. Other lytes are good. ), re-evaluated patient (improved nausea with Inaspine and Toradol. Given then DIlaudid for pain that was only down to 7/10. Zofran also given as N/V started to increas again. She is then able to take fluids PO without emesis. ), considered differential, d/w patient ED course: The patient had left without instructions. I did reach her by phone and conveyed to that we did get an appointment lined up for her Friday at 225 which is in 2 days. She will call the office there to confirm location address etc. Departure - Departure Disposition: Home, Self Care Clinical Impression: Nausea and vomiting, Volume depletion, Chronic abdominal pain Condition: Stable Record reviewed to determine appropriate education?: Yes Instructions: ED Abdominal Pain Female Non-Specific Abdominal Pain, ED Nausea Vomiting Comments: We did speak with the [facility] gastroenterology group. They were able to give you an appointment this Friday at [phone] in the afternoon. He had just left the emergency department. I tried contacting you on your phone number. I will try contacting again later. Continue usual medicines otherwise. Forms: PCP List Discharge Date/Time: 03/24/23 16:16
[2023-03-24] MEDS ORDERED: DROPERIDOL 5 MG/2 ML VIAL IVP STA (13:52)
[2023-03-24] MEDS ORDERED: SODIUM CHLORIDE 0.9% 1,000 ML IV STA ×2 (13:52→14:42)
[2023-03-24] MEDS ORDERED: KETOROLAC 15 MG/ML VIAL IVP STA (13:52)
[2023-03-24] MEDS ORDERED: MAGNESIUM SULFATE 2 GRAM 2 GM/50 ML BAG IV ONE (14:40)
[2023-03-24] MEDS ORDERED: HYDROmorphone 1 MG/ML CARPUJECT IVP STA (14:41)
[2023-03-24] MEDS ORDERED: ONDANSETRON 4 MG/2 ML VIAL IVP STA (14:41)
[2023-03-24] MEDS ORDERED: HYOSCYAMINE SL 0.125 MG TABLET SL STA (14:41)
[2023-03-24 15:36] VITALS: BP 128/60; O2SAT 95
== END 2023-03-24 16:16 | disposition home or self-care (01) ==
LOC: ED 12:07
DX: R11.2 Nausea with vomiting, unspecified (principal); R10.10 Upper abdominal pain, unspecified; G89.29 Other chronic pain
CPT/HCPCS: 36415; 80053; 83690; 83735; 85025; 96361; 96365; 96375; 99283; 99284; A9270; J1170

== ENCOUNTER 2023-07-24 15:35 | Outpatient (CLI) | payer OTHER | END 2023-07-24 15:36 | disposition critical access hospital (66) | LOC: EMS 15:35 | DX: R06.00 Dyspnea, unspecified (principal); R06.2 Wheezing | CPT/HCPCS: A0425; A0427 ==

== ENCOUNTER 2023-08-06 18:40 | Outpatient (CLI) | payer OTHER | END 2023-08-06 23:59 | disposition critical access hospital (66) | LOC: EMS 18:40 | DX: R56.9 Unspecified convulsions (principal) | CPT/HCPCS: A0425; A0427 ==

== ENCOUNTER 2023-08-06 19:03 | Emergency (ER) | payer OTHER ==
[2023-08-06 19:21] VITALS: O2SAT 98
[2023-08-06 19:32] LABS: BASOPHILS % (AUTO) 0.1 %; HGB - HEMOGLOBIN 14.3 g/dL (12.0-16.0); LYMPHOCYTES # (AUTO) 1.9 10^3/uL (1.5-3.5); LYMPHOCYTES % (AUTO) 11.9 %; MEAN CORPUSCULAR HEMOGLOBIN 28.2 pg (27.0-31.0); MEAN CORPUSCULAR HGB CONC 31.8 g/dL (32.0-36.0); MEAN CORPUSCULAR VOLUME 88.8 fL (81.0-99.0); NEUTROPHILS # (AUTO) 13.1 10^3/uL (1.5-6.6); NEUTROPHILS % (AUTO) 80.8 %; PLT - PLATELET COUNT 369 10^3/uL (130-450); RED BLOOD COUNT 5.07 10^6/uL (4.20-5.40); RED CELL DISTRIBUTION WIDTH 12.1 % (12.0-15.0); WHITE BLOOD COUNT 16.2 x10^3/uL (4.8-10.8)
[2023-08-06 19:47] LABS: ALBUMIN 4.2 g/dL (3.2-5.5); ALBUMIN/GLOBULIN RATIO 1.8 (1.0-2.2); ALKALINE PHOSPHATASE 49 IU/L (42-121); ALT ALANINE AMINOTRANSFERASE 77 IU/L (10-60); AST ASPARTATE AMINOTRANSFERASE 17 IU/L (10-42); BILIRUBIN,TOTAL 0.4 mg/dL (0.2-1.0); BUN - BLOOD UREA NITROGEN 12 mg/dL (6-20); CALCIUM 9.3 mg/dL (8.5-10.3); CARBON DIOXIDE - CO2 25 mmol/L (21-32); CHLORIDE 104 mmol/L (101-111); CREATININE 0.5 mg/dL (0.6-1.3); GFR - MDRD 156 (>89); GLUCOSE 112 mg/dL (74-104); LIPASE 31 U/L (11-82); POTASSIUM 4.1 mmol/L (3.5-4.5); SODIUM 138 mmol/L (135-145); TOTAL PROTEIN 6.5 g/dL (6.4-8.9)
[2023-08-06 19:51] LABS: TROPONIN I HIGH SENSITIVITY < 2.3 ng/L (2.3-14.8)
--- NOTE | 2023-08-06 19:53 | ED Physician Documentation ---
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 patient received 5mg versed en route via ems. initially she is not speaking but then becomes conversant over the course of her stay. 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 Psych: None Musculoskeletal: None Derm: None - Past Surgical History Past Surgical History: No HEENT: Tonsil/Adenoidectomy - Present Medications Home Medications: Ambulatory Orders Medication Instructions Recorded Confirmed Norethindrone 0.35 mg PO DAILY 02/11/23 07/24/23 Sertraline HCl 100 mg PO DAILY 02/11/23 07/24/23 ONDANSETRON ODT Prepack 2 [ZOFRAN 4 mg TL Q6H PRN #10 tablet 02/17/23 07/24/23 ODT Prepack 2] Digestive 8/L.acidoph/Pectin 2 each PO DAILY #40 tablet 03/10/23 07/24/23 [Digestive Enzymes Tablet] Albuterol Sulfate [Proair 2 puffs INH Q4H PRN 07/25/23 07/25/23 Respiclick] - Allergies Allergies/Adverse Reactions: Allergies Allergy/AdvReac Type Severity Reaction Status Date / Time alprazolam [From Xanax] Allergy Respiratory Verified 08/06/23 19:12 sumatriptan Allergy Anaphylaxis Verified 08/06/23 19:12 promethazine [From Phenergan] AdvReac Anxiety Verified 08/06/23 19:12 - Social History Does the pt smoke?: No Smoking Status: Never smoker Does the pt drink ETOH?: No Does the pt have substance abuse?: No - Immunizations Immunizations are current?: Yes - POLST Patient has POLST: No PD ED PE NORMAL - Vitals Vital signs reviewed: Yes - General General: Alert and oriented X 3, No acute distress, Well developed/nourished, Other (initially nonresponsive, then upon reexam patient is now alert and oriented) - HEENT HEENT: Atraumatic, PERRL, EOMI, Moist mucous membranes, Pharynx benign - Neck Neck: Supple, no meningeal sign - Cardiac Cardiac: RRR - Respiratory Respiratory: No respiratory distress, Clear bilaterally - Abdomen Abdomen: Non tender, Non distended - Derm Derm: Normal color, Warm and dry - Extremities Extremities: No deformity - Neuro Neuro: Alert and oriented X 3, 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8 MCH 28.2 MCHC 31.8 L RDW 12.1 Plt Count 369 MPV 10.0 Neut # (Auto) 13.1 H Lymph # (Auto) 1.9 [place] # (Auto) 1.0 Eos # (Auto) 0.0 Baso # (Auto) 0.0 Absolute Nucleated RBC 0.00 Nucleated RBC % 0.0 Sodium 138 Potassium 4.1 Chloride 104 Carbon Dioxide 25 Anion Gap 9.0 BUN 12 Creatinine 0.5 L Estimated GFR (MDRD) 156 Glucose 112 H Calcium 9.3 Total Bilirubin 0.4 AST 17 ALT 77 H Alkaline Phosphatase 49 Troponin I High Sens < 2.3 L Total Protein 6.5 Albumin 4.2 Globulin 2.3 Albumin/Globulin Ratio 1.8 Lipase 31 PD Medical Decision Making - ED course ED course: 22yF p/w pseudoseizure tonight, recently diagnosed by VEEG monitoring at [facility]. patient is well appearing otherwise with benign cardiac monitoring. plan to f/u pcp for referral to CBT. also offered complementary medicine referrals. return precautions given. Departure - Departure Disposition: 01 Home, Self Care Clinical Impression: Psychogenic nonepileptic seizure Condition: Stable Comments: You were seen in the emergency department for Psychogenic nonepileptic seizures also known as pseudoseizures. Please follow-up with your primary care provider and mobile manager and return to the emergency department if you have any new or worsening symptoms or other concerns. For more information: [email or web address] I recommend considering CBT or EMDR. I also recommend craniosacral therapy and other complementary medicine treatments as options for integrating your care. Maureen Graham is a wonderful recommended provider in your area. [email or web address] Forms: PCP List Discharge Date/Time: 08/06/23 20:19
[2023-08-06 20:28] VITALS: BP 151/82
== END 2023-08-06 20:19 | disposition home or self-care (01) ==
LOC: EDUNIT# → ED 19:03
DX: F44.5 Conversion disorder with seizures or convulsions (principal)
CPT/HCPCS: 36415; 80053; 82803; 83690; 84484; 85025; 99283; 99284

== ENCOUNTER 2023-08-11 19:33 | Outpatient (CLI) | payer OTHER | END 2023-08-11 23:59 | disposition short-term general hospital (02) | LOC: EMS 19:33 | DX: R56.9 Unspecified convulsions (principal) | CPT/HCPCS: A0425; A0429 ==

== ENCOUNTER 2023-08-26 13:00 | Outpatient (CLI) | payer OTHER | END 2023-08-26 13:01 | disposition critical access hospital (66) | LOC: EMS 13:00 | DX: R56.9 Unspecified convulsions (principal) | CPT/HCPCS: A0425; A0427 ==

== ENCOUNTER 2023-08-26 13:33 | Emergency (ER) | payer OTHER ==
[2023-08-26] MEDS ORDERED: PROPOFOL 1000 MG/100 ML 1,000 MG/100 ML BOTTLE IV ONE (13:36)
--- NOTE | 2023-08-26 13:38 | ED Physician Documentation ---
History of Present Illness - Stated complaint Stated Complaint: SZ/INTUBATED - History obtained from History obtained from: EMS - Additonal information Additional information: 22-year-old with history of asthma, she was hospitalized here in late July for bronchitis with hypoxemia. She ended up becoming intubated and then was sent to [facility] where according to my partner's last note she was diagnosed with pseudoseizures by video EEG. She is on Keppra. All of the history is from EMS as the patient is now intubated: Reportedly the left the house this morning at 6 AM and then returned at noon finding her obtunded. There was evidence of seizure activity without consciousness for EMS and ended up vomiting and becoming somewhat bradycardic and was intubated. On arrival she is intubated and sedated having had etomidate , Versed, and rocuronium prior to arrival. 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 : Other Psych: None Musculoskeletal: None Derm: None - Past Surgical History Past Surgical History: No HEENT: Tonsil/Adenoidectomy - Present Medications Home Medications: Ambulatory Orders Medication Instructions Recorded Confirmed Norethindrone 0.35 mg PO DAILY 02/11/23 08/26/23 Sertraline HCl 100 mg PO DAILY 02/11/23 08/26/23 Albuterol Sulfate [Proair 2 puffs INH Q4H PRN 07/25/23 08/26/23 Respiclick] Benzonatate 200 mg PO TID PRN 08/26/23 08/26/23 Budesonide [Pulmicort Flexhaler] 2 puffs IH BID 08/26/23 08/26/23 Ipratropium/Albuterol [Duoneb] 3 ml INH QID PRN 08/26/23 08/26/23 Ondansetron Odt [Zofran Odt] 4 mg TL TID PRN 08/26/23 08/26/23 Sertraline [Zoloft] 50 mg PO DAILY PM 08/26/23 08/26/23 levETIRAcetam [Keppra] 500 mg PO BID 08/26/23 08/26/23 - Allergies Allergies/Adverse Reactions: Allergies Allergy/AdvReac Type Severity Reaction Status Date / Time alprazolam [From Xanax] Allergy Respiratory Verified 08/26/23 13:37 sumatriptan Allergy Anaphylaxis Verified 08/26/23 13:37 promethazine [From Phenergan] AdvReac Anxiety Verified 08/26/23 13:37 - Social History Does the pt smoke?: No Smoking Status: Never smoker Does the pt drink ETOH?: No Does the pt have substance abuse?: No - Immunizations Immunizations are current?: Yes - POLST Patient has POLST: No PD ED PE NORMAL - Vitals Vital signs reviewed: Yes - General General: Other (She is unconscious and intubated) - HEENT HEENT: Other (Dilated nonreactive pupils) - Cardiac Cardiac: RRR, No murmur - Respiratory Respiratory: Other (Rhonchorous bilaterally on the ventilator) - Abdomen Abdomen: Non tender - Extremities Extremities: No edema, No calf tenderness / cord - Neuro Eye Opening: None Motor: None Verbal: None GCS Score: 3 Results - Vitals Vitals: Vital Signs - 24 hr 08/26/23 08/26/23 08/26/23 13:37 13:46 13:52 Temperature 37.4 C Heart Rate 88 87 94 Respiratory 29 H 20 Rate Blood Pressure 154/83 H 151/90 H O2 Saturation 100 100 08/26/23 08/26/23 08/26/23 14:01 14:16 14:46 Temperature Heart Rate 95 84 123 H Respiratory 20 20 14 Rate Blood Pressure 170/98 H 159/89 H 126/74 O2 Saturation 100 99 08/26/23 08/26/23 08/26/23 15:01 15:15 15:30 Temperature Heart Rate 122 H 122 H 112 H Respiratory 18 18 19 Rate Blood Pressure 140/80 H 116/67 114/60 O2 Saturation 96 97 98 08/26/23 08/26/23 08/26/23 15:45 15:47 16:00 Temperature Heart Rate 88 82 86 Respiratory 20 20 Rate Blood Pressure 116/66 112/57 L O2 Saturation 100 97 Oxygen O2 Source Mechanical ventilator - EKG (time done) 1401 EKG releavant findings:: EKG personally interpreted by author of this note. Relevant findings are: Rate: Rate (enter#) (88) Rhythm: NSR [place]: Normal Intervals: Normal [place] QRS: Normal Ischemia: Normal ST segments - Labs Labs: Laboratory Tests 08/26/23 08/26/23 08/26/23 13:35 13:35 13:35 WBC 6.6 RBC 4.81 Hgb 13.6 Hct 42.5 MCV 88.4 MCH 28.3 MCHC 32.0 RDW 11.9 L Plt Count 264 MPV 10.1 Neut # (Auto) 3.9 Lymph # (Auto) 1.8 [place] # (Auto) 0.8 Eos # (Auto) 0.1 Baso # (Auto) 0.0 Absolute Nucleated RBC 0.00 Nucleated RBC % 0.0 VBG pH 7.422 H VBG pCO2 34.4 L VBG pO2 62.1 H VBG HCO3 21.9 L VBG Total CO2 23.0 L VBG O2 Saturation 93.0 H VBG Base Excess -1.8 Sodium 138 Potassium 3.7 Chloride 106 Carbon Dioxide 26 Anion Gap 6.0 BUN 10 Creatinine 0.6 Estimated GFR (MDRD) 126 Glucose 101 Calcium 9.4 Magnesium 1.6 L Total Bilirubin 0.6 AST 19 ALT 25 Alkaline Phosphatase 57 Total Protein 7.0 Albumin 4.3 Globulin 2.7 Albumin/Globulin Ratio 1.6 Urine Color Urine Clarity Urine pH Ur Specific Whick Urine Protein Urine Glucose (UA) Urine Ketones Urine Occult Blood Urine Nitrite Urine Bilirubin Urine Urobilinogen Ur Leukocyte Esterase Ur Microscopic Review Urine Culture Comments Urine HCG, Qual Nasal Adenovirus (PCR) Nasal B. parapertussis DNA (PCR) Nasal Coronavir 229E PCR Nasal Coronavir HKU1 PCR Nasal Coronavir NL63 PCR Nasal Coronavir OC43 PCR Nasal Enterovir/Rhinovir PCR Nasal Influenza B PCR Nasal Influenza A PCR Nasal Parainfluen 1 PCR Nasal Parainfluen 2 PCR Nasal Parainfluen 3 PCR Nasal Parainfluen 4 PCR Nasal RSV (PCR) Nasal B.pertussis DNA PCR Nasal C.pneumoniae (PCR) Tomas Human Metapneumo PCR Nasal M.pneumoniae (PCR) Nasal SARS-CoV-2 (PCR) Salicylates < 1.5 Urine Opiates Screen Ur Buprenorphine Scrn Ur Oxycodone Screen Urine Methadone Screen Acetaminophen 0.1 Ur Barbiturates Screen Ur Tricyclics Screen Ur Phencyclidine Scrn Ur Amphetamine Screen U Methamphetamines Scrn U Benzodiazepines Scrn Urine Cocaine Screen U Cannabinoids Screen Ur Drug Screen Comment Ethyl Alcohol < 10.0 08/26/23 08/26/23 13:37 13:50 WBC RBC Hgb Hct MCV MCH MCHC RDW Plt Count MPV Neut # (Auto) Lymph # (Auto) [place] # (Auto) Eos # (Auto) Baso # (Auto) Absolute Nucleated RBC Nucleated RBC % VBG pH VBG pCO2 VBG pO2 VBG HCO3 VBG Total CO2 VBG O2 Saturation VBG Base Excess Sodium Potassium Chloride Carbon Dioxide Anion Gap BUN Creatinine Estimated GFR (MDRD) Glucose Calcium Magnesium Total Bilirubin AST ALT Alkaline Phosphatase Total Protein Albumin Globulin Albumin/Globulin Ratio Urine Color YELLOW Urine Clarity CLEAR Urine pH 6.0 Ur Specific Whick 1.025 Urine Protein NEGATIVE Urine Glucose (UA) NEGATIVE Urine Ketones NEGATIVE Urine Occult Blood NEGATIVE Urine Nitrite NEGATIVE Urine Bilirubin NEGATIVE Urine Urobilinogen 0.2 (NORMAL) Ur Leukocyte Esterase NEGATIVE Ur Microscopic Review NOT INDICATED Urine Culture Comments NOT INDICATED Urine HCG, Qual NEGATIVE Nasal Adenovirus (PCR) NOT DETECTED Nasal B. parapertussis DNA (PCR) NOT DETECTED Nasal Coronavir 229E PCR NOT DETECTED Nasal Coronavir HKU1 PCR NOT DETECTED Nasal Coronavir NL63 PCR NOT DETECTED Nasal Coronavir OC43 PCR NOT DETECTED Nasal Enterovir/Rhinovir PCR DETECTED A Nasal Influenza B PCR NOT DETECTED Nasal Influenza A PCR NOT DETECTED Nasal Parainfluen 1 PCR NOT DETECTED Nasal Parainfluen 2 PCR NOT DETECTED Nasal Parainfluen 3 PCR NOT DETECTED Nasal Parainfluen 4 PCR NOT DETECTED Nasal RSV (PCR) NOT DETECTED Nasal B.pertussis DNA PCR NOT DETECTED Nasal C.pneumoniae (PCR) NOT DETECTED Tomas Human Metapneumo PCR NOT DETECTED Nasal M.pneumoniae (PCR) NOT DETECTED Nasal SARS-CoV-2 (PCR) NOT DETECTED Salicylates Urine Opiates Screen NEGATIVE Ur Buprenorphine Scrn NEGATIVE Ur Oxycodone Screen NEGATIVE Urine Methadone Screen NEGATIVE Acetaminophen Ur Barbiturates Screen NEGATIVE Ur Tricyclics Screen NEGATIVE Ur Phencyclidine Scrn NEGATIVE Ur Amphetamine Screen NEGATIVE U Methamphetamines Scrn NEGATIVE U Benzodiazepines Scrn NEGATIVE Urine Cocaine Screen NEGATIVE U Cannabinoids Screen NEGATIVE Ur Drug Screen Comment CUTOFF CONC BELOW: Ethyl Alcohol - Rads (name of study) Single view abdominal x-ray showing NG tube in the stomach Relevant Findings:: Final report received, EMP independent interpretation of test CT of the head showing some motion artifact but grossly negative. Relevant Findings:: Final report received, EMP independent interpretation of test Single view chest x-ray demonstrating clear lungs with appropriate placement of ETT Relevant Findings:: Final report received, EMP independent interpretation of test PD Medical Decision Making - ED course ED course: 22-year-old woman presents with potential seizure activity now with respiratory failure. On arrival she is sedated and intubated but subsequently starts to have episodes of shaking and unresponsiveness. At times between these episodes she is responsive and follows commands but then will have more episodes of shaking. There are certainly not classic epileptic seizures but they are concerning and given the lack of EEG capability here the who is at the bedside is agreeable to transfer for neurologic evaluation. Reportedly had negative video EEG x 24 hours at [facility] last month, but subsequent follow-up with neurology in [place] it was suggested to the that she could still have seizures as she had sedatives on board at the time of the video EEG monitoring. She was medicated here initially with a propofol drip and then required boluses of Ativan for potential seizure activity a few times and was loaded with Keppra as well. It did not sound like she would have been able to take her Keppra this morning so was given a full dose. Labs demonstrated an unremarkable CBC, VBG, CMP save for mild hypomagnesemia, urinalysis was normal. [employer] respiratory panel positive for enterovirus/rhinovirus. Toxicology screens were negative. Spoke with Dr Loomis, toddler nanny at who declines d/t lack of neuro tonight and no VEEG available. She was graciously accepted to the [facility] ICU by Dr. Morton at about 4:20 PM. - Critical Care Time(min): 44 Time Includes: Direct patient care, Review records, Reassess patient, Document care, Coordinate care, Medical consult, Family consult for pa dec Data interpretation: Labs, Pulse ox, ABG, CXR Procedures included in critical care time: Peripheral IV Procedures excluded from critical care time: EKG Departure - Departure Disposition: 02 Transfer Acute Care Hosp Clinical Impression: Status epilepticus, Respiratory failure Condition: Critical
[2023-08-26 13:42] LABS: BASOPHILS % (AUTO) 0.3 %; EOSINOPHILS # (AUTO) 0.1 10^3/uL (0.0-0.7); EOSINOPHILS % (AUTO) 0.8 %; HCT - HEMATOCRIT 42.5 % (37.0-47.0); HGB - HEMOGLOBIN 13.6 g/dL (12.0-16.0); LYMPHOCYTES # (AUTO) 1.8 10^3/uL (1.5-3.5); LYMPHOCYTES % (AUTO) 27.1 %; MEAN CORPUSCULAR HEMOGLOBIN 28.3 pg (27.0-31.0); MEAN CORPUSCULAR VOLUME 88.4 fL (81.0-99.0); MEAN PLATELET VOLUME 10.1 fL (7.9-10.8); MONOCYTES # (AUTO) 0.8 10^3/uL (0.0-1.0); MONOCYTES % (AUTO) 11.7 %; NEUTROPHILS # (AUTO) 3.9 10^3/uL (1.5-6.6); NEUTROPHILS % (AUTO) 59.6 %; PLT - PLATELET COUNT 264 10^3/uL (130-450); RED BLOOD COUNT 4.81 10^6/uL (4.20-5.40); RED CELL DISTRIBUTION WIDTH 11.9 % (12.0-15.0); WHITE BLOOD COUNT 6.6 x10^3/uL (4.8-10.8)
[2023-08-26 13:44] LABS: VBG BASE EXCESS -1.8 mmol/L (-2 - +2); VBG HCO3 21.9 mmol/L (23-28); VBG PCO2 34.4 mmHg (41-51); VBG PH 7.422 (7.31-7.41); VBG PO2 62.1 mmHg (25-47)
[2023-08-26] MEDS: PROPOFOL 1000 MG/100 ML 1,000 MG/100 ML BOTTLE IV STA ×2 (13:45→17:18)
[2023-08-26 14:02] LABS: BILIRUBIN,URINE NEGATIVE (NEGATIVE); GLUCOSE, URINE (UA) NEGATIVE (NEGATIVE); KETONES,URINE (UA) NEGATIVE (NEGATIVE); LEUKOCYTE ESTERASE, URINE NEGATIVE (NEGATIVE); NITRITE,URINE NEGATIVE (NEGATIVE); OCCULT BLOOD,URINE NEGATIVE (NEGATIVE); PROTEIN,URINE NEGATIVE (NEGATIVE); UROBILINOGEN,URINE 0.2 (NORMAL) E.U./dL (NORMAL)
[2023-08-26 14:05] LABS: CLARITY,URINE CLEAR (CLEAR); HCG UR QUAL NEGATIVE
[2023-08-26 14:05] LABS: ACETAMINOPHEN 0.1 ug/mL; ETOH - ETHANOL < 10.0 mg/dL; MAGNESIUM 1.6 mg/dL (1.7-2.3)
[2023-08-26 14:17] LABS: AMPHETAMINE SCREEN,URINE NEGATIVE (NEGATIVE); BARBITURATE SCREEN,UR NEGATIVE (NEGATIVE); BENZODIAZEPINES SCREEN, URINE NEGATIVE (NEGATIVE); BUPRENORPHINE SCREEN, URINE NEGATIVE (NEGATIVE); COCAINE SCREEN URINE NEGATIVE (NEGATIVE); METHADONE SCREEN, URINE NEGATIVE (NEGATIVE); METHAMPHETAMINES SCREEN, URINE NEGATIVE (NEGATIVE); OPIATE SCREEN, URINE NEGATIVE (NEGATIVE); OXYCODONE SCREEN, URINE NEGATIVE (NEGATIVE); THC CANNABINOID SCREEN, URINE NEGATIVE (NEGATIVE); TRICYCLIC ANTIDEPRESSANT,URINE NEGATIVE (NEGATIVE)
[2023-08-26 14:18] LABS: ALBUMIN 4.3 g/dL (3.2-5.5); ALBUMIN/GLOBULIN RATIO 1.6 (1.0-2.2); ALKALINE PHOSPHATASE 57 IU/L (42-121); ALT ALANINE AMINOTRANSFERASE 25 IU/L (10-60); AST ASPARTATE AMINOTRANSFERASE 19 IU/L (10-42); BILIRUBIN,TOTAL 0.6 mg/dL (0.2-1.0); BUN - BLOOD UREA NITROGEN 10 mg/dL (6-20); CALCIUM 9.4 mg/dL (8.5-10.3); CARBON DIOXIDE - CO2 26 mmol/L (21-32); CHLORIDE 106 mmol/L (101-111); CREATININE 0.6 mg/dL (0.6-1.3); GFR - MDRD 126 (>89); GLUCOSE 101 mg/dL (74-104); POTASSIUM 3.7 mmol/L (3.5-4.5); SODIUM 138 mmol/L (135-145)
[2023-08-26 14:19] LABS: SALICYLATE < 1.5 mg/dL
[2023-08-26] MEDS: LORazepam 2 MG/ML VIAL IVP STA ×2 (14:22→14:44)
--- NOTE | 2023-08-26 14:50 | XRAY Report ---
PROCEDURE: Chest 1V INDICATIONS: resp fail TECHNIQUE: One view of the chest was acquired. COMPARISON: 07/29/2023 FINDINGS: Surgical changes and devices: ET tube terminates in the trachea Lungs and pleura: Very low lung volumes. No dense consolidation or pleural effusion Mediastinum: Normal heart size. Bones and chest wall: Unremarkable IMPRESSION: Very low lung volumes. No dense airspace disease or pleural effusion on this single view portable art dy. ET tube projects over the mid trachea. Reviewed by: Trae Mendez MD on 08/26/2023 2:48 PM PDT Approved by: Trae Mendez MD on 08/26/2023 2:48 PM PDT Station ID: [id number]
[2023-08-26 14:53] LABS: B. PARAPERTUSSIS- RESP PCR PAN NOT DETECTED; B. PERTUSSIS- RESP PCR PANEL NOT DETECTED; C. PNEUMONIAE- RESP PCR PANEL NOT DETECTED; CORONAVIRUS 229E-RESP PCR NOT DETECTED; CORONAVIRUS HKU1-RESP PCR NOT DETECTED; CORONAVIRUS NL63-RESP PCR NOT DETECTED; CORONAVIRUS OC43-RESP PCR NOT DETECTED; HUMAN METAPNEUMOVIRUS NOT DETECTED; INFLUENZA A- RESP PCR PANEL NOT DETECTED; INFLUENZA B - RESP PCR PANEL NOT DETECTED; M. PNEUMONIAE- RESP PCR PANEL NOT DETECTED; PARAINFLUENZA VIRUS 1 NOT DETECTED; PARAINFLUENZA VIRUS 2 NOT DETECTED; PARAINFLUENZA VIRUS 3 NOT DETECTED; PARAINFLUENZA VIRUS 4 NOT DETECTED; RHINOVIRUS/ENTEROVIRUS DETECTED; RSV- RESP PCR PANEL NOT DETECTED; SARS-CoV-2 -RESP PCR PANEL NOT DETECTED
[2023-08-26] MEDS: levETIRAcetam INJ 1,000 MG in SODIUM CHLORIDE 0.9% 100ML 100 ML IV STA (14:53)
--- NOTE | 2023-08-26 14:53 | XRAY Report ---
PROCEDURE: No-Charge 1V Abdomen INDICATIONS: NGT TECHNIQUE: 1 view of the abdomen were acquired. COMPARISON: None. Findings and impression: Enteric tube terminates in the distal stomach. Nonspecific nonobstructive bowel gas pattern. No acute or suspicious osseous findings on radiography. Reviewed by: Trae Mendez MD on 08/26/2023 2:52 PM PDT Approved by: Trae Mendez MD on 08/26/2023 2:52 PM PDT Station ID: [id number]
--- NOTE | 2023-08-26 14:54 | CT Report ---
PROCEDURE: Head WO INDICATIONS: status epilepticus TECHNIQUE: Noncontrast 4.5 mm thick angled axial sections acquired from the foramen magnum to the vertex. For r adiation dose reduction, the following was used: automated exposure control, adjustment of mA and/or kV according to patient size. COMPARISON: Patient motion artifact. FINDINGS: Image quality: Excellent. CSF spaces: Basal cisterns are patent. No extra-axial fluid collections. Ventricles are normal in size and shape. Brain: No midline shift. No intracranial masses or hemorrhage. White-white matter interface is norm al. Skull and face: Calvarium and visualized facial bones are intact, without suspicious lesions. Sinuses: Mild patchy ethmoid disease. Visualized sinuses and mastoids are otherwise clear. IMPRESSION: 1. There is patient motion artifact which can potentially obscure visualization of dense subdural col lections 2. Allowing for the limits of this examination, no acute intracranial process is identified. Reviewed by: Himanshu Rush MD on 08/26/2023 2:53 PM PDT Approved by: Himanshu Rush MD on 08/26/2023 2:53 PM PDT Station ID: [id number]
[2023-08-26] MEDS: fentaNYL 100 MCG/2 ML VIAL IVP STA (15:20)
[2023-08-26] MEDS: DEXMEDETOMIDINE 400 MCG/100 ML 100 ML IV PRN (15:20)
[2023-08-26 19:08] VITALS: BP 125/63; O2SAT 100
== END 2023-08-26 18:00 | disposition short-term general hospital (02) ==
LOC: EDUNIT# → ED 13:33
DX: J96.90 Respiratory failure, unspecified, unspecified whether with hypoxia or hypercapnia (principal); G40.901 Epilepsy, unspecified, not intractable, with status epilepticus
CPT/HCPCS: 36415; 51702; 70450; 71045; 74018; 80053; 80143; 80179; 80306; 81003; 81025; 82077; 82803; 83735; 85025; 87633; 93005; 94002; 96365; 96366; 96368; 96375; 99291; J2060; 81001; 87086